=== PATIENT | female | born 1970 | race Caucasian/White ===

== ENCOUNTER 2016-08-23 16:01 | Inpatient (IN) ==
--- NOTE | 2016-08-23 16:12 | Emergency Department Note ---
Disposition Clinical Impression: Vomiting, Abdominal wall cellulitis, Abdominal pain, History of recent surgery , Cough, UTI (urinary tract infection), Incarcerated hernia of abdominal cavity , Sepsis, Anemia Disposition: Admitted As Inpatient Referrals: NO,PCP [Non-Partnered Physician] - Forms: ED Satisfaction Letter General Adult HPI - General Chief complaint: ED Nausea/Vomiting/Diarrhea Stated complaint: redness at sugical site// dizzy// N/V Source: patient Limitations: no limitations - History of Present Illness HPI Narrative: 46-year-old female reports emergency department concerned with abdominal pain, redness on the abdominal wall, and recurrent vomiting as well as a cough. The patient states she is status post hysterectomy per Dr. Snowden [facility] at this institution. She states she had surgery on the of this month. Patient is not known to be diabetic. She describes recurrent nonbloody emesis. She states all of the wounds on her abdomen or becoming red with some spreading redness noted. The patient has not had a fever. There is no history of diarrhea. She complains of abdominal pain. She also has had a cough. She states she recently treated for pneumonia. There is no history of chest pain or syncope or leg swelling or pain. No coughing up blood. There is no history of bleeding. The patient is not known to be anticoagulated. The patient thinks she may have an infection. Pain Scale: 7 - Related Data Home Medications Medication Instructions Recorded Confirmed Amlodipine Besylate 10 mg PO DAILY 12/10/15 08/14/16 Albuterol Sulfate [Albuterol 2 puff IH Q6HR PRN 04/02/16 08/14/16 Inhaler] Fluticasone/Salmeterol [Advair 1 puff IH BID 04/02/16 08/14/16 250-50 Diskus] Losartan [Cozaar] 25 mg PO DAILY 04/02/16 08/14/16 Quetiapine Fumarate [SEROquel] 150 mg PO HS 08/14/16 08/14/16 Previous Rx's Medication Instructions Recorded Buspirone HCl [Buspar] 10 mg PO TID #90 tab 03/04/16 DULoxetine [Cymbalta] 30 mg PO DAILY #30 capsule. 03/04/16 Ipratropium/Albuterol Neb [Duoneb] 3 ml IH Q4HR PRN #30 vial.neb 07/30/16 Ibuprofen [Motrin] 600 mg PO Q6HR PRN #60 tab 08/15/16 Oxycodone HCl/Acetaminophen 1 each PO Q4-6H PRN #60 tablet 08/15/16 [Percocet 5-325 mg Tablet] OxyCODONE/APAP 5/325 [Percocet 1 each PO Q4HR PRN #60 tablet 08/16/16 5/325 MG] OxyCODONE/APAP 5/325 [Percocet 1 each PO Q4HR PRN #60 tablet 08/16/16 5/325 MG] Allergies Allergy/AdvReac Type Severity Reaction Status Date / Time codeine Allergy Unresponsiv Verified 04/07/16 10:31 e risperidone [From Risperdal] Allergy Anaphylaxis Verified 04/07/16 10:31 All systems ED: reviewed and negative except as stated. Past Medical History - Past Medical History Medical history: Reports: asthma, GERD, hypertension, other Surgical history: Reports: , cholecystectomy Psychiatric history: Reports: anxiety, bipolar, depression, PTSD, schizophrenia , other [facility] history: Reports: dysfunctional uterine bleed, uterine fibroids - Social History Smoking Status: Never smoker Smokeless Tobacco Status: No Alcohol use: Reports: none Drug use: Reports: none Physical Exam - General Limitations: no limitations General appearance: alert, in no apparent distress - Head Head exam: atraumatic, normocephalic, normal inspection - Eye Eye exam: Present: normal appearance, PERRL, EOMI. Absent: scleral icterus, conjunctival injection, miosis, mydriasis - ENT ENT exam: normal exam, normal oropharynx, mucous membranes moist, TM's normal bilaterally, normal external ear exam - Neck Neck exam: Present: normal inspection, full ROM, trachea midline. Absent: tenderness - Chest Chest inspection: Present: symmetric chest wall rise. Absent: tenderness - Respiratory Respiratory exam: Present: normal lung sounds bilaterally. Absent: respiratory distress, wheezes, stridor, accessory muscle use, prolonged expiratory phase - Cardiovascular Cardiovascular exam: Present: regular rate, normal rhythm, normal heart sounds - Abdominal Exam Abdominal exam: Present: soft, tenderness, normal bowel sounds, other ( Postsurgical wounds, all show significant erythema around them, one area is about 10 cm x 10 cm. No crepitus blackening or blistering no discharge or karen fluctuance.). Absent: distention, guarding, rebound, rigidity, pulsatile mass Abdominal tenderness: Present: diffuse, moderate - Extremities Exam Extremities exam: Present: normal inspection, full ROM, normal capillary refill. Absent: tenderness, pedal edema, joint swelling, calf tenderness - Expanded Lower Extremity Exam Lower leg exam: Absent: Homans' sign Neurovascular/Tendon exam: Present: normal capillary refill. Absent: motor deficit, sensory deficit, tendon deficit, extremity cold to touch, pallor - Back Exam Back exam: Present: normal inspection, full ROM. Absent: tenderness, CVA tenderness (R), CVA tenderness (L), vertebral tenderness - Neurological Exam Neurological exam: Present: alert, oriented X3, CN II-XII intact. Absent: motor sensory deficit - Psychiatric Psychiatric exam: Present: normal affect, normal mood - Skin Skin exam: Present: warm, dry, intact, normal color. Absent: rash, cyanosis, diaphoresis, erythema, pallor, mottled Course Vital Signs Temperature 98.0 F 08/23/16 16:04 Pulse Rate 112 08/23/16 16:04 Respiratory Rate 24 08/23/16 16:04 Blood Pressure 121/77 08/23/16 16:04 O2 Sat by Pulse Oximetry 95 08/23/16 16:04 Temperature 98.0 F 08/23/16 16:04 Pulse Rate 112 08/23/16 16:04 Respiratory Rate 24 08/23/16 16:04 Blood Pressure 121/77 08/23/16 16:04 O2 Sat by Pulse Oximetry 95 08/23/16 16:04 Oxygen Delivery Oxygen Delivery Room Air Medical Decision Making - [facility] Narrative Medical decision making narrative: The patient has changes suggestive of UTI with tachycardia and tachypnea meeting sepsis criteria. IV fluid was ordered as well as vancomycin and Zosyn. The patient CT scan demonstrates what appears to be omental tissue which is incarcerated. I initially called Dr. Salas, Surgeon on-call who recommends consulting the primary surgeon regarding the case Dr. Snowden, Dr. Salas states he is availablefor consultation if Dr. Snowden needs him. I spoke with Dr. Snowden directly and consulted him regarding the patient, Dr. Tobias will admit the patient to the OB floor. He agrees with broad-spectrum antibiotics and states he will consult Dr. Salas directly. The patient is currently stable pending admission to the [facility] floor as per request by Dr. Snowden. - Lab Data Lab results reviewed: Yes I reviewed the patient's lab results. Result diagrams: 08/23/16 16:41 08/23/16 16:41 Lab Results 08/23/16 08/23/16 08/23/16 Range/Units 16:28 16:41 16:41 WBC 9.4 (4.3-11.1) K/mcL RBC 3.64 L (3.82-4.97) M/mcL Hgb 10.8 L (11.5-15.4) g/dL Hct 32.8 L (35.3-44.9) % MCV 90.1 (83.0-100.0) fL MCH 29.7 (28.0-33.3) pg MCHC 32.9 (31.6-35.5) g/dL RDW 14.4 (11.5-14.5) % Plt Count 328 (140-400) K/mcL MPV 8.4 L (9.4-12.4) fL Immature Gran % 2.0 (0-4) % Seg Neutrophils % 67.5 % Lymphocytes % 17.4 % Monocytes % 7.3 % Eosinophils % 5.3 % Basophils % 0.5 % Neutrophils # 6.3 (1.6-8.9) K/mcL Lymphocytes # 1.6 (0.6-4.6) K/mcL Monocytes # 0.7 (0.0-1.3) K/mcL Eosinophils # 0.5 (0.0-0.6) K/mcL Basophils # 0.1 (0.0-0.2) K/mcL PT 13.0 H (9.4-12.1) Seconds INR 1.2 APTT 30.0 (26.0-36.0) Seconds Sodium (136-145) mEq/L Potassium (3.5-4.5) mEq/L Chloride (98-109) mEq/L Carbon Dioxide (19-29) mEq/L BUN (7-20) mg/dL Creatinine (0.57-1.11) mg/dL Est GFR ( Amer) (> 60) Est GFR (Non-Af Amer) (> 60) BUN/Creatinine Ratio (6-26) Glucose (70-99) mg/dL Calculated Osmolality (280-300) Lactic Acid (0.5-2.2) mmol/L Calcium (8.6-10.8) mg/dL Phosphorus (2.3-4.7) mg/dL Magnesium (1.6-2.6) mg/dL Total Bilirubin (0.2-1.2) mg/dL Direct Bilirubin (0.0-0.5) mg/dL Indirect Bilirubin (0.0-1.2) mg/dL AST (5-34) Units/L ALT (0-55) Units/L Alkaline Phosphatase (38-126) Units/L Troponin I (0-0.03) ng/mL Serum Total Protein (6.0-8.3) g/dL Albumin (3.5-5.0) g/dL Globulin (2.4-3.5) g/dL Albumin/Globulin Ratio (1.1-2.2) Lipase (8-78) Units/L Urine Color Yellow (Yellow) Urine Clarity Cloudy A (Clear) Urine pH 5.5 (5.0-8.0) pH Units Ur Specific [place] 1.017 (1.010-1.025) Urine Protein Negative (Neg-Trace) mg/dL Urine Glucose (UA) Normal (Normal) mg/dL Urine Ketones Negative (Negative) mg/dL Urine Blood Moderate H (Negative) Urine Nitrite Negative (Negative) Urine Bilirubin Negative (Negative) Urine Urobilinogen Normal (Normal) mg/dL Ur Leukocyte Esterase Large H (Negative) Urine Microscopic RBC 5-15 H (0-3) per hpf Urine Microscopic WBC TNTC H (0-3) per hpf Ur Squamous Epith Cells Many H (None-Few) per lpf Urine Bacteria None Seen (None-Few) per hpf Hyaline Casts None Seen (None-Few) per lpf Ur Culture Indicated? YES A (NO) 08/23/16 08/23/16 08/23/16 Range/Units 16:41 16:41 16:41 WBC (4.3-11.1) K/mcL RBC (3.82-4.97) M/mcL Hgb (11.5-15.4) g/dL Hct (35.3-44.9) % MCV (83.0-100.0) fL MCH (28.0-33.3) pg MCHC (31.6-35.5) g/dL RDW (11.5-14.5) % Plt Count (140-400) K/mcL MPV (9.4-12.4) fL Immature Gran % (0-4) % Seg Neutrophils % % Lymphocytes % % Monocytes % % Eosinophils % % Basophils % % Neutrophils # (1.6-8.9) K/mcL Lymphocytes # (0.6-4.6) K/mcL Monocytes # (0.0-1.3) K/mcL Eosinophils # (0.0-0.6) K/mcL Basophils # (0.0-0.2) K/mcL PT (9.4-12.1) Seconds INR APTT (26.0-36.0) Seconds Sodium 141 (136-145) mEq/L Potassium 3.5 (3.5-4.5) mEq/L Chloride 107 (98-109) mEq/L Carbon Dioxide 25 (19-29) mEq/L BUN 17 (7-20) mg/dL Creatinine 1.10 (0.57-1.11) mg/dL Est GFR ( Amer) > 60 (> 60) Est GFR (Non-Af Amer) 53 L (> 60) BUN/Creatinine Ratio 15 (6-26) Glucose 91 (70-99) mg/dL Calculated Osmolality 293 (280-300) Lactic Acid 1.2 (0.5-2.2) mmol/L Calcium 9.0 (8.6-10.8) mg/dL Phosphorus 3.7 (2.3-4.7) mg/dL Magnesium 1.7 (1.6-2.6) mg/dL Total Bilirubin 0.4 (0.2-1.2) mg/dL Direct Bilirubin 0.1 (0.0-0.5) mg/dL Indirect Bilirubin 0.3 (0.0-1.2) mg/dL AST 18 (5-34) Units/L ALT 16 (0-55) Units/L Alkaline Phosphatase 107 (38-126) Units/L Troponin I 0.00 (0-0.03) ng/mL Serum Total Protein 6.9 (6.0-8.3) g/dL Albumin 3.3 L (3.5-5.0) g/dL Globulin 3.6 H (2.4-3.5) g/dL Albumin/Globulin Ratio 0.9 L (1.1-2.2) Lipase 33 (8-78) Units/L Urine Color (Yellow) Urine Clarity (Clear) Urine pH (5.0-8.0) pH Units Ur Specific [place] (1.010-1.025) Urine Protein (Neg-Trace) mg/dL Urine Glucose (UA) (Normal) mg/dL Urine Ketones (Negative) mg/dL Urine Blood (Negative) Urine Nitrite (Negative) Urine Bilirubin (Negative) Urine Urobilinogen (Normal) mg/dL Ur Leukocyte Esterase (Negative) Urine Microscopic RBC (0-3) per hpf Urine Microscopic WBC (0-3) per hpf Ur Squamous Epith Cells (None-Few) per lpf Urine Bacteria (None-Few) per hpf Hyaline Casts (None-Few) per lpf Ur Culture Indicated? (NO) - Radiology Data Radiology results reviewed: Yes I reviewed the patient's radiology results.
[2016-08-23] MEDS ORDERED: Vancomycin 1,000 MG in D5% in Water 250 ML IVPB ONE (16:37)
[2016-08-23] MEDS ORDERED: Piperacillin/Tazobactam 3.375 GM in D5% in Water (Mini-Bag+) 100 ML IVPB ONE (16:37)
[2016-08-23] MEDS ORDERED: Ondansetron 4 MG/2 ML VIAL IVP ONE (16:38)
[2016-08-23 16:39] LABS: Bilirubin,Urine Negative (Negative); Blood,Urine Moderate (Negative); Clarity,Urine Cloudy (Clear); Color,Urine Yellow (Yellow); Glucose,Urine (UA) Normal (Normal); Ketones,Urine Negative (Negative); Leukocyte Esterase,Urine Large (Negative); Nitrite,Urine Negative (Negative); PH,Urine 5.5 pH Units (5.0-8.0); Protein,Urine Negative (Neg-Trace); Specific Gravity,Urine 1.017 (1.010-1.025); Urobilinogen,Urine Normal (Normal)
[2016-08-23 16:41] LABS: Bacteria,Urine None Seen per hpf (None-Few); Hyaline Casts,Urine None Seen per lpf (None-Few); Squamous Epithelial Cell,Urine Many per lpf (None-Few); WBC,Urine TNTC per hpf (0-3)
[2016-08-23] MEDS: 0.9 % Sodium Chloride 1,000 ML IVC SCH ×2 (16:50→20:07)
[2016-08-23 16:52] LABS: Basophils # 0.1 K/mcL (0.0-0.2); Basophils % 0.5 %; Eosinophils # 0.5 K/mcL (0.0-0.6); Eosinophils % 5.3 %; Hematocrit 32.8 % (35.3-44.9); Hemoglobin 10.8 g/dL (11.5-15.4); Lymphocytes # 1.6 K/mcL (0.6-4.6); Lymphocytes % 17.4 %; Mean Corpuscular HGB Conc 32.9 g/dL (31.6-35.5); Mean Corpuscular Hemoglobin 29.7 pg (28.0-33.3); Mean Corpuscular Volume 90.1 fL (83.0-100.0); Mean Platelet Volume 8.4 fL (9.4-12.4); Monocytes # 0.7 K/mcL (0.0-1.3); Monocytes % 7.3 %; Neutrophils # 6.3 K/mcL (1.6-8.9); Platelet Count 328 K/mcL (140-400); Red Blood Count 3.64 M/mcL (3.82-4.97); Red Cell Distribution Width 14.4 % (11.5-14.5); Segmented Neutrophils % 67.5 %
[2016-08-23 16:57] LABS: INR 1.2
[2016-08-23 17:08] LABS: Alanine Aminotransferase 16 Units/L (0-55); Albumin 3.3 g/dL (3.5-5.0); Albumin/Globulin Ratio 0.9 (1.1-2.2); Alkaline Phosphatase 107 Units/L (38-126); Aspartate Amino Transferase 18 Units/L (5-34); BUN/Creatinine Ratio 15 (6-26); Bilirubin,Direct 0.1 mg/dL (0.0-0.5); Bilirubin,Indirect 0.3 mg/dL (0.0-1.2); Bilirubin,Total 0.4 mg/dL (0.2-1.2); Blood Urea Nitrogen 17 mg/dL (7-20); Carbon Dioxide 25 mEq/L (19-29); Chloride 107 mEq/L (98-109); Globulin 3.6 g/dL (2.4-3.5); Glucose 91 mg/dL (70-99); Lipase 33 Units/L (8-78); Magnesium 1.7 mg/dL (1.6-2.6); Osmolality,Calculated 293 (280-300); Phosphorous 3.7 mg/dL (2.3-4.7); Potassium 3.5 mEq/L (3.5-4.5); Sodium 141 mEq/L (136-145); Total Protein 6.9 g/dL (6.0-8.3); eGFR For African Americans > 60 (> 60); eGFR For Non-African Americans 53 (> 60)
[2016-08-23] MEDS ORDERED: 0.9 % Sodium Chloride 1,000 ML IVC ONE (18:07)
[2016-08-23] MEDS ORDERED: *HR* FentaNYL (PF) 100 MCG/2 ML VIAL ONE (21:19)
[2016-08-23] MEDS ORDERED: *HR* Succinylcholine 200 MG/10 ML VIAL IVP ONE (21:19)
[2016-08-23] MEDS ORDERED: *HR* Propofol 200 MG/20 ML VIAL IVP ONE (21:19)
[2016-08-23] MEDS ORDERED: *HR* Midazolam HCl 2 MG/2 ML VIAL ONE (21:19)
[2016-08-23] MEDS ORDERED: Lidocaine -MPF 2% 2 ML VIAL ONE (21:19)
[2016-08-23] MEDS ORDERED: *HR* Phenylephrine 10 MG/ML VIAL ONE (21:20)
[2016-08-23] MEDS ORDERED: Dexamethasone 4 MG/ML VIAL ONE (21:20)
[2016-08-23] MEDS ORDERED: Ondansetron 4 MG/2 ML VIAL ONE (21:20)
--- NOTE | 2016-08-23 21:36 | Anesthesia Evaluation PreOp ---
Date of Encounter: 08/23/16 - Past History Planned Operation: Ex laparotomy Cardiac History: HTN, Hyperlipidemia, Arrhythmia (bradycardia) Pulmonary History: Asthma [facility] [place] History: Denies Any Significant HX Other Medical History: GERD, Other (Bipolar) Anesthesia History: No Prior Anesthetic Complications Alcohol Use: none Drug use: none Medications and Allergies Amlodipine Besylate 10 mg PO DAILY 12/10/15 [History] Buspirone HCl [Buspar] 10 mg PO TID #90 tab 03/04/16 [Rx] DULoxetine [Cymbalta] 30 mg PO DAILY #30 capsule.dr 03/04/16 [Rx] Albuterol Sulfate [Albuterol Inhaler] 2 puff IH Q6HR PRN 04/02/16 [History] Fluticasone/Salmeterol [Advair 250-50 Diskus] 1 puff IH BID 04/02/16 [History] Losartan [Cozaar] 25 mg PO DAILY 04/02/16 [History] Ipratropium/Albuterol Neb [Duoneb] 3 ml IH Q4HR PRN #30 vial.neb 07/30/16 [Rx] Quetiapine Fumarate [SEROquel] 150 mg PO HS 08/14/16 [History] Ibuprofen [Motrin] 600 mg PO Q6HR PRN #60 tab 08/15/16 [Rx] Oxycodone HCl/Acetaminophen [Percocet 5-325 mg Tablet] 1 each PO Q4-6H PRN #60 tablet 08/15/16 [Rx] OxyCODONE/APAP 5/325 [Percocet 5/325 MG] 1 each PO Q4HR PRN #60 tablet 08/16/16 [Rx] OxyCODONE/APAP 5/325 [Percocet 5/325 MG] 1 each PO Q4HR PRN #60 tablet 08/16/16 [Rx] Allergies codeine Allergy (Verified 04/07/16 10:31) Unresponsive risperidone [From Risperdal] Allergy (Verified 04/07/16 10:31) Anaphylaxis - Meds/Allergy Pre-op Review Medications Reviewed: Yes Allergies Reviewed: Yes Beta Blockers on Current Med List: No Anesthesia Results - Labs 08/23/16 16:41 08/23/16 16:41 - Imaging EKG: report reviewed, image reviewed (SR) Additional studies: TTE: LVEF 60% normal LV size/function normal RV size/function no valvular dysfunction no pulm htn Anesthesia Exam Last Vital Signs Temp 98.5 F 08/23/16 20:27 Pulse 93 08/23/16 20:27 Resp 15 08/23/16 20:27 BP 138/87 08/23/16 20:27 Pulse Ox 95 08/23/16 20:27 Weight: 87 kg NPO (# of Hours): >> 8 hrs
[2016-08-23] MEDS: Ringers Solution, Lactated 1,000 ML IVC SCH (22:35)
[2016-08-23] MEDS: Piperacillin/Tazobactam 3.375 GM in D5% in Water (Mini-Bag+) 100 ML IVPB SCH (23:15)
--- NOTE | 2016-08-23 23:28 | OB/GYN History & Physical ---
Date of Encounter: 08/24/16 Time of Encounter: 22:47 Assessment and Plan (1) Incarcerated hernia of abdominal cavity Current visit: Yes Status: Acute I spoke to Dr Salas and he also confirms that there is no bowel involved and he agrees that the hernia needs to be fixed, I have spoken to the patient and counseled her that I will reopen the incision and relieve the incarceration, she agreed, consent signed, OR called to add her on currently on Zosyn History of Present Illness HPI: Ms. Mckeon is a 46 year old female s/p RA [facility] almost 2 weeks ago who presented with a UTI in the ED. The ED did a CT scan of the pelvic and it showed incarceration of omentum on one of the port sites. No bowels were noted to be included. The patient does not report fevers, chills, nausea or vomiting, her pain is under control. Past Med Surg Social Fam HX - Past Medical History Medical history: asthma, GERD, hypertension, other Psychiatric history: anxiety, bipolar, depression, PTSD, schizophrenia, other - Past Surgical History Surgical History: , cholecystectomy - Social History Smoking Status: Never smoker Smokeless Tobacco Status: No Alcohol use: none Drug use: none - Family History Grandfather Living Status: Still Living Hx Family Endocrine Disorder: Yes (DM) Father Living Status: Still Living Hx Family Cardiac Disorders: Yes (HTN) Mother Living Status: Still Living Hx Family Cardiac Disorders: Yes (HTN) Hx Family Respiratory Disorders: No Hx Family Cancer: No Hx Family GI Disorders: No Hx Family Endocrine Disorder: No Hx Family Musculoskeletal Disorders: No Hx Family Neuromuscular Disorders: No Hx Family Neurologic Disorders: No Hx Family HEENT Disorders: No Hx Family Autoimmune Disorders: No Hx Family Reproductive Disorders: No Hx Family Psychosocial Disorders: Yes (Bipolar) Hx Family Medical Disorders: No Medications and Allergies Amlodipine Besylate 10 mg PO DAILY 12/10/15 [History] Buspirone HCl [Buspar] 10 mg PO TID #90 tab 03/04/16 [Rx] DULoxetine [Cymbalta] 30 mg PO DAILY #30 capsule. 03/04/16 [Rx] Albuterol Sulfate [Albuterol Inhaler] 2 puff IH Q6HR PRN 04/02/16 [History] Fluticasone/Salmeterol [Advair 250-50 Diskus] 1 puff IH BID 04/02/16 [History] Losartan [Cozaar] 25 mg PO DAILY 04/02/16 [History] Ipratropium/Albuterol Neb [Duoneb] 3 ml IH Q4HR PRN #30 vial.neb 07/30/16 [Rx] Quetiapine Fumarate [SEROquel] 150 mg PO HS 08/14/16 [History] Ibuprofen [Motrin] 600 mg PO Q6HR PRN #60 tab 08/15/16 [Rx] Oxycodone HCl/Acetaminophen [Percocet 5-325 mg Tablet] 1 each PO Q4-6H PRN #60 tablet 08/15/16 [Rx] OxyCODONE/APAP 5/325 [Percocet 5/325 MG] 1 each PO Q4HR PRN #60 tablet 08/16/16 [Rx] OxyCODONE/APAP 5/325 [Percocet 5/325 MG] 1 each PO Q4HR PRN #60 tablet 08/16/16 [Rx] Allergies codeine Allergy (Verified 04/07/16 10:31) Unresponsive risperidone [From Risperdal] Allergy (Verified 04/07/16 10:31) Anaphylaxis Review of System OB All systems PM: reviewed and no additional remarkable complaints except as stated Exam - Vital Signs Vital signs: Initial Vital Signs Temp Pulse Resp BP Pulse Ox 98.0 F 112 24 121/77 95 08/23/16 16:04 08/23/16 16:04 08/23/16 16:04 08/23/16 16:04 08/23/16 16:04 - Constitutional Constitutional: well nourished - HEENT HEENT: PERRL - Neck Neck exam: full ROM - Lungs Respiratory exam: CTAB - Cardiovascular Cardiovascular exam: RRR - Abdomen Abdomen: Present: bowel sounds normal, non tender (The port sites show evidence of adequate healing, no signs of infection/cellulitis, the sub hepatic port site is indurated but non tender) Results Result Diagrams: 08/23/16 16:41 08/23/16 16:41 Abnormal lab results RBC 3.64 M/mcL (3.82-4.97) L 08/23/16 16:41 Hgb 10.8 g/dL (11.5-15.4) L 08/23/16 16:41 Hct 32.8 % (35.3-44.9) L 08/23/16 16:41 MPV 8.4 fL (9.4-12.4) L 08/23/16 16:41 PT 13.0 Seconds (9.4-12.1) H 08/23/16 16:41 Est GFR (Non-Af Amer) 53 (> 60) L 08/23/16 16:41 Albumin 3.3 g/dL (3.5-5.0) L 08/23/16 16:41 Globulin 3.6 g/dL (2.4-3.5) H 08/23/16 16:41 Albumin/Globulin Ratio 0.9 (1.1-2.2) L 08/23/16 16:41 Urine Clarity Cloudy (Clear) A 08/23/16 16:28 Urine Blood Moderate (Negative) H 08/23/16 16:28 Ur Leukocyte Esterase Large (Negative) H 08/23/16 16:28 Urine Microscopic RBC 5-15 per hpf (0-3) H 08/23/16 16:28 Urine Microscopic WBC TNTC per hpf (0-3) H 08/23/16 16:28 Ur Squamous Epith Cells Many per lpf (None-Few) H 08/23/16 16:28 Ur Culture Indicated? YES (NO) A 08/23/16 16:28 All other labs normal.
[2016-08-24] MEDS: Piperacillin/Tazobactam 3.375 GM in D5% in Water (Mini-Bag+) 100 ML IVPB SCH ×2 (07:48→15:22)
[2016-08-24] MEDS: Ringers Solution, Lactated 1,000 ML IVC SCH ×3 (11:01→20:56)
--- NOTE | 2016-08-24 11:20 | Anesthesia Evaluation PreOp ---
Date of Encounter: 08/24/16 Time of Encounter: 11:18 - Past History Planned Operation: EXploratory Laparotomy Cardiac History: HTN, Hyperlipidemia, Arrhythmia (Bradycardia) Pulmonary History: Asthma Other Medical History: GERD Anesthesia History: No Prior Anesthetic Complications, Past Anesthesia (Robotic Assisted Hysterectomy) : No Alcohol Use: none Drug use: none Medications and Allergies Amlodipine Besylate 10 mg PO DAILY 12/10/15 [History] Buspirone HCl [Buspar] 10 mg PO TID #90 tab 03/04/16 [Rx] DULoxetine [Cymbalta] 30 mg PO DAILY #30 capsule.dr 03/04/16 [Rx] Albuterol Sulfate [Albuterol Inhaler] 2 puff IH Q6HR PRN 04/02/16 [History] Fluticasone/Salmeterol [Advair 250-50 Diskus] 1 puff IH BID 04/02/16 [History] Losartan [Cozaar] 25 mg PO DAILY 04/02/16 [History] Ipratropium/Albuterol Neb [Duoneb] 3 ml IH Q4HR PRN #30 vial.neb 07/30/16 [Rx] Quetiapine Fumarate [SEROquel] 150 mg PO HS 08/14/16 [History] Ibuprofen [Motrin] 600 mg PO Q6HR PRN #60 tab 08/15/16 [Rx] Oxycodone HCl/Acetaminophen [Percocet 5-325 mg Tablet] 1 each PO Q4-6H PRN #60 tablet 08/15/16 [Rx] OxyCODONE/APAP 5/325 [Percocet 5/325 MG] 1 each PO Q4HR PRN #60 tablet 08/16/16 [Rx] OxyCODONE/APAP 5/325 [Percocet 5/325 MG] 1 each PO Q4HR PRN #60 tablet 08/16/16 [Rx] Allergies codeine Allergy (Verified 04/07/16 10:31) Unresponsive risperidone [From Risperdal] Allergy (Verified 04/07/16 10:31) Anaphylaxis - Meds/Allergy Pre-op Review Medications Reviewed: Yes Allergies Reviewed: Yes Beta Blockers on Current Med List: No Anesthesia Results - Labs 08/23/16 16:41 08/23/16 16:41 Anesthesia Exam O2 Sat Height 1.55 m Height 1.55 m Weight 86.693 kg Weight 86.693 kg Weight 83.915 kg O2 Sat by Pulse Oximetry 97 O2 Sat by Pulse Oximetry 95 O2 Sat by Pulse Oximetry 93 O2 Sat by Pulse Oximetry 95 O2 Sat by Pulse Oximetry 95 O2 Sat by Pulse Oximetry 95 Vital Signs Temp Pulse Resp BP Pulse Ox 98.0 F 112 24 121/77 95 08/23/16 16:04 08/23/16 16:04 08/23/16 16:04 08/23/16 16:04 08/23/16 16:04 Vital Signs/O2 Sat, Most Current Temp Pulse Resp BP Pulse Ox 97.6 F 71 16 123/81 97 08/24/16 08:25 08/24/16 08:25 08/24/16 08:25 08/24/16 08:25 08/24/16 08:25 Height: 5'1'' Weight: 191# NPO (# of Hours): > 8 hrs Pain Scale: 0 Pain Scale Used: Numeric (1 - 10) - HEENT Pupil (Motor): Pupils equal, EOMI Mallampati: II Teeth: Edentulous Oral Opening: Greater than 3 - SYNTHETIC FILAMENT EXTRUDER LOC: Oriented SYNTHETIC FILAMENT EXTRUDER Motor: Normal RUE, Normal LUE, Normal RLE, Normal LLE, Normal Face SYNTHETIC FILAMENT EXTRUDER Sensory: Normal: RUE, LUE, RLE, LLE, Face - Cardiac Rhythm: Regular Murmur: None JVD: No Carotid Bruit: No - Pulmonary Breath Sounds: bilateral Clear Respiratory Effort: Symmetrical Anesthesia Assess/Plan ASA Score: 2 Modified [place] Scale for Level of Consciousness: Cooperative, oriented, and tranquil Anesthetic Plan: General Autologous Blood: Yes Monitoring Plan: Standard Monitors Recovery Plan: PACU
[2016-08-24] MEDS ORDERED: Ondansetron 4 MG/2 ML VIAL IVP ONE (11:21)
[2016-08-24] MEDS ORDERED: Albuterol 2.5 MG/3 ML NEBULIZER IH ONE ×2 (11:21→12:16)
[2016-08-24] MEDS ORDERED: *HR* Labetalol 100 MG/20 ML MDV IVP PRN (11:21)
[2016-08-24] MEDS ORDERED: *HR* Promethazine 25 MG/ML VIAL IVP PRN (11:21)
[2016-08-24] MEDS ORDERED: *HR* Midazolam HCl 2 MG/2 ML VIAL ONE (11:35)
[2016-08-24] MEDS ORDERED: *HR* Propofol 200 MG/20 ML VIAL IVP ONE (11:35)
[2016-08-24] MEDS ORDERED: *HR* FentaNYL (PF) 100 MCG/2 ML VIAL ONE (11:35)
[2016-08-24] MEDS ORDERED: Dexamethasone 4 MG/ML VIAL ONE (11:37)
[2016-08-24] MEDS ORDERED: Lidocaine -MPF 2% 2 ML VIAL ONE (11:37)
[2016-08-24] MEDS ORDERED: *HR* Rocuronium Bromide 50 MG/5 ML VIAL ONE (11:37)
[2016-08-24] MEDS ORDERED: *HR* Succinylcholine 200 MG/10 ML VIAL IVP ONE (11:37)
[2016-08-24] MEDS ORDERED: Ondansetron 4 MG/2 ML VIAL ONE (11:37)
--- NOTE | 2016-08-24 12:08 | History & Physical Report ---
Date of Encounter: 08/24/16 Time of Encounter: 12:07 24 Hour HP Update - Instructions Instructions: If the History and Physical is less than 30 days old and was completed prior to A.M. admission and or procedure and has NOT been updated on calendar day of procedure please complete this update prior to performing procedure. - Update Patient reports changes in Medical Condition: Yes Changes in examination, assessment, or condition: Yes Changes in Medication: No Preop tests/diagnostics Reviewed: Yes Surgery Remains Indicated: Yes Consent for Planned Operative Procedure(s) Verified: Yes - Pre-Operative Checklist Preoperative Checklist Indicated: Yes Prophylactic Antibiotic Ordered: Yes Home Medications Include Beta Terrie: No Beta Terrie Taken Today (Day of Surgery): No Beta Terrie Taken Yesterday (Day Prior to Surgery): No Is VTE Prophylaxis Indicated?: Yes
[2016-08-24] MEDS ORDERED: ceFAZolin 2,000 MG in D5% in Water 100 ML IVPB ONE (12:14)
[2016-08-24] MEDS ORDERED: Ibuprofen 600 MG TABLET PO PRN (13:42)
--- NOTE | 2016-08-24 13:54 | OB/GYN Procedure Note ---
OB-PLANT GENERAL MANAGER: Procedure - Diagnosis Date of procedure: 08/24/16 Pre-op diagnosis: ventral hernia, incarcerated omentum Post-op diagnosis: same - Procedure Procedure: ex lap, repair of ventral hernia, resection of incarcerated omentum Surgeon: Gerry Resendez Anesthesia Type: General Estimated blood loss (cc): 20 Fluids: crystalloid Procedure Complications: none Specimens collected: none Disposition: floor Findings: incarcerated omentum Narrative: After informed consent was signed, the patient was taken to the OR where adequate anesthesia was administered. She was prepped and draped in sterile manner. The sub hepatic port site from her recent RA TLH was opened with a knife , the inflammatory exudate was suctioned. A piece of omentum was noted to be through the fascia. Very carefully , the fascia was opened up with a second knife and the omentum was freed. A nathan clamp was placed at the border between the incarcerated omentum and normal looking omentum. The incarcerated omentum was then transected with the bovie. 0-vicryl suture was used to tie of the border after which the nathan clamp was removed. The omentum was then placed back into the abdomen. After observing hemostasis, I proceeded to close the fascia with 0- vicryl, 3-0 vicryl was used to close the subcutaneous tissue, 4- 0 vicryl was used to close the skin. The patient tolerated the procedure well and was taken to the recovery room in stable condition.
[2016-08-24] MEDS: *HR* HYDROmorphone (PF) 1 MG/ML SYRINGE IVP PRN ×3 (13:55→15:23)
[2016-08-25] MEDS: *HR* OxyCODONE/APAP 5/325 TABLET PO PRN ×3 (00:20→22:51)
[2016-08-25] MEDS: Piperacillin/Tazobactam 3.375 GM in D5% in Water (Mini-Bag+) 100 ML IVPB SCH ×2 (00:22→08:17)
[2016-08-25] MEDS: Ringers Solution, Lactated 1,000 ML IVC SCH ×4 (04:21→20:37)
[2016-08-25 07:41] LABS: Basophils % 0.4 %; Eosinophils # 0.1 K/mcL (0.0-0.6); Eosinophils % 0.6 %; Immature Granulocytes % 1.8 % (0-4); Lymphocytes # 1.6 K/mcL (0.6-4.6); Mean Corpuscular HGB Conc 33.3 g/dL (31.6-35.5); Mean Corpuscular Hemoglobin 29.8 pg (28.0-33.3); Mean Corpuscular Volume 89.3 fL (83.0-100.0); Mean Platelet Volume 8.7 fL (9.4-12.4); Monocytes # 0.6 K/mcL (0.0-1.3); Monocytes % 5.5 %; Neutrophils # 8.8 K/mcL (1.6-8.9); Platelet Count 335 K/mcL (140-400); Red Blood Count 3.36 M/mcL (3.82-4.97); Red Cell Distribution Width 13.8 % (11.5-14.5); Segmented Neutrophils % 77.7 %
--- NOTE | 2016-08-25 13:47 | OB/GYN Progress Note ---
Date of Encounter: 08/25/16 Time of Encounter: 13:43 - Assessment and Plan (1) Incarcerated hernia of abdominal cavity Current Visit: Yes Status: Acute Incarcerated hernia involving omentum status post repair, POD# 1, I have spoken to the nurse and let her know that from a surgical standpoint, the patient can be discharged, the issue though is that Psych is now involved and they will be coming shortly to see her, the plan at this time is to transfer her to the Psych unit and from there she will be discharged to a Rehab facility for continued care, I'm available if any questions or needs arise. Otherwise I will be signing off. Subjective - Subjective Interval history: saw and examined patient, doing well this AM, pain is under control, reports that she has not had a bowel movement x 5 days, she does have a history of constipation, julian is in place but I have asked the nurses to remove it, overnight she went into one of her episodes where she started saying she wished she didn't wake up. She does have an extensive psych history. She reports that she had breakfast this AM and is passing a lot of gas. Objective - Vital Signs Latest vital signs: Vital Signs Temp Pulse Resp BP Pulse Ox 08/25/16 10:46 98.2 F 76 16 151/94 96 08/25/16 07:10 94 08/25/16 06:38 98.3 F 74 17 138/89 94 08/25/16 03:27 98.4 F 80 16 130/94 95 08/24/16 23:00 98.1 F 88 18 152/68 96 08/24/16 19:44 98.2 F 82 16 109/61 96 08/24/16 17:43 94 18 122/69 96 08/24/16 17:12 96 18 131/96 96 08/24/16 16:50 96 18 121/64 96 08/24/16 16:15 83 17 116/82 94 08/24/16 15:58 98 18 122/77 94 08/24/16 15:27 90 18 124/77 94 08/24/16 15:07 89 18 136/84 95 08/24/16 14:49 98.7 F 89 18 146/87 94 08/24/16 14:25 98.3 F 97 16 110/74 96 08/24/16 14:15 98.1 F 91 16 122/78 96 08/24/16 14:05 97 16 123/85 97 08/24/16 13:55 85 16 123/81 96 08/24/16 13:45 98.1 F 99 16 139/78 95 Intake and Output 08/24/16 08/25/16 08/25/16 23:59 07:59 15:59 Intake Total 2190 / 2190 1100 / 1100 2500 / 2500 Output Total 975 / 975 3475 / 3475 1150 / 1150 Balance 1215 / 1215 -2375 / -2375 1350 / 1350 Intake: IV Fluids 1100 / 1100 1100 / 1100 1100 / 1100 Lactated Ringers 1,000 ML 1000 / 1000 1000 / 1000 1000 / 1000 @ 125 mls/hr IVC .Q8H BISHOP Rx#:[id number] Zosyn 3.375 GM In 100 / 100 100 / 100 100 / 100 Dextrose 5% (Minibag+) 100 ML 100 ML @ 25 mls/hr IVPB Q8HR BISHOP Rx#: [id number] Oral 1090 / 1090 600 / 600 Free Water 800 / 800 Output: Catheter 975 / 975 3475 / 3475 1150 / 1150 Other: Meal Dinner Lunch Percent of Meal Consumed 75% 70% Weight 84.4 kg Patient Weight 08/25/16 23:59 Weight 84.4 kg - I&O's I&O's: Intake & Output 08/22/16 08/23/16 08/24/16 08/25/16 23:59 23:59 23:59 23:59 Intake Total 2190 / 3490 3600 / 3600 Output Total 995 / 2745 4625 / 4625 Balance 1195 / 745 -1025 / -1025 Weight 84.4 kg - Exam Lungs: bilateral: normal Chest: Normal S1, Normal S2 Extremities: Present: normal Abdomen: Present: normal appearance (the prior incision sites continue to show signs of appropriate healing, the current surgical site is clean and dry) - Labs Labs: Abnormal lab results WBC 11.3 K/mcL (4.3-11.1) H 08/25/16 06:46 RBC 3.36 M/mcL (3.82-4.97) L 08/25/16 06:46 Hgb 10.0 g/dL (11.5-15.4) L 08/25/16 06:46 Hct 30.0 % (35.3-44.9) L 08/25/16 06:46 MPV 8.7 fL (9.4-12.4) L 08/25/16 06:46 PT 13.0 Seconds (9.4-12.1) H 08/23/16 16:41 Est GFR (Non-Af Amer) 53 (> 60) L 08/23/16 16:41 POC Glucose 100 (58-89) H 08/24/16 05:32 Albumin 3.3 g/dL (3.5-5.0) L 08/23/16 16:41 Globulin 3.6 g/dL (2.4-3.5) H 08/23/16 16:41 Albumin/Globulin Ratio 0.9 (1.1-2.2) L 08/23/16 16:41 Urine Clarity Cloudy (Clear) A 08/23/16 16:28 Urine Blood Moderate (Negative) H 08/23/16 16:28 Ur Leukocyte Esterase Large (Negative) H 08/23/16 16:28 Urine Microscopic RBC 5-15 per hpf (0-3) H 08/23/16 16:28 Urine Microscopic WBC TNTC per hpf (0-3) H 08/23/16 16:28 Ur Squamous Epith Cells Many per lpf (None-Few) H 08/23/16 16:28 Ur Culture Indicated? YES (NO) A 08/23/16 16:28 Consult Discharge Plan - Plan Referrals: Yoni Mcneal MD [Primary Care Provider] -
--- NOTE | 2016-08-25 14:45 | Consult Note ---
Date of Encounter: 08/25/16 Time of Encounter: 14:10 Assessment & Recommendation (1) Bipolar 1 disorder Current visit: No Status: Acute Assessment & Recommendation: Admit patient to psychiatry after medical stabilization and clearance. [place] slip is recommended. History of Present Illness Patient: known to practice within the last 3 years Requesting Physician: Gerry Resendez MD Reason for consult: Suicidal ideation History of present illness: Ms. Mckeon is a 46 year old female admitted to the hospital for evaluation treatment of abdominal pain, she underwent surgery to repair incarcerated ventral hernia. Psychiatric consultation was requested regarding suicidal ideation. Patient had history of psychiatric treatment for bipolar disorder and has been making statements of her intense suicide and wishing to . Patient was seen in consultation 2 weeks ago after having hysterectomy and did not have any acute psychiatric issues. She feels overwhelmed and unable to cope with multiple stressors including surgery. CC: Gerry Resendez MD Past Med Surg Social Fam HX - Past Medical History Medical history: asthma, GERD, hypertension, other - Past Surgical History Surgical History: , cholecystectomy - Social History Smoking Status: Never smoker Smokeless Tobacco Status: No Alcohol use: none Drug use: none - Family History Grandfather Living Status: Still Living Hx Family Endocrine Disorder: Yes (DM) Father Living Status: Still Living Hx Family Cardiac Disorders: Yes (HTN) Mother Living Status: Still Living Hx Family Cardiac Disorders: Yes (HTN) Hx Family Respiratory Disorders: No Hx Family Cancer: No Hx Family GI Disorders: No Hx Family Endocrine Disorder: No Hx Family Musculoskeletal Disorders: No Hx Family Neuromuscular Disorders: No Hx Family Neurologic Disorders: No Hx Family HEENT Disorders: No Hx Family Autoimmune Disorders: No Hx Family Reproductive Disorders: No Hx Family Psychosocial Disorders: Yes (Bipolar) Hx Family Medical Disorders: No Medications & Allergies Amlodipine Besylate 10 mg PO DAILY 12/10/15 [History] Buspirone HCl [Buspar] 10 mg PO TID #90 tab 03/04/16 [Rx] DULoxetine [Cymbalta] 30 mg PO DAILY #30 capsule. 03/04/16 [Rx] Albuterol Sulfate [Albuterol Inhaler] 2 puff IH Q6HR PRN 04/02/16 [History] Fluticasone/Salmeterol [Advair 250-50 Diskus] 1 puff IH BID 04/02/16 [History] Losartan [Cozaar] 25 mg PO DAILY 04/02/16 [History] Ipratropium/Albuterol Neb [Duoneb] 3 ml IH Q4HR PRN #30 vial.neb 07/30/16 [Rx] Quetiapine Fumarate [SEROquel] 150 mg PO HS 08/14/16 [History] Ibuprofen [Motrin] 600 mg PO Q6HR PRN #60 tab 08/15/16 [Rx] OxyCODONE/APAP 5/325 [Percocet 5/325 MG] 1 each PO Q4HR PRN #60 tablet 08/16/16 [Rx] Allergies codeine Allergy (Verified 04/07/16 10:31) Unresponsive risperidone [From Risperdal] Allergy (Verified 04/07/16 10:31) Anaphylaxis Mental Status Exam Patient orientation: Yes Person, Yes Time, Yes Place Level of alertness: Alert Patient appearance: Appropriate, Unkempt Behavior: cooperative, anxious Psychomotor activity: Increased Eye contact: Fleeting Contact Mood description: Depressed, Anxious, Labile Affect description: congruent with mood, labile, anxious Speech pattern: Normal rate, Normal rhythm, Normal tone Speech volume: Normal Thought process: Linear, Goal Oriented Thought content: Yes Suicidal ideation, No Homicidal ideation, No Overt delusions, Yes Preoccupation, Yes Obsessive thoughts Perceptual disturbances: No Auditory hallucinations, No Visual hallucinations Attention span: Capable of Focused Attention Memory description: Grossly Intact Patient reliability: Reliable Historian Intelligence estimate: Below Average Judgment: Limited Insight: Partial Results - Vital Signs Vital signs: Temp Pulse Resp BP Pulse Ox 98.2 F 76 16 151/94 96 08/25/16 10:46 08/25/16 10:46 08/25/16 10:46 08/25/16 10:46 08/25/16 10:46 - Labs Labs: Laboratory Last Values WBC 11.3 K/mcL (4.3-11.1) H 08/25/16 06:46 RBC 3.36 M/mcL (3.82-4.97) L 08/25/16 06:46 Hgb 10.0 g/dL (11.5-15.4) L 08/25/16 06:46 Hct 30.0 % (35.3-44.9) L 08/25/16 06:46 MCV 89.3 fL (83.0-100.0) 08/25/16 06:46 MCH 29.8 pg (28.0-33.3) 08/25/16 06:46 MCHC 33.3 g/dL (31.6-35.5) 08/25/16 06:46 RDW 13.8 % (11.5-14.5) 08/25/16 06:46 Plt Count 335 K/mcL (140-400) 08/25/16 06:46 MPV 8.7 fL (9.4-12.4) L 08/25/16 06:46 Immature Gran % 1.8 % (0-4) 08/25/16 06:46 Seg Neutrophils % 77.7 % 08/25/16 06:46 Lymphocytes % 14.0 % 08/25/16 06:46 Monocytes % 5.5 % 08/25/16 06:46 Eosinophils % 0.6 % 08/25/16 06:46 Basophils % 0.4 % 08/25/16 06:46 Neutrophils # 8.8 K/mcL (1.6-8.9) 08/25/16 06:46 Lymphocytes # 1.6 K/mcL (0.6-4.6) 08/25/16 06:46 Monocytes # 0.6 K/mcL (0.0-1.3) 08/25/16 06:46 Eosinophils # 0.1 K/mcL (0.0-0.6) 08/25/16 06:46 Basophils # 0.0 K/mcL (0.0-0.2) 08/25/16 06:46 PT 13.0 Seconds (9.4-12.1) H 08/23/16 16:41 INR 1.2 08/23/16 16:41 APTT 30.0 Seconds (26.0-36.0) 08/23/16 16:41 Sodium 141 mEq/L (136-145) 08/23/16 16:41 Potassium 3.5 mEq/L (3.5-4.5) 08/23/16 16:41 Chloride 107 mEq/L (98-109) 08/23/16 16:41 Carbon Dioxide 25 mEq/L (19-29) 08/23/16 16:41 BUN 17 mg/dL (7-20) 08/23/16 16:41 Creatinine 1.10 mg/dL (0.57-1.11) 08/23/16 16:41 Est GFR ( Amer) > 60 (> 60) 08/23/16 16:41 Est GFR (Non-Af Amer) 53 (> 60) L 08/23/16 16:41 BUN/Creatinine Ratio 15 (6-26) 08/23/16 16:41 Glucose 91 mg/dL (70-99) 08/23/16 16:41 POC Glucose 100 (58-89) H 08/24/16 05:32 Calculated Osmolality 293 (280-300) 08/23/16 16:41 Lactic Acid 1.2 mmol/L (0.5-2.2) 08/23/16 16:41 Calcium 9.0 mg/dL (8.6-10.8) 08/23/16 16:41 Phosphorus 3.7 mg/dL (2.3-4.7) 08/23/16 16:41 Magnesium 1.7 mg/dL (1.6-2.6) 08/23/16 16:41 Total Bilirubin 0.4 mg/dL (0.2-1.2) 08/23/16 16:41 Direct Bilirubin 0.1 mg/dL (0.0-0.5) 08/23/16 16:41 Indirect Bilirubin 0.3 mg/dL (0.0-1.2) 08/23/16 16:41 AST 18 Units/L (5-34) 08/23/16 16:41 ALT 16 Units/L (0-55) 08/23/16 16:41 Alkaline Phosphatase 107 Units/L (38-126) 08/23/16 16:41 Troponin I 0.00 ng/mL (0-0.03) 08/23/16 16:41 Serum Total Protein 6.9 g/dL (6.0-8.3) 08/23/16 16:41 Albumin 3.3 g/dL (3.5-5.0) L 08/23/16 16:41 Globulin 3.6 g/dL (2.4-3.5) H 08/23/16 16:41 Albumin/Globulin Ratio 0.9 (1.1-2.2) L 08/23/16 16:41 Lipase 33 Units/L (8-78) 08/23/16 16:41 Urine Color Yellow (Yellow) 08/23/16 16:28 Urine Clarity Cloudy (Clear) A 08/23/16 16:28 Urine pH 5.5 pH Units (5.0-8.0) 08/23/16 16:28 Ur Specific [place] 1.017 (1.010-1.025) 08/23/16 16:28 Urine Protein Negative mg/dL (Neg-Trace) 08/23/16 16:28 Urine Glucose (UA) Normal mg/dL (Normal) 08/23/16 16:28 Urine Ketones Negative mg/dL (Negative) 08/23/16 16:28 Urine Blood Moderate (Negative) H 08/23/16 16:28 Urine Nitrite Negative (Negative) 08/23/16 16:28 Urine Bilirubin Negative (Negative) 08/23/16 16:28 Urine Urobilinogen Normal mg/dL (Normal) 08/23/16 16:28 Ur Leukocyte Esterase Large (Negative) H 08/23/16 16:28 Urine Microscopic RBC 5-15 per hpf (0-3) H 08/23/16 16:28 Urine Microscopic WBC TNTC per hpf (0-3) H 08/23/16 16:28 Ur Squamous Epith Cells Many per lpf (None-Few) H 08/23/16 16:28 Urine Bacteria None Seen per hpf (None-Few) 08/23/16 16:28 Hyaline Casts None Seen per lpf (None-Few) 08/23/16 16:28 Ur Culture Indicated? YES (NO) A 08/23/16 16:28 Consult Discharge Plan - Plan Referrals: Yoni Mcneal MD [Primary Care Provider] -
[2016-08-25] MEDS ORDERED: Ondansetron 4 MG/2 ML VIAL IVP PRN (22:29)
[2016-08-26] MEDS: Ringers Solution, Lactated 1,000 ML IVC SCH ×2 (04:54→11:29)
--- NOTE | 2016-08-26 07:23 | Electrocardiograph Report ---
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
[2016-08-26] MEDS: *HR* OxyCODONE/APAP 5/325 TABLET PO PRN ×3 (09:41→22:00)
[2016-08-27] MEDS: Ringers Solution, Lactated 1,000 ML IVC SCH ×4 (03:50→20:06)
[2016-08-27] MEDS: *HR* OxyCODONE/APAP 5/325 TABLET PO PRN ×3 (05:26→23:18)
[2016-08-27] MEDS ORDERED: Fluconazole 100 MG TABLET PO ONE (10:27)
--- NOTE | 2016-08-27 10:30 | Event Note ---
Date of Encounter: 08/27/16 Time of Encounter: 10:28 Kyra SIERRA called. Pt continues to complain about UTI symptoms, itching and burning in [place] area. Skin also red eternally. Will obtain UA with reflex and also diflucan x1 for possible yeast infection
[2016-08-27 11:30] LABS: Bilirubin,Urine Negative (Negative); Blood,Urine Small (Negative); Clarity,Urine Cloudy (Clear); Color,Urine Yellow (Yellow); Glucose,Urine (UA) Normal (Normal); Ketones,Urine Negative (Negative); Leukocyte Esterase,Urine Small (Negative); Nitrite,Urine Negative (Negative); PH,Urine 7.5 pH Units (5.0-8.0); Protein,Urine Negative (Neg-Trace); Specific Gravity,Urine 1.016 (1.010-1.025); Urobilinogen,Urine Normal (Normal)
[2016-08-27 11:46] LABS: Amorphous Sediment,Urine Few (Few); Squamous Epithelial Cell,Urine Few per lpf (None-Few); WBC,Urine 0-3 per hpf (0-3)
[2016-08-28 00:47] LABS: Basophils # 0.1 K/mcL (0.0-0.2); Basophils % 0.8 %; Eosinophils # 0.4 K/mcL (0.0-0.6); Eosinophils % 3.7 %; Hematocrit 31.1 % (35.3-44.9); Hemoglobin 10.2 g/dL (11.5-15.4); Immature Granulocytes % 2.4 % (0-4); Lymphocytes # 2.1 K/mcL (0.6-4.6); Lymphocytes % 21.1 %; Mean Corpuscular HGB Conc 32.8 g/dL (31.6-35.5); Mean Corpuscular Hemoglobin 28.9 pg (28.0-33.3); Mean Corpuscular Volume 88.1 fL (83.0-100.0); Mean Platelet Volume 8.4 fL (9.4-12.4); Monocytes # 0.6 K/mcL (0.0-1.3); Monocytes % 6.4 %; Neutrophils # 6.5 K/mcL (1.6-8.9); Platelet Count 373 K/mcL (140-400); Red Blood Count 3.53 M/mcL (3.82-4.97); Segmented Neutrophils % 65.6 %
[2016-08-28 01:01] LABS: BUN/Creatinine Ratio 31 (6-26); Blood Urea Nitrogen 25 mg/dL (7-20); Calcium 9.2 mg/dL (8.6-10.8); Carbon Dioxide 26 mEq/L (19-29); Chloride 103 mEq/L (98-109); Glucose 106 mg/dL (70-99); Magnesium 1.7 mg/dL (1.6-2.6); Osmolality,Calculated 287 (280-300); Potassium 3.7 mEq/L (3.5-4.5); Sodium 136 mEq/L (136-145); eGFR For African Americans > 60 (> 60); eGFR For Non-African Americans > 60 (> 60)
--- NOTE | 2016-08-28 02:15 | Internal Medicine Consult Note ---
Date of Encounter: 08/28/16 Time of Encounter: 02:10 - Assessment and Plan (1) Medical clearance for psychiatric admission Current Visit: Yes Status: Acute Assessment and plan: Patient's chronic medical conditions including asthma and hypertension that appear to be under good control at this time. Would recommend continuing her home medications. Laboratory evaluation shows a mild anemia with hemoglobin 10.2 which is likely related to the patient's recent surgery and otherwise laboratory evaluation is normal. EKG rhythm showed a normal sinus rhythm with a normal QT interval. Patient is medically stable for transfer to the inpatient psychiatric unit. (2) Bipolar 1 disorder Current Visit: No Status: Acute Assessment and plan: With depressive features and suicidal ideation. No specific suicidal plan present. History of multiple suicide attempts with drug overdose. Patient has been evaluated by psychiatry and they recommended inpatient psychiatric treatment. Plan is to transfer to inpatient psychiatric unit. Internal Medicine - CN: HPI - Data of Consult Patient: new to practice Consult date: 08/28/16 Requesting Physician: Gerry Resendez MD - Consult Narrative Reason for consult: Medical clearance History of present illness: Ms. Mckeon is a 46 year old female with history of asthma, hypertension, bipolar disorder presented due to a postop hernia. Patient developed a hernia status post hysterectomy performed by [employer]. The patient was then taken back to the OR by gynecology to reduce an incarcerated hernia. The incarcerated hernia containing only omentum was no bowel incarceration. Patient was then monitored by [employer] on the floor postoperatively where the patient had mentioned depression and suicidal ideation. When I talked with the patient and she expressed that she is feeling depressed and has had thoughts of suicide. She reports for previous suicide attempts by drug overdose in the past. At the time of my exam the patient did not have a specific plan for suicide. Patient states that she has not taken her medication in approximately a week. At this time, patient reports occasional shortness of breath that is chronic related to her asthma. She is not having worsening shortness of breath at this time, she also reports a mild chronic cough that is unchanged. She also reports a mild headache. Otherwise she denies fever, chills, vision changes,, chest pain, abdominal pain, nausea, vomiting, diarrhea, lower extremity swelling. Past Med Surg Social Fam HX - Past Medical History Medical history: asthma, GERD, hypertension, other Psychiatric history: anxiety, bipolar, depression, PTSD, schizophrenia, other - Past Surgical History Surgical History: , cholecystectomy - Social History Smoking Status: Never smoker Smokeless Tobacco Status: No Alcohol use: none Drug use: none - Family History Grandfather Living Status: Still Living Hx Family Endocrine Disorder: Yes (DM) Father Living Status: Still Living Hx Family Cardiac Disorders: Yes (HTN) Mother Living Status: Still Living Hx Family Cardiac Disorders: Yes (HTN) Hx Family Respiratory Disorders: No Hx Family Cancer: No Hx Family GI Disorders: No Hx Family Endocrine Disorder: No Hx Family Musculoskeletal Disorders: No Hx Family Neuromuscular Disorders: No Hx Family Neurologic Disorders: No Hx Family HEENT Disorders: No Hx Family Autoimmune Disorders: No Hx Family Reproductive Disorders: No Hx Family Psychosocial Disorders: Yes (Bipolar) Hx Family Medical Disorders: No All systems: reviewed and no additional remarkable complaints except as stated Internal Medicine - CN: Meds Amlodipine Besylate 10 mg PO DAILY 12/10/15 [History] Buspirone HCl [Buspar] 10 mg PO TID #90 tab 03/04/16 [Rx] DULoxetine [Cymbalta] 30 mg PO DAILY #30 capsule.dr 03/04/16 [Rx] Albuterol Sulfate [Albuterol Inhaler] 2 puff IH Q6HR PRN 04/02/16 [History] Fluticasone/Salmeterol [Advair 250-50 Diskus] 1 puff IH BID 04/02/16 [History] Losartan [Cozaar] 25 mg PO DAILY 04/02/16 [History] Ipratropium/Albuterol Neb [Duoneb] 3 ml IH Q4HR PRN #30 vial.neb 07/30/16 [Rx] Quetiapine Fumarate [SEROquel] 150 mg PO HS 08/14/16 [History] Ibuprofen [Motrin] 600 mg PO Q6HR PRN #60 tab 08/15/16 [Rx] OxyCODONE/APAP 5/325 [Percocet 5/325 MG] 1 each PO Q4HR PRN #60 tablet 08/16/16 [Rx] Allergies codeine Allergy (Verified 04/07/16 10:31) Unresponsive risperidone [From Risperdal] Allergy (Verified 04/07/16 10:31) Anaphylaxis Internal Medicine - CN: Exam - Constitutional Vitals: Temp Pulse Resp BP Pulse Ox 98.2 F 77 14 133/98 96 08/28/16 00:04 08/28/16 00:04 08/28/16 00:04 08/28/16 00:04 08/28/16 00:04 General appearance IM: Present: A&O X 3, no acute distress - Head Head exam: Present: atraumatic, normal inspection, normocephalic - Eye Eye exam: Present: EOMI, PERRL - ENT ENT exam: Present: mucous membranes moist - Neck Neck exam general surgery: Present: full ROM. Absent: tenderness - Respiratory Respiratory exam: Present: CTAB. Absent: rales, rhonchi, wheezes - Cardiovascular Cardiovascular exam IM: Present: RRR. Absent: gallop, rubs, systolic murmur - GI/Abdominal GI/Abdominal exam IM: Present: normal bowel sounds, soft. Absent: distended, tenderness - Extremities Exam Extremities exam IM: Present: warm. Absent: pedal edema, tenderness - Neurological Exam Neurological exam: Present: alert, CN II-XII intact, oriented X3, no focal deficits - Psychiatric Psychiatric exam: Present: depressed, normal affect, normal mood, suicidal ideation. Absent: homicidal ideation, manic - Expanded Psychiatric Exam Focused psych exam: Present: flight of ideas, restlessness - Skin Skin exam IM: Present: dry, intact, warm Internal Medicine - CN: Reslt - Labs CBC & Chem 7: 08/27/16 23:59 08/27/16 23:59 Labs: Short CBC 08/27/16 Range/Units 23:59 WBC 10.0 (4.3-11.1) K/mcL Hgb 10.2 L (11.5-15.4) g/dL Hct 31.1 L (35.3-44.9) % Plt Count 373 (140-400) K/mcL Neutrophils # 6.5 (1.6-8.9) K/mcL BMP 08/27/16 23:59 Sodium 136 Potassium 3.7 Chloride 103 Carbon Dioxide 26 BUN 25 H Creatinine 0.81 Glucose 106 H Calcium 9.2 Urine 08/27/16 Range/Units 11:20 Urine Color Yellow (Yellow) Urine Clarity Cloudy A (Clear) Urine pH 7.5 (5.0-8.0) pH Units Ur Specific [address] 1.016 (1.010-1.025) Urine Protein Negative (Neg-Trace) mg/dL Urine Glucose (UA) Normal (Normal) mg/dL - ABG Interpretation ABG results: PT/INR, D-dimer PT 13.0 Seconds (9.4-12.1) H 08/23/16 16:41 - EKG Data -: EKG Interpreted by Myself EKG shows normal: sinus rhythm Consult Discharge Plan - Plan Referrals: Yoni Mcneal MD [Primary Care Provider] -
[2016-08-28] MEDS ORDERED: Ampicillin/Sulbactam 3,000 MG in 0.9 % Sodium Chloride Mini Bag 100 ML IVPB SCH (05:00)
[2016-08-28] MEDS: *HR* OxyCODONE/APAP 5/325 TABLET PO PRN ×2 (08:58→14:56)
--- NOTE | 2016-08-28 11:41 | Discharge Summary ---
Date of Encounter: 08/28/16 Time of Encounter: 11:39 - Discharge Diagnosis (1) Bipolar 1 disorder Priority: Primary Status: Acute (2) UTI (urinary tract infection) Priority: Primary Status: Chronic Qualifiers: Urinary tract infection type: site unspecified Hematuria presence: without hematuria Qualified Code(s): N39.0 - Urinary tract infection, site not specified - Discharge Medications Prescriptions: OxyCODONE/APAP 5/325 [Percocet 5/325 MG] 1 each PO Q4HR PRN #30 tablet PRN Reason: Severe Pain Nitrofurantoin (BID) [Macrobid] 100 mg PO BIDWM 4 Days Home Medications: Amlodipine Besylate 10 mg PO DAILY 12/10/15 [History] Buspirone HCl [Buspar] 10 mg PO TID #90 tab 03/04/16 [Rx] DULoxetine [Cymbalta] 30 mg PO DAILY #30 capsule. 03/04/16 [Rx] Albuterol Sulfate [Albuterol Inhaler] 2 puff IH Q6HR PRN 04/02/16 [History] Fluticasone/Salmeterol [Advair 250-50 Diskus] 1 puff IH BID 04/02/16 [History] Losartan [Cozaar] 25 mg PO DAILY 04/02/16 [History] Ipratropium/Albuterol Neb [Duoneb] 3 ml IH Q4HR PRN #30 vial.neb 07/30/16 [Rx] Quetiapine Fumarate [Seroquel] 150 mg PO HS 08/14/16 [History] Ibuprofen [Motrin] 600 mg PO Q6HR PRN #60 tab 08/15/16 [Rx] Nitrofurantoin (BID) [Macrobid] 100 mg PO BIDWM 4 Days 08/28/16 [Rx] OxyCODONE/APAP 5/325 [Percocet 5/325 MG] 1 each PO Q4HR PRN #30 tablet 08/28/16 [Rx] Allergies/Adverse Reactions: Allergies codeine Allergy (Verified 04/07/16 10:31) Unresponsive risperidone [From Risperdal] Allergy (Verified 04/07/16 10:31) Anaphylaxis Procedures/tests Complete & Pending: Procedures Performed prior 72 hours Category Date Time Status EKG [ECG 12 lead ECG] [ECG] Routine Y 08/27/16 23:26 Ordered Date of admission: 08/24/16 13:40 Primary care physician: Yoni Mcneal MD Consults: 08/24/16 14:57 Consult to Psychiatry [CONS] Routine Consulting Provider: Dian Miranda Reason for Consult: suicidal Time Notified: 14:57 Call Completed: Yes 08/24/16 21:29 Consult to Pastoral Services [CONS] Routine Comment: 08/27/16 21:08 Consult to Hospitalist [CONS] Stat Consulting Provider: Hospitalist Emilie Reason for Consult: Pt needs medically cleared for admission to . Pt has been surgical cleared per Dr Resendez, But has not been seen by medical doctor since August 25 Time Notified: 21:10 Call Completed: Yes Discharging clinician: Cain Foley Anticipated date of discharge: 08/28/16 - Patient Status Disposition: Home, Self-Care Condition: Good Overall status at discharge: patient is progressing back to baseline - Discharge Instructions Follow Up With: Yoni Mcneal MD [Primary Care Provider] - - Diet and Activity Activity: as per physical therapy Diet: advance to your usual diet Interval History: Ms. Mckeon is a 46 year old female with history of asthma, hypertension, bipolar disorder presented due to a postop hernia. Patient developed a hernia status post hysterectomy performed by LOOM MECHANIC. The patient was then taken back to the OR by gynecology to reduce an incarcerated hernia. The incarcerated hernia containing only omentum with no bowel incarceration. Patient was then monitored by LOOM MECHANIC on the floor postoperatively where the patient had mentioned depression and suicidal ideation. When I talked with the patient and she expressed that she is feeling depressed and has had thoughts of suicide. She reports for previous suicide attempts by drug overdose in the past. At the time of my exam the patient did not have a specific plan for suicide. Patient states that she has not taken her medication in approximately a week. At this time, patient reports occasional shortness of breath that is chronic related to her asthma. She is not having worsening shortness of breath at this time, she also reports a mild chronic cough that is unchanged. She also reports a mild headache. Otherwise she denies fever, chills, vision changes,, chest pain, abdominal pain, nausea, vomiting, diarrhea, lower extremity swelling. labs s/o UTI and tamir urine cx is positive for E. fecalis. she was strated initially on UNasyn, will de- escalate to macrobid, she has no fever or leukocytosis at this time. Given suicidal ideation, will pink slip the patient and will trasnfer to 1A for further management. bhavesh is medically stable for transfer at this time. Hospital course: Ms. Mckeon is a 46 year old female Time spent discussing smoking cessation with patient: more than 10 minutes - Time Spent with Patient Total time spent providing and/or coordinating discharge services: Greater than 30 minutes - Constitutional Vitals: Temp Pulse Resp BP Pulse Ox 97.7 F 75 16 137/104 95 08/28/16 11:00 08/28/16 11:00 08/28/16 11:00 08/28/16 11:00 08/28/16 11:00 General appearance: Present: A&O X 3, no acute distress Exam: - Head Head exam: Present: atraumatic, normal inspection, normocephalic - Eye Eye exam: Present: EOMI, PERRL - ENT ENT exam: Present: mucous membranes moist - Neck Neck exam general surgery: Present: full ROM. Absent: tenderness - Respiratory Respiratory exam: Present: CTAB. Absent: rales, rhonchi, wheezes - Cardiovascular Cardiovascular exam IM: Present: RRR. Absent: gallop, rubs, systolic murmur - GI/Abdominal GI/Abdominal exam IM: Present: normal bowel sounds, soft. Absent: distended, tenderness - Extremities Exam Extremities exam IM: Present: warm. Absent: pedal edema, tenderness - Neurological Exam Neurological exam: Present: alert, CN II-XII intact, oriented X3, no focal deficits - Psychiatric Psychiatric exam: Present: depressed, normal affect, normal mood, suicidal ideation. Absent: homicidal ideation, manic - Expanded Psychiatric Exam Focused psych exam: Present: flight of ideas, restlessness - Skin Skin exam IM: Present: dry, intact, warm
[2016-08-28 15:16] VITALS: BP 169/113
[2016-08-28] MEDS ORDERED: Nitrofurantoin (BID) 100 MG CAPSULE PO SCH (17:00)
--- NOTE | 2016-08-28 20:21 | Electrocardiograph Report ---
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
[2016-08-29] MEDS ORDERED: amLODIPine 5 MG TABLET PO SCH (09:00)
== END 2016-08-28 16:24 | disposition home or self-care (01) | DRG 354 ==
LOC: 1NENUOBS 16:01 → EMEROO 16:01 → 3ANU 19:00
PROVIDERS: ADMIT Student in an Organized Health Care Education/Training Program; ATTEND Student in an Organized Health Care Education/Training Program

== ENCOUNTER 2016-08-28 16:35 | Inpatient (IN) ==
[2016-08-28] MEDS ORDERED: *HR* LORazepam 1 MG TABLET PO PRN (16:58)
[2016-08-28] MEDS ORDERED: Haloperidol Lactate 5 MG/ML VIAL IM PRN (16:58)
[2016-08-28] MEDS ORDERED: *HR* LORazepam 2 MG/ML VIAL IM PRN (16:58)
[2016-08-28] MEDS ORDERED: traZODone 50 MG TABLET PO PRN (16:58)
[2016-08-28] MEDS ORDERED: Mag Hydrox/Al Hydrox/Simeth 30 ML UDC PO PRN (16:58)
[2016-08-28] MEDS ORDERED: Ibuprofen 400 MG TABLET PO PRN (16:58)
[2016-08-28] MEDS ORDERED: Ibuprofen 600 MG TABLET PO PRN (18:28)
[2016-08-28] MEDS ORDERED: Ipratropium/Albuterol Neb 3 ML IH PRN (20:00)
[2016-08-28] MEDS: *HR* OxyCODONE/APAP 5/325 TABLET PO PRN (21:01)
[2016-08-28] MEDS: Budesonide/Formoterol 80/4.5 MDI IH SCH (22:43)
[2016-08-28] MEDS: hydrOXYzine pamoate 25 MG CAPSULE PO PRN (22:43)
[2016-08-29] MEDS: *HR* OxyCODONE/APAP 5/325 TABLET PO PRN ×2 (07:08→12:12)
[2016-08-29] MEDS: MOM Conc 10 ML UD.LIQ PO PRN (07:08)
[2016-08-29] MEDS: amLODIPine 5 MG TABLET PO SCH (08:15)
[2016-08-29] MEDS: Nitrofurantoin (BID) 100 MG CAPSULE PO SCH ×2 (08:15→16:47)
[2016-08-29] MEDS: Budesonide/Formoterol 80/4.5 MDI IH SCH ×2 (09:50→23:30)
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
[2016-08-29] MEDS: Divalproex (24 HR) 250 MG TABLET PO SCH (20:21)
[2016-08-30] MEDS: Nitrofurantoin (BID) 100 MG CAPSULE PO SCH ×2 (08:41→17:08)
[2016-08-30] MEDS: amLODIPine 5 MG TABLET PO SCH (08:43)
[2016-08-30] MEDS: MOM Conc 10 ML UD.LIQ PO PRN (08:43)
[2016-08-30] MEDS: Budesonide/Formoterol 80/4.5 MDI IH SCH ×2 (10:00→21:07)
[2016-08-30] MEDS: hydrOXYzine pamoate 25 MG CAPSULE PO PRN (10:49)
--- NOTE | 2016-08-30 12:20 | Psychiatry Progress Note ---
Date of Encounter: 08/30/16 Time of Encounter: 12:00 Subjective Interval history: Patient seen for follow-up. She reported improved sleep and less anxiety. She tolerated medication changes without any side effects. She denies suicidal ideation. She is worried about discharge plans and her relationship with her mother. She participated in activities. Review of Systems Psychiatric: Reports: depression, suicidal ideation, mood swings Objective: Exam Patient orientation: Yes Person, Yes Time, Yes Place Level of alertness: Alert Patient appearance: Appropriate, Well Groomed Behavior: calm, cooperative, anxious Psychomotor activity: Normal Eye contact: Maintains Eye Contact Mood description: Anxious Affect description: congruent with mood, constricted, anxious Speech pattern: Normal rate, Normal rhythm, Normal tone Speech volume: Normal Thought process: Linear, Goal Oriented Thought content: No Suicidal ideation, No Homicidal ideation, No Overt delusions Perceptual disturbances: No Auditory hallucinations, No Visual hallucinations Judgment: Fair Insight: Partial Results - Vital Signs Vital Signs: Temp Pulse Resp BP 96.9 F L 79 16 109/76 08/30/16 09:00 08/30/16 09:00 08/30/16 09:00 08/30/16 09:00 Assessment and Plan (1) Bipolar disorder current episode depressed Current visit: Yes Status: Acute Plan: Continue hospitalization, Close observation, Suicide Precautions per unit protocol, Encourage participation in unit milieu, Group Therapy, Monitor sleep, Monitor appetite Risks, benefits, side effects, alternatives discussed w/pt: Yes Patient agreeable to treatment: Yes Qualifiers: Qualified Code(s): F31.4 - Bipolar disorder, current episode depressed, severe, without psychotic features Consult Discharge Plan - Plan Referrals: [facility] Dialysis Nurse Jessica [Outside] - 10/29/16 12:30 pm (The above appointment is with Stephanie Hartley, psychiatric prescriber. This is the first available appointment. You may contact the office regularly to check for cancellations that would allow you to be seen sooner.)
[2016-08-30] MEDS: *HR* OxyCODONE/APAP 5/325 TABLET PO PRN ×2 (17:09→21:02)
--- NOTE | 2016-08-30 19:33 | OB/GYN Consult Note ---
Date of Encounter: 08/30/16 Time of Encounter: 19:00 Assessment and Plan (1) Open wound anterior abdominal wall Current Visit: Yes Status: Acute Steri-Strips used to reapproximate the incision pressure dressing was applied. Patient will follow up in the office after discharge. Qualifiers: Encounter type: initial encounter Qualified Code(s): S31.109A - Unspecified open wound of abdominal wall, unspecified quadrant without penetration into peritoneal cavity, initial encounter (2) History of robot-assisted laparoscopic hysterectomy Current Visit: Yes Status: Resolved (3) Status post exploratory laparotomy Current Visit: Yes Status: Resolved History of Present Illness Consult date: 08/30/16 Reason for consult: other (wound seperation) History of present illness: Patient is a 46-year-old female status post robotic hysterectomy on 08/14 with a unscheduled exploratory surgery on August 24 due to incisional hernia and has recently been admitted to [facility] due to suicidal ideations. While on the unit patient started to have bleeding from her incision and has opened up. Patient states that she been constipated went to the bathroom to bear down and all of a sudden noticed blood on her clothing. Patient states she is having no pain around this area. According to the nursing staff patient is doing a lot of moving around is not taking it easy and does not have her abdominal binder with her. We have asked to come and evaluate incision to determine if it needs to be reapproximated. Patient states she does not know if she has any history of MRSA has never been tested for it Past Med Surg Social Fam HX - Past Medical History Medical history: asthma, GERD, hypertension, other Psychiatric history: bipolar, depression, PTSD, prior suicide attempt, previous psychiatric hospitalization - Past Surgical History Surgical History: , cholecystectomy, hysterectomy, other (Exploratory laparotomy repair of incisional hernia) - Social History Smoking Status: Never smoker Smokeless Tobacco Status: No Alcohol use: none Drug use: none - Family History Grandfather Living Status: Still Living Hx Family Endocrine Disorder: Yes (DM) Father Living Status: Still Living Hx Family Cardiac Disorders: Yes (HTN) Mother Living Status: Still Living Hx Family Cardiac Disorders: Yes (HTN) Hx Family Respiratory Disorders: No Hx Family Cancer: No Hx Family GI Disorders: No Hx Family Endocrine Disorder: No Hx Family Neuromuscular Disorders: No Hx Family Neurologic Disorders: No Hx Family HEENT Disorders: No Hx Family Autoimmune Disorders: No - Additional Family History Additional family history: Family history noncontributory at this time Medications and Allergies Amlodipine Besylate 10 mg PO DAILY 12/10/15 [History] Buspirone HCl [Buspar] 10 mg PO TID #90 tab 03/04/16 [Rx] DULoxetine [Cymbalta] 30 mg PO DAILY #30 capsule. 03/04/16 [Rx] Albuterol Sulfate [Albuterol Inhaler] 2 puff IH Q6HR PRN 04/02/16 [History] Fluticasone/Salmeterol [Advair 250-50 Diskus] 1 puff IH BID 04/02/16 [History] Losartan [Cozaar] 25 mg PO DAILY 04/02/16 [History] Ipratropium/Albuterol Neb [Duoneb] 3 ml IH Q4HR PRN #30 vial.neb 07/30/16 [Rx] Quetiapine Fumarate [Seroquel] 150 mg PO HS 08/14/16 [History] Ibuprofen [Motrin] 600 mg PO Q6HR PRN #60 tab 08/15/16 [Rx] Nitrofurantoin (BID) [Macrobid] 100 mg PO BIDWM 4 Days 08/28/16 [Rx] OxyCODONE/APAP 5/325 [Percocet 5/325 MG] 1 each PO Q4HR PRN #30 tablet 08/28/16 [Rx] Allergies codeine Allergy (Verified 04/07/16 10:31) Unresponsive risperidone [From Risperdal] Allergy (Verified 04/07/16 10:31) Anaphylaxis Review of Systems All Systems: reviewed and no additional remarkable complaints except as stated Exam - Vital Signs Vital signs: Initial Vital Signs Temp Pulse Resp BP 98.4 F 81 18 142/94 08/28/16 21:00 08/28/16 21:00 08/28/16 21:00 08/28/16 21:00 - Constitutional Constitutional: well developed, well nourished, no acute distress, obese - Neck Neck exam: full ROM - Lungs Respiratory exam: CTAB - Comments Comments: Patient's incision in the right upper quadrant is opened up approximately 5-6 cm just skin edge no active bleeding noted no drainage noted. Surrounding tissue is erythematous, not sure if this is related to previous healing or possible cellulitis. No cultures obtained at this time nothing to culture Mastisol was placed around the skin edges and Steri-Strips were then used to reapproximate the incision and a pressure dressing was applied. Results All other labs normal. Consult Discharge Plan - Plan Referrals: [facility] Baggage Agent Jessica [Outside] - 10/29/16 12:30 pm (The above appointment is with Stephanie Hartley, psychiatric prescriber. This is the first available appointment. You may contact the office regularly to check for cancellations that would allow you to be seen sooner.)
[2016-08-30] MEDS: Divalproex (24 HR) 250 MG TABLET PO SCH (21:00)
[2016-08-30] MEDS: cephALEXin 500 MG CAPSULE PO SCH (21:01)
[2016-08-31] MEDS: amLODIPine 5 MG TABLET PO SCH (08:12)
[2016-08-31] MEDS: cephALEXin 500 MG CAPSULE PO SCH ×4 (08:12→21:02)
[2016-08-31] MEDS: Nitrofurantoin (BID) 100 MG CAPSULE PO SCH ×2 (08:13→17:05)
[2016-08-31] MEDS: MOM Conc 10 ML UD.LIQ PO PRN (09:29)
[2016-08-31] MEDS: Budesonide/Formoterol 80/4.5 MDI IH SCH ×2 (09:30→21:53)
[2016-08-31] MEDS: *HR* OxyCODONE/APAP 5/325 TABLET PO PRN ×2 (11:39→21:02)
--- NOTE | 2016-08-31 13:30 | Psychiatry Progress Note ---
Date of Encounter: 08/31/16 Time of Encounter: 13:27 Subjective Interval history: Patient is seen in follow-up. She denies any problem with sleep or appetite. She denies suicidal ideation and she looks forward to discharge. SPECIAL DELIVERY WORKER was consulted to evaluate her wound , we appreciated their recommendation. Review of Systems Psychiatric: Reports: depression, suicidal ideation, mood swings Objective: Exam Patient orientation: Yes Person, Yes Time, Yes Place Level of alertness: Alert Patient appearance: Appropriate, Well Groomed Behavior: calm, cooperative Psychomotor activity: Normal Eye contact: Maintains Eye Contact Mood description: Euthymic/stable Affect description: congruent with mood, constricted Speech pattern: Normal rate, Normal rhythm, Normal tone Speech volume: Normal Thought process: Linear, Goal Oriented Thought content: No Suicidal ideation, No Homicidal ideation, No Overt delusions Perceptual disturbances: No Auditory hallucinations, No Visual hallucinations Judgment: Fair Insight: Partial Results - Vital Signs Vital Signs: Temp Pulse Resp BP 97.8 F 76 16 121/76 08/31/16 07:58 08/31/16 07:58 08/31/16 07:58 08/31/16 07:58 Assessment and Plan (1) Bipolar disorder current episode depressed Current visit: Yes Status: Acute Plan: Continue hospitalization, Close observation, Suicide Precautions per unit protocol, Encourage participation in unit milieu, Group Therapy, Monitor sleep, Monitor appetite Risks, benefits, side effects, alternatives discussed w/pt: Yes Patient agreeable to treatment: Yes Qualifiers: Qualified Code(s): F31.4 - Bipolar disorder, current episode depressed, severe, without psychotic features Consult Discharge Plan - Plan Referrals: [facility] Gibran Lopez [Outside] - 10/29/16 12:30 pm (The above appointment is with Stephanie Hartley, psychiatric prescriber. This is the first available appointment. You may contact the office regularly to check for cancellations that would allow you to be seen sooner.)
[2016-08-31] MEDS: hydrOXYzine pamoate 25 MG CAPSULE PO PRN (18:02)
[2016-08-31] MEDS: Divalproex (24 HR) 250 MG TABLET PO SCH (21:02)
[2016-09-01] MEDS: *HR* OxyCODONE/APAP 5/325 TABLET PO PRN ×2 (05:16→12:40)
[2016-09-01] MEDS: amLODIPine 5 MG TABLET PO SCH (08:03)
[2016-09-01] MEDS: cephALEXin 500 MG CAPSULE PO SCH ×2 (08:03→12:28)
[2016-09-01] MEDS: Nitrofurantoin (BID) 100 MG CAPSULE PO SCH (08:04)
[2016-09-01] MEDS: Budesonide/Formoterol 80/4.5 MDI IH SCH (09:12)
[2016-09-01 09:29] VITALS: BP 115/79
--- NOTE | 2016-09-01 12:24 | Physician Discharge Referral ---
ExtendedCare Referral Info Transfer To: [facility] - Diagnosis (1) Bipolar disorder current episode depressed Status: Acute - Transfer Medications Home Medications: Amlodipine Besylate 10 mg PO DAILY 12/10/15 [History] Buspirone HCl [Buspar] 10 mg PO TID #90 tab 03/04/16 [Rx] DULoxetine [Cymbalta] 30 mg PO DAILY #30 capsule. 03/04/16 [Rx] Albuterol Sulfate [Albuterol Inhaler] 2 puff IH Q6HR PRN 04/02/16 [History] Fluticasone/Salmeterol [Advair 250-50 Diskus] 1 puff IH BID 04/02/16 [History] Losartan [Cozaar] 25 mg PO DAILY 04/02/16 [History] Ipratropium/Albuterol Neb [Duoneb] 3 ml IH Q4HR PRN #30 vial.neb 07/30/16 [Rx] Quetiapine Fumarate [Seroquel] 150 mg PO HS 08/14/16 [History] Ibuprofen [Motrin] 600 mg PO Q6HR PRN #60 tab 08/15/16 [Rx] Nitrofurantoin (BID) [Macrobid] 100 mg PO BIDWM 4 Days 08/28/16 [Rx] OxyCODONE/APAP 5/325 [Percocet 5/325 MG] 1 each PO Q4HR PRN #30 tablet 08/28/16 [Rx] Allergies/Adverse Reactions: Allergies codeine Allergy (Verified 04/07/16 10:31) Unresponsive risperidone [From Risperdal] Allergy (Verified 04/07/16 10:31) Anaphylaxis - Respiratory Orders Smoking Cessation: Smoking cessation has been advised. For more information, call the [place] Tobacco Quit Line at 3-106-DDIM-NOW. CERTIFICATION: I certify that the transfer of the above named patient to an Extended Care Facility is necessary for the continuing treatment of the diagnosis listed. The above information is true and accurate reflection of patient's current condition. Confidential - Redisclosure prohibited without a patient's written consent.
--- NOTE | 2016-09-01 12:57 | Discharge Summary ---
Date of Encounter: 09/01/16 Time of Encounter: 11:00 Diagnosis - Discharge Diagnosis (1) Bipolar disorder current episode depressed Status: Acute Qualifiers: Current episode severity: severe Psychotic features: without psychotic features Qualified Code(s): F31.4 - Bipolar disorder, current episode depressed, severe, without psychotic features Medications - Discharge Medications Prescriptions: Divalproex (24 HR) [Depakote ER (24 HR)] 250 mg PO HS #30 tab.er.24h DULoxetine [Cymbalta] 30 mg PO BID #60 capsule. Amlodipine Besylate 10 mg PO DAILY 12/10/15 [History] Buspirone HCl [Buspar] 10 mg PO TID #90 tab 03/04/16 [Rx] Albuterol Sulfate [Albuterol Inhaler] 2 puff IH Q6HR PRN 04/02/16 [History] Fluticasone/Salmeterol [Advair 250-50 Diskus] 1 puff IH BID 04/02/16 [History] Losartan [Cozaar] 25 mg PO DAILY 04/02/16 [History] Ipratropium/Albuterol Neb [Duoneb] 3 ml IH Q4HR PRN #30 vial.neb 07/30/16 [Rx] Quetiapine Fumarate [Seroquel] 150 mg PO HS 08/14/16 [History] Ibuprofen [Motrin] 600 mg PO Q6HR PRN #60 tab 08/15/16 [Rx] Nitrofurantoin (BID) [Macrobid] 100 mg PO BIDWM 4 Days 08/28/16 [Rx] OxyCODONE/APAP 5/325 [Percocet 5/325 MG] 1 each PO Q4HR PRN #30 tablet 08/28/16 [Rx] DULoxetine [Cymbalta] 30 mg PO BID #60 capsule. 09/01/16 [Rx] Divalproex (24 HR) [Depakote ER (24 HR)] 250 mg PO HS #30 tab.er.24h 09/01/16 [ Rx] Allergies codeine Allergy (Verified 04/07/16 10:31) Unresponsive risperidone [From Risperdal] Allergy (Verified 04/07/16 10:31) Anaphylaxis Provider Date of admission: 08/28/16 16:36 Primary care physician: PCP NO Consults: 08/30/16 19:58 Consult to Physician [CONS] Stat Consulting Provider: Yousuf Monahan Reason for Consult: open wound Call Completed: Yes Discharging clinician: Yoel Cary Assessment and Plan - Patient/Caregiver Discharge Instructions Activity: resume usual activities as tolerated Diet: regular diet - Follow up Plan Follow up with: Tucker Varner [facility] [employer] Jessica [Outside] - 10/29/16 12:30 pm (The above appointment is with Stephanie Hartley, psychiatric prescriber. This is the first available appointment. You may contact the office regularly to check for cancellations that would allow you to be seen sooner.) Functional capacity at discharge: independent ambulation Overall status at discharge: Stable Disposition: Transfer Inpatient Rehab Fac Hospital Course Hospital course: Ms. Mckeon is a 46 year old female admitted for suicidal ideation depression. For details admission please see H&P On the units patient medication were reviewed, Cymbalta was increased to 30 mg twice a day and we added Depakote 250 mg at bedtime as a mood stabilizer. Patient responded well to medication changes, she denied any side effects. She attended activities and groups. She denied suicidal ideation. Her discharge plans for extended care facility was completed by social services counselor. On discharge patient was medically stable and nonsuicidal and future oriented. - Time Spent with Patient Total time spent providing and/or coordinating discharge services: Greater than 30 minutes Quality - Multiple Antipsychotics Patient discharged on 2 or more antipsychotic medications: No Procedures - Procedures Procedures: Medication Management, Crisis Stabilization, Supportive Therapy, Group Therapy, Psychoeducational Therapy Mental Status Exam - Mental Status Exam Patient orientation: Yes Person, Yes Time, Yes Place Level of alertness: Alert Patient appearance: Appropriate, Well Groomed Behavior: calm, cooperative Psychomotor activity: Normal Eye contact: Maintains Eye Contact Mood description: Euthymic/stable Affect description: congruent with mood, full range Speech pattern: Normal rate, Normal rhythm, Normal tone Speech Volume: Normal Thought process: Linear, Goal Oriented Thought Content: No Suicidal ideation, No Homicidal ideation, No Overt delusions Perceptual Disturbances: No Auditory hallucinations, No Visual hallucinations Judgment: Limited Insight: Partial
== END 2016-09-01 14:00 | DRG 885 ==
LOC: 1ANU 16:36
PROVIDERS: ADMIT Psychiatry & Neurology Psychiatry; ATTEND Psychiatry & Neurology Psychiatry

== ENCOUNTER 2017-04-19 11:40 | Inpatient (IN) ==
--- NOTE | 2017-04-19 12:24 | Emergency Department Note ---
Disposition Clinical Impression: Suicidal ideations Disposition: Admitted As Inpatient Condition: Fair Psych HPI - General Chief Complaint: ED Psychiatric Symptoms Stated Complaint: SI Time Seen by Provider: 04/19/17 12:17 Source: patient, family Mode of arrival: ambulatory Limitations: no limitations Nursing Notes Reviewed: Yes Vital Signs Reviewed: Yes - History of Present Illness HPI Narrative: 46-year-old female history of depression and suicide ideation and attempts in the past presents for evaluation of wanting to kill herself. Patient's thought of killing himself with taking pills. Patient does have a prior history of taking pills. Patient states that she took 575 mg of Seroquel last night around 11:00 and did not care if she woke up in the morning. Patient states that she is depressed. Patient denies any homicidal ideation. Denies any drugs or alcohol. Patient reports a cough and nausea but review systems otherwise unremarkable. - Related Data Home Medications Medication Instructions Recorded Confirmed Amlodipine Besylate 10 mg PO DAILY 12/10/15 04/19/17 Albuterol Sulfate [Albuterol 2 puff IH Q6HR PRN 04/02/16 04/19/17 Inhaler] Buspirone HCl [Buspar] 30 mg PO TID 01/08/17 04/19/17 Divalproex (24 HR) [Depakote ER 1,000 mg PO HS 01/08/17 04/19/17 (24 HR)] Divalproex (24 HR) [Depakote ER 500 mg PO QAM 01/08/17 04/19/17 (24 HR)] Fluticasone Propionate Nasal 50 mcg NS BID PRN 01/08/17 04/19/17 [Flonase] Gabapentin [Neurontin] 600 mg PO TID 01/08/17 04/19/17 Losartan Potassium [Cozaar] 50 mg PO DAILY 01/08/17 04/19/17 Montelukast [Singulair] 10 mg PO QPM 01/08/17 04/19/17 Quetiapine Fumarate [Seroquel] 400 mg PO HS 01/08/17 04/19/17 cloNIDine HCl [CloNIDine HCl] 0.1 mg PO HS 01/08/17 04/19/17 traZODone [TraZODone] 50 mg PO HS PRN 01/08/17 04/19/17 Fluticasone/Salmeterol [Advair Hfa 2 puff IH BID 04/19/17 04/19/17 115-21 Mcg Inhaler] Omeprazole [PriLOSEC] 20 mg PO DAILY 04/19/17 04/19/17 Previous Rx's Medication Instructions Recorded Ipratropium/Albuterol Neb [Duoneb] 3 ml IH Q6H PRN #30 vial.neb 02/12/17 Allergies Allergy/AdvReac Type Severity Reaction Status Date / Time codeine Allergy Unresponsiv Verified 04/19/17 11:43 e risperidone [From Risperdal] Allergy Anaphylaxis Verified 04/19/17 11:43 All systems ED: reviewed and negative except as stated. Constitutional: Reports: as per HPI. Denies: fever Eyes: Reports: as per HPI ENT ED: Reports: as per HPI Cardiovascular: Reports: as per HPI. Denies: chest pain Respiratory: Reports: as per HPI Gastrointestinal: Reports: as per HPI Genitourinary: Reports: as per HPI Musculoskeletal: Reports: as per HPI Integumentary: Reports: as per HPI Neurological: Reports: as per HPI Psychiatric: Reports: as per HPI Endocrine: Reports: as per HPI Hematological/Lymphatic: Reports: as per HPI Past Medical History - Past Medical History Attestation: Yes The following information was validated with the patient. 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: dysfunctional uterine bleed, uterine fibroids - Social History Smoking Status: Never smoker Smokeless Tobacco Status: No Alcohol use: Reports: none Drug use: Reports: none Physical Exam - General Limitations: no limitations General appearance: alert, in no apparent distress - Head Head exam: atraumatic, normocephalic, normal inspection - Eye Eye exam: Present: normal appearance, PERRL, EOMI - ENT ENT exam: normal exam, normal oropharynx, mucous membranes moist - Neck Neck exam: Present: normal inspection, full ROM, trachea midline - Chest Chest inspection: Present: normal inspection, symmetric chest wall rise - Respiratory Respiratory exam: Present: normal lung sounds bilaterally - Cardiovascular Cardiovascular exam: Present: regular rate, normal rhythm, normal heart sounds - Abdominal Exam Abdominal exam: Present: soft, Non-Tender. Absent: tenderness, distention, guarding, rebound, rigidity - Extremities Exam Extremities exam: Present: normal inspection, full ROM. Absent: tenderness, pedal edema - Back Exam Back exam: Present: normal inspection, full ROM. Absent: tenderness - Neurological Exam Neurological exam: Present: alert, oriented X3 - Skin Skin exam: Present: warm, dry, intact, normal color Course Course Narrative: Patient seen and examined. Patient with medically screening evaluation evaluated by psychiatry. - Consultations Consultation #1: Patient is medically clear for 1A. Time: 13:58 Vital Signs Temperature 98.1 F 04/19/17 11:40 Pulse Rate 92 04/19/17 11:40 Respiratory Rate 18 04/19/17 11:40 Blood Pressure 139/84 04/19/17 11:40 O2 Sat by Pulse Oximetry 97 04/19/17 11:40 Temperature 98.1 F 04/19/17 11:40 Pulse Rate 92 04/19/17 11:40 Respiratory Rate 18 04/19/17 11:40 Blood Pressure 139/84 04/19/17 11:40 O2 Sat by Pulse Oximetry 97 04/19/17 11:40 Oxygen Delivery Oxygen Delivery Room Air Psych - Lab Data Result diagrams: 04/19/17 12:29 04/19/17 12:29 Lab Results 04/19/17 04/19/17 04/19/17 Range/Units 12:10 12:10 12:26 WBC (4.3-11.1) K/mcL RBC (3.82-4.97) M/mcL Hgb (11.5-15.4) g/dL Hct (35.3-44.9) % MCV (83.0-100.0) fL MCH (28.0-33.3) pg MCHC (31.6-35.5) g/dL RDW (11.5-14.5) % Plt Count (140-400) K/mcL MPV (9.4-12.4) fL Immature Gran % (0-4) % Seg Neutrophils % % Lymphocytes % % Monocytes % % Eosinophils % % Basophils % % Neutrophils # (1.6-8.9) K/mcL Lymphocytes # (0.6-4.6) K/mcL Monocytes # (0.0-1.3) K/mcL Eosinophils # (0.0-0.6) K/mcL Basophils # (0.0-0.2) K/mcL Sodium (136-145) mEq/L Potassium (3.5-5.1) mEq/L Chloride (98-107) mEq/L Carbon Dioxide (23-29) mEq/L BUN (6-20) mg/dL Creatinine (0.60-1.20) mg/dL Est GFR ( Amer) (> 60) Est GFR (Non-Af Amer) (> 60) BUN/Creatinine Ratio (6-26) Glucose (70-105) mg/dL Calculated Osmolality (280-300) Calcium (8.6-10.3) mg/dL Urine Color Yellow (Yellow) Urine Clarity Cloudy A (Clear) Urine pH 6.5 (5.0-8.0) pH Units Ur Specific [place] 1.018 (1.010-1.025) Urine Protein Negative (Neg-Trace) mg/dL Urine Glucose (UA) Normal (Normal) mg/dL Urine Ketones Negative (Negative) mg/dL Urine Blood Small H (Negative) Urine Nitrite Negative (Negative) Urine Bilirubin Large H (Negative) Urine Urobilinogen Normal (Normal) mg/dL Ur Leukocyte Esterase Small H (Negative) Urine Test Negative (Negative) Salicylates (15.0-30.0) mg/dL Urine Opiates Screen Negative (Vgmzaa=617) ng/mL Acetaminophen (10-30) mcg/mL Ur Barbiturates Screen Negative (Mlupkn=413) ng/mL Ur Phencyclidine Scrn Negative (Cutoff=25) ng/mL Ur Amphetamines Screen Negative (Tdzbuf=2007) ng/mL U Benzodiazepines Scrn Negative (Wcgohl=200) ng/mL Urine Cocaine Screen Negative (Cutoff= 300) ng/mL U Marijuana (THC) Screen Negative (Cutoff = 50) ng/mL Ethyl Alcohol (0-10) mg/dL 04/19/17 04/19/17 Range/Units 12:29 12:29 WBC 5.3 (4.3-11.1) K/mcL RBC 4.23 (3.82-4.97) M/mcL Hgb 12.9 (11.5-15.4) g/dL Hct 39.0 (35.3-44.9) % MCV 92.2 (83.0-100.0) fL MCH 30.5 (28.0-33.3) pg MCHC 33.1 (31.6-35.5) g/dL RDW 13.2 (11.5-14.5) % Plt Count 270 (140-400) K/mcL MPV 8.7 L (9.4-12.4) fL Immature Gran % 0.7 (0-4) % Seg Neutrophils % 49.9 % Lymphocytes % 36.0 % Monocytes % 9.7 % Eosinophils % 2.8 % Basophils % 0.9 % Neutrophils # 2.7 (1.6-8.9) K/mcL Lymphocytes # 1.9 (0.6-4.6) K/mcL Monocytes # 0.5 (0.0-1.3) K/mcL Eosinophils # 0.2 (0.0-0.6) K/mcL Basophils # 0.1 (0.0-0.2) K/mcL Sodium 135 L (136-145) mEq/L Potassium 4.1 (3.5-5.1) mEq/L Chloride 101 (98-107) mEq/L Carbon Dioxide 25 (23-29) mEq/L BUN 18 (6-20) mg/dL Creatinine 0.99 (0.60-1.20) mg/dL Est GFR ( Amer) > 60 (> 60) Est GFR (Non-Af Amer) > 60 (> 60) BUN/Creatinine Ratio 18 (6-26) Glucose 92 (70-105) mg/dL Calculated Osmolality 282 (280-300) Calcium 9.0 (8.6-10.3) mg/dL Urine Color (Yellow) Urine Clarity (Clear) Urine pH (5.0-8.0) pH Units Ur Specific [place] (1.010-1.025) Urine Protein (Neg-Trace) mg/dL Urine Glucose (UA) (Normal) mg/dL Urine Ketones (Negative) mg/dL Urine Blood (Negative) Urine Nitrite (Negative) Urine Bilirubin (Negative) Urine Urobilinogen (Normal) mg/dL Ur Leukocyte Esterase (Negative) Urine Test (Negative) Salicylates < 5.0 L (15.0-30.0) mg/dL Urine Opiates Screen (Agewyk=755) ng/mL Acetaminophen < 1.0 L (10-30) mcg/mL Ur Barbiturates Screen (Xedttp=907) ng/mL Ur Phencyclidine Scrn (Cutoff=25) ng/mL Ur Amphetamines Screen (Teaycw=2289) ng/mL U Benzodiazepines Scrn (Fttxgr=702) ng/mL Urine Cocaine Screen (Cutoff= 300) ng/mL U Marijuana (THC) Screen (Cutoff = 50) ng/mL Ethyl Alcohol < 10 (0-10) mg/dL - EKG Data EKG attestation: Yes I reviewed and interpreted this EKG. EKG shows normal: sinus rhythm Rate: normal Rhythm: NSR Galt/QRS: normal Q waves: aVR T wave inversions noted in: III, aVR, v1 When compared to previous EKG there are: no significant changes Interpretation: no acute changes Psychiatric Medical Clearance - Medical Clearance Checklist Does the patient have a NEW psychiatric condition?: No Any abnormalities indicating possible medical illness?: No Any history of medical issues?: No Medical History: (This Medical Record has been edited. Action required.) Weakness generalized (Acute) Lethargy (Acute) Bipolar 1 disorder (Acute) Neutrophilia (Acute) Catatonia (Acute) History of bipolar disorder (Chronic) Post traumatic stress disorder (PTSD) (Chronic) UTI (urinary tract infection) (Chronic) Conversion disorder (Acute) Acute respiratory failure (Acute) Encephalopathy (Acute) HCAP (healthcare-associated pneumonia) (Acute) Hyponatremia (Acute) Delirium due to another medical condition (Acute) Vaginal bleeding (Acute) Abdominal pain, generalized (Acute) Bradycardia (Acute) Light headed (Acute) Nausea (Resolved) DVT prophylaxis (Acute) Hypertension (Chronic) Abnormal urinalysis (Acute) OAB (overactive bladder) (Chronic) Suicidal ideation (Acute) Acute anxiety (Acute) Depression (Acute) Depressive disorder (Acute) Anxiety disorder (Acute) Learning disabilities (Acute) Vomiting (Acute) Abdominal wall cellulitis (Acute) Abdominal pain (Acute) Cough (Acute) UTI (urinary tract infection) (Acute) Incarcerated hernia of abdominal cavity (Acute) Sepsis (Acute) Anemia (Acute) Medical clearance for psychiatric admission (Acute) Bipolar disorder current episode depressed (Acute) Open wound anterior abdominal wall (Acute) Abnormal urine findings (Inactive) Allergic rhinitis (Inactive) Asthma (Inactive) Asthma (Inactive) Asthma with exacerbation (Inactive) Bipolar disorder (Inactive) Bronchitis (Inactive) Conjunctivitis (Inactive) Constipation (Inactive) Cough (Inactive) Dysuria (Inactive) Left otitis media (Inactive) Multifocal pneumonia (Inactive) Nausea (Inactive) Nausea & vomiting (Inactive) Otitis externa (Inactive) Otitis media (Inactive) Pharyngitis (Inactive) Reactive airway disease that is not asthma (Inactive) Right otitis media (Inactive) Sinusitis (Inactive) Situational depression (Inactive) Sty, external (Inactive) Suicidal ideation (Inactive) Upper respiratory infection (Inactive) Upper respiratory infection (Inactive) Vaginal itching (Inactive) (This Medical Record has been edited. Action required.) No Social History Section defined Any abnormal vital signs prior to transfer?: No Current Vitals: Last Vital Signs Temp 98.1 F 04/19/17 11:40 Pulse 92 04/19/17 11:40 Resp 18 04/19/17 11:40 BP 139/84 04/19/17 11:40 Pulse Ox 97 04/19/17 11:40 Is the patient intoxicated or cognitively impaired?: No Psychiatric Lab Panel: Drug Levels and Toxicity 04/19/17 04/19/17 12:10 12:29 Urine Opiates Screen Negative Acetaminophen < 1.0 L Ur Barbiturates Screen Negative Ur Phencyclidine Scrn Negative Ur Amphetamines Screen Negative U Benzodiazepines Scrn Negative Urine Cocaine Screen Negative U Marijuana (THC) Screen Negative Ethyl Alcohol < 10 Any abnormalities on the physical exam?: No Any abnormal labs?: No Abnormal Labs: Abnormal lab results MPV 8.7 fL (9.4-12.4) L 04/19/17 12:29 Sodium 135 mEq/L (136-145) L 04/19/17 12:29 Urine Clarity Cloudy (Clear) A 04/19/17 12:10 Urine Blood Small (Negative) H 04/19/17 12:10 Urine Bilirubin Large (Negative) H 04/19/17 12:10 Ur Leukocyte Esterase Small (Negative) H 04/19/17 12:10 Salicylates < 5.0 mg/dL (15.0-30.0) L 04/19/17 12:29 Acetaminophen < 1.0 mcg/mL (10-30) L 04/19/17 12:29 Does the patient require durable medical equiptment?: No Is the patient ambulatory?: No Is the patient a fall risk?: No Has the patient been medically cleared?: Yes Any acute medical condition require Tx prior to transfer?: No [facility] - [facility] Situation: Demographics Background: Presenting Complaint Assessment: Vital Signs, Course and respsone to treatment, Patient/Family Expectation Recommendation: Barrier(s) to disposition, Recommendation based on pending studies, treatments, or consults Wade Report Given to: Hany Wade Repor Time: 15:12 Attestation Statement - Attestation Attestation: I examined this patient and my medical decision-making was reviewed with the Resident Physician. I agree with the documented findings, disposition and treatment plan as described except to the extent set forth below. 46-year-old female presents the emergency department because of suicidal ideations. She has a history of depression. She refers to recent loss of a friend who committed suicide. For the past 2 nights she has tried to harm herself by taking 2 extra Seroquel tablets and 1 extra trazodone at all. When she woke up today and realized that her attempt to kill himself failed, she came to the emergency department for evaluation. Denies any other toxic ingestions. No other medical complaint. Morbidly obese female sitting up in bed awake alert and interactive. Oropharynx clear. Neck supple trachea midline. Chest is clear to auscultation bilaterally. Cardiac exam regular without rubs gallops. Abdomen soft, nondistended and nontender Extremities warm and dry. Emergency department workup was unremarkable. She was medically cleared and evaluated by psychiatric services who felt she needed be admitted for further intervention.
[2017-04-19 12:36] LABS: Basophils # 0.1 K/mcL (0.0-0.2); Basophils % 0.9 %; Eosinophils # 0.2 K/mcL (0.0-0.6); Eosinophils % 2.8 %; Hemoglobin 12.9 g/dL (11.5-15.4); Immature Granulocytes % 0.7 % (0-4); Lymphocytes # 1.9 K/mcL (0.6-4.6); Mean Corpuscular HGB Conc 33.1 g/dL (31.6-35.5); Mean Corpuscular Hemoglobin 30.5 pg (28.0-33.3); Mean Corpuscular Volume 92.2 fL (83.0-100.0); Mean Platelet Volume 8.7 fL (9.4-12.4); Monocytes # 0.5 K/mcL (0.0-1.3); Monocytes % 9.7 %; Neutrophils # 2.7 K/mcL (1.6-8.9); Platelet Count 270 K/mcL (140-400); Red Blood Count 4.23 M/mcL (3.82-4.97); Red Cell Distribution Width 13.2 % (11.5-14.5); Segmented Neutrophils % 49.9 %
[2017-04-19 12:41] LABS: Amphetamine Screen,Urine Negative ng/mL (Cutoff=1000); Barbiturate Screen,Urine Negative ng/mL (Cutoff=200); Benzodiazepines Screen,Urine Negative ng/mL (Cutoff=200); Cannabinoid Screen,Urine Negative ng/mL (Cutoff = 50); Cocaine Screen,Urine Negative ng/mL (Cutoff= 300); Opiate Screen,Urine Negative ng/mL (Cutoff=300); Phencyclidine Screen,Urine Negative ng/mL (Cutoff=25)
[2017-04-19 12:48] LABS: BUN/Creatinine Ratio 18 (6-26); Blood Urea Nitrogen 18 mg/dL (6-20); Carbon Dioxide 25 mEq/L (23-29); Chloride 101 mEq/L (98-107); Glucose 92 mg/dL (70-105); Osmolality,Calculated 282 (280-300); Potassium 4.1 mEq/L (3.5-5.1); Sodium 135 mEq/L (136-145); eGFR For African Americans > 60 (> 60); eGFR For Non-African Americans > 60 (> 60)
[2017-04-19 12:56] LABS: Acetaminophen < 1.0 mcg/mL (10-30); Ethanol < 10 mg/dL (0-10); Salicylate < 5.0 mg/dL (15.0-30.0)
[2017-04-19 13:19] LABS: Clarity,Urine Cloudy (Clear); Color,Urine Yellow (Yellow)
[2017-04-19 13:20] LABS: Bilirubin,Urine Large (Negative); Blood,Urine Small (Negative); Glucose,Urine (UA) Normal (Normal); Ketones,Urine Negative (Negative); Leukocyte Esterase,Urine Small (Negative); Nitrite,Urine Negative (Negative); PH,Urine 6.5 pH Units (5.0-8.0); Protein,Urine Negative (Neg-Trace); Specific Gravity,Urine 1.018 (1.010-1.025); Urobilinogen,Urine Normal (Normal)
[2017-04-19] MEDS ORDERED: Haloperidol Lactate 5 MG/ML VIAL IM PRN (15:53)
[2017-04-19] MEDS ORDERED: Mag Hydrox/Al Hydrox/Simeth 30 ML UDC PO PRN (15:53)
[2017-04-19] MEDS ORDERED: *HR* LORazepam 2 MG/ML VIAL IM PRN (15:53)
[2017-04-19] MEDS ORDERED: *HR* LORazepam 1 MG TABLET PO PRN (15:53)
[2017-04-19] MEDS ORDERED: MOM Conc 10 ML UD.LIQ PO PRN (15:53)
[2017-04-19] MEDS ORDERED: Fluticasone Propionate Nasal 50 MCG/SPRAY BOTTLE NS PRN (15:58)
[2017-04-19] MEDS ORDERED: Divalproex (24 HR) 500 MG TABLET PO SCH (21:00)
[2017-04-19] MEDS: cloNIDine HCl 0.1 MG TABLET PO SCH (21:00)
[2017-04-19] MEDS: Gabapentin 300 MG CAPSULE PO SCH (21:02)
[2017-04-19] MEDS: traZODone 50 MG TABLET PO PRN (21:06)
[2017-04-19] MEDS ORDERED: Ipratropium/Albuterol Neb 3 ML IH PRN (22:00)
[2017-04-19] MEDS: Budesonide/Formoterol 80/4.5 MDI IH SCH (22:37)
[2017-04-20] MEDS: amLODIPine 5 MG TABLET PO SCH (08:21)
[2017-04-20] MEDS: Gabapentin 300 MG CAPSULE PO SCH ×3 (08:21→20:23)
[2017-04-20] MEDS ORDERED: Divalproex (24 HR) 500 MG TABLET PO SCH (09:00)
[2017-04-20] MEDS: Budesonide/Formoterol 80/4.5 MDI IH SCH ×2 (09:20→21:02)
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
[2017-04-20] MEDS: Divalproex (24 HR) 500 MG TABLET PO SCH (20:23)
[2017-04-20] MEDS: cloNIDine HCl 0.1 MG TABLET PO SCH (20:23)
[2017-04-20] MEDS: OLANZapine 10 MG TAB.RAPDIS PO SCH (20:24)
[2017-04-20] MEDS: traZODone 50 MG TABLET PO PRN (23:21)
[2017-04-21] MEDS: Gabapentin 300 MG CAPSULE PO SCH ×3 (08:31→20:39)
[2017-04-21] MEDS: amLODIPine 5 MG TABLET PO SCH (08:32)
[2017-04-21] MEDS: Budesonide/Formoterol 80/4.5 MDI IH SCH ×2 (08:34→20:45)
--- NOTE | 2017-04-21 09:53 | Psychiatry Progress Note ---
Date of Encounter: 04/21/17 Time of Encounter: 08:50 Subjective Interval history: Patient is seen today for follow-up. She reports that last night the Zyprexa made her feel "wired." She was restless all night and did not sleep well. She also had vivid dreams. Patient states that she feels more depressed today. She denies suicidal ideations but is frustrated that she is not feeling better. She is willing to attend groups. She has been cooperative with peers and staff. Patient reports she has been taking a low-dose of trazodone outside the hospital and wonders if this dosage should be increased to help with her sleep. She also wants to try different medication for her mood. Review of Systems Constitutional: Denies: fever, chills, weakness, weight change Eyes: Denies: eye pain, vision change Ears, Nose, Throat: Denies: ear pain, throat pain, dental pain, hearing loss, congestion Cardiovascular: Denies: chest pain, palpitations, dyspnea on exertion Respiratory: Denies: cough, dyspnea, wheezes Gastrointestinal: Denies: abdominal pain, nausea, vomiting, diarrhea, constipation Musculoskeletal: Denies: joint swelling, joint pain Neurological: Denies: headache, weakness, numbness, memory loss Psychiatric: Reports: depression, anxiety, abnormal sleep pattern, anhedonia, difficulty concentrating, hopelessness, irritability, mood swings Objective: Exam Patient orientation: Yes Person, Yes Time, Yes Place Level of alertness: Alert Patient appearance: Appropriate, Well Groomed Behavior: calm, cooperative Psychomotor activity: Normal Eye contact: Minimal Contact Mood description: Euthymic/stable, Depressed Affect description: dysphoric Speech pattern: Normal rate, Normal rhythm, Normal tone Speech volume: Normal Thought process: Linear, Goal Oriented Thought content: No Suicidal ideation, No Homicidal ideation, No Overt delusions Perceptual disturbances: No Auditory hallucinations, No Visual hallucinations Judgment: Limited Insight: Minimal Results - Vital Signs Vital Signs: Temp Pulse Resp BP Pulse Ox 97.7 F 61 20 120/60 97 04/21/17 09:00 04/21/17 09:00 04/21/17 09:00 04/21/17 09:00 04/19/17 11:40 Assessment and Plan (1) Major depressive disorder, recurrent, severe with psychotic features Current visit: Yes Status: Acute Plan: Continue hospitalization, Close observation, Suicide Precautions per unit protocol, Encourage participation in unit milieu, Group Therapy, Monitor sleep, Monitor appetite Additional Plan: We will discontinue Zyprexa and finish Seroquel taper. Start low dose of Geodon at bedtime. Increase when necessary trazodone to 100 mg by mouth daily at bedtime. Encourage group attendance. Current coping strategies. Risks, benefits, side effects, alternatives discussed w/pt: Yes Patient agreeable to treatment: Yes (2) Anxiety Current visit: Yes Status: Acute Consult Discharge Plan - Plan Referrals: Yoni Mcneal MD [Partnered Physician] -
[2017-04-21] MEDS: Ziprasidone 20 MG CAPSULE PO SCH (20:39)
[2017-04-21] MEDS: traZODone 50 MG TABLET PO PRN (20:40)
[2017-04-21] MEDS: cloNIDine HCl 0.1 MG TABLET PO SCH (20:40)
[2017-04-21] MEDS: Divalproex (24 HR) 500 MG TABLET PO SCH (20:42)
[2017-04-21] MEDS: OLANZapine 10 MG TAB.RAPDIS PO SCH (20:44)
[2017-04-21] MEDS: Ibuprofen 400 MG TABLET PO PRN (22:30)
--- NOTE | 2017-04-22 07:54 | Electrocardiograph Report ---
[place] [id number] Test Date: 2017-04-19 Pat Name: Justyn Mckeon Department: 104 Room: 1A24 Gender: F Inpatient Nursing Aide: : 1970 Requested By: Adam Michel Order Number: [id number] Reading MD: Star Echeverria MD Measurements Intervals [place] Rate: 69 P: 23 WA: 169 QRS: -3 QRSD: 91 T: 2 QT: 389 QTc: 408 Interpretive Statements SINUS RHYTHM MODERATE VOLTAGE CRITERIA FOR LVH, CONSIDER NORMAL VARIANT Electronically Signed On 04-22-2017 6:31:00 EST by Star Echeverria MD
[2017-04-22] MEDS: Gabapentin 300 MG CAPSULE PO SCH ×3 (09:06→20:31)
[2017-04-22] MEDS: amLODIPine 5 MG TABLET PO SCH (09:09)
[2017-04-22] MEDS: Budesonide/Formoterol 80/4.5 MDI IH SCH ×2 (09:10→21:02)
--- NOTE | 2017-04-22 09:21 | Psychiatry Progress Note ---
Date of Encounter: 04/22/17 Time of Encounter: 09:00 Subjective Interval history: Justyn is seen today for follow-up. She reports that the Geodon did not cause the same issues as Zyprexa. She does feel a bit groggy this morning but states that overall she feels the medicine is better than the previous medicine. She is willing to give it a few days to see if it helps with her mood. She still has periods of depression and feelings of sadness. She denies thoughts of wanting to hurt herself but does feel "like I just want to sleep my life away." She is interacting appropriately with peers and staff and attending some groups. Review of Systems Psychiatric: Reports: depression, anxiety, auditory hallucinations, anhedonia, hopelessness Objective: Exam Patient orientation: Yes Person, Yes Time, Yes Place Level of alertness: Alert Patient appearance: Appropriate Behavior: calm, cooperative Psychomotor activity: Normal Eye contact: Maintains Eye Contact Mood description: Depressed Affect description: congruent with mood Speech pattern: Normal rate, Normal rhythm, Normal tone Speech volume: Normal Thought process: Intact, Logical Thought content: No Suicidal ideation, No Homicidal ideation Perceptual disturbances: Yes Auditory hallucinations (Improving), No Visual hallucinations Judgment: Limited Insight: Minimal Results - Vital Signs Vital Signs: Temp Pulse Resp BP Pulse Ox 97.9 F 78 18 119/85 97 04/21/17 20:17 04/21/17 20:17 04/21/17 20:17 04/21/17 20:17 04/19/17 11:40 Assessment and Plan (1) Major depressive disorder, recurrent, severe with psychotic features Current visit: Yes Status: Acute Plan: Continue hospitalization, Close observation, Suicide Precautions per unit protocol, Encourage participation in unit milieu, Group Therapy, Monitor sleep, Monitor appetite Additional Plan: Continue Geodon for now. Encourage group attendance. Encourage positive coping strategies. Patient is showing some mild improvement overall. Discharge tomorrow if patient continues to show improvement. Risks, benefits, side effects, alternatives discussed w/pt: Yes Patient agreeable to treatment: Yes (2) Anxiety Current visit: Yes Status: Acute Consult Discharge Plan - Plan Referrals: [facility] [Outside] - 05/05/17 3:00 pm (The above appointment is with Linda Juarez, counselor at [facility]. Your first appointment will be very thorough and the total appointment time will take between two and three hours. You will be completing paperwork, meeting with a counselor and a nurse, and developing a treatment plan. You will receive follow- up appointments for on-going services , which could include community support, mental health and substance abuse counseling, groups/partial hospitalization programming, medication assisted treatment, and psychiatric medication management. Please bring the following with you to your first visit to the clinic: 1) proof of household income (two consecutive pay stubs, social security award letter, bank statement, statement letter from [facility], child support statement, IRS 1040 or W2 form, or a statement from the person who financially supports you stating they help provide for your basic needs), 2) proof of residency (drivers license, a piece of mail showing your address, a statement from person you live with verifying you live at their address), 3) your social security card, 4) photo ID, and 5) your insurance card (if you have commercial insurance you must call to obtain a prior authorization number before you arrive to your first appointment). If you do not bring these items, you will not be seen. ) [facility] [Outside] - 05/01/17 3:30 pm (The above appointment is with Stephanie Hartley for outpatient psychiatric assessment and medication management services.)
[2017-04-22] MEDS: Ibuprofen 400 MG TABLET PO PRN ×2 (14:47→20:33)
[2017-04-22] MEDS: Divalproex (24 HR) 500 MG TABLET PO SCH (20:30)
[2017-04-22] MEDS: OLANZapine 10 MG TAB.RAPDIS PO SCH (20:31)
[2017-04-22] MEDS: traZODone 50 MG TABLET PO PRN (20:32)
[2017-04-22] MEDS: cloNIDine HCl 0.1 MG TABLET PO SCH (20:33)
[2017-04-22] MEDS: Ziprasidone 20 MG CAPSULE PO SCH (20:33)
[2017-04-23] MEDS: Gabapentin 300 MG CAPSULE PO SCH (08:22)
[2017-04-23] MEDS: amLODIPine 5 MG TABLET PO SCH (08:56)
[2017-04-23 09:16] VITALS: BP 117/82
[2017-04-23] MEDS: Budesonide/Formoterol 80/4.5 MDI IH SCH (09:55)
[2017-04-23] MEDS: Ibuprofen 400 MG TABLET PO PRN (09:57)
--- NOTE | 2017-04-23 10:16 | Discharge Summary ---
Date of Encounter: 04/23/17 Time of Encounter: 08:30 Diagnosis - Discharge Diagnosis (1) Major depressive disorder, recurrent, severe with psychotic features Priority: Primary Status: Acute (2) Anxiety Priority: Secondary Status: Acute Medications - Discharge Medications Prescriptions: traZODone [TraZODone] 100 mg PO HS PRN #60 tablet PRN Reason: Sleep Ziprasidone [Geodon] 40 mg PO HS #30 capsule Amlodipine Besylate 10 mg PO DAILY 12/10/15 [History] Albuterol Sulfate [Albuterol Inhaler] 2 puff IH Q6HR PRN 04/02/16 [History] Buspirone HCl [Buspar] 30 mg PO TID 01/08/17 [History] Fluticasone Propionate Nasal [Flonase] 50 mcg NS BID PRN 01/08/17 [History] Gabapentin [Neurontin] 600 mg PO TID 01/08/17 [History] Losartan Potassium [Cozaar] 50 mg PO DAILY 01/08/17 [History] Montelukast [Singulair] 10 mg PO QPM 01/08/17 [History] cloNIDine HCl [CloNIDine HCl] 0.1 mg PO HS 01/08/17 [History] Ipratropium/Albuterol Neb [Duoneb] 3 ml IH Q6H PRN #30 vial.neb 02/12/17 [Rx] Fluticasone/Salmeterol [Advair Hfa 115-21 Mcg Inhaler] 2 puff IH BID 04/19/17 [ History] Omeprazole [PriLOSEC] 20 mg PO DAILY 04/19/17 [History] Ziprasidone [Geodon] 40 mg PO HS #30 capsule 04/23/17 [Rx] traZODone [TraZODone] 100 mg PO HS PRN #60 tablet 04/23/17 [Rx] 3 Allergy/AdvReac Type Severity Reaction Status Date / Time codeine Allergy Unresponsiv Verified 04/19/17 11:43 e risperidone [From Risperdal] Allergy Anaphylaxis Verified 04/19/17 11:43 Results Procedures and tests throughout hospitalization: Completed Lab Orders Category Date Time Status Valproate Routine Lab 04/19/17 12:29 Completed Provider Date of admission: 04/19/17 15:20 Primary care physician: PCP NONE Discharging clinician: Basia Espino Assessment and Plan - Patient/Caregiver Discharge Instructions Activity: resume usual activities as tolerated Diet: regular diet - Follow up Plan Follow up with: [facility] [Outside] - 05/05/17 3:00 pm (The above appointment is with Linda Juarez, counselor at [facility]. Your first appointment will be very thorough and the total appointment time will take two hours. You will be completing paperwork, meeting with a counselor and a nurse, and developing a treatment plan. You will receive follow- up appointments for on-going services, which could include community support, mental health and substance abuse counseling, groups/partial hospitalization programming, medication assisted treatment, and psychiatric medication management. Please bring the following with you to your first visit to the clinic: 1) proof of household income (two consecutive pay stubs, social security award letter, bank statement, statement letter from [facility], child support statement, IRS 1040 or W2 form, or a statement from the person who financially supports you stating they help provide for your basic needs), 2) proof of residency (drivers license, a piece of mail showing your address, a statement from person you live with verifying you live at their address), 3) your social security card, 4) photo ID, and 5) your insurance card (if you have commercial insurance you must call to obtain a prior authorization number before you arrive to your first appointment). If you do not bring these items, you will not be seen. ) [facility] [Outside] - 05/01/17 3:30 pm (The above appointment is with Stephanie Hartley for outpatient psychiatric assessment and medication management services.) Functional capacity at discharge: independent ambulation Overall status at discharge: Stable Disposition: Home, Self-Care Hospital Course Hospital course: Ms. Mckeon is a 46 year old female who presents to the hospital with increasing depression, anxiety, suicidal thoughts. She was admitted to for psychiatric stabilization milieu and individual as well as recreational therapy and she was also offered psychoeducational materials and supportive therapy. She was placed on suicide precautions and close observation. She was started on Zyprexa for mood symptoms but this made her feel restless. It was discontinued and patient was started on Geodon. Her Depakote was tapered. Patient was given trazodone for sleep. She tolerated these medications well and denied side effects. Throughout the course of the hospital stay the patient 's mood improved. She began to deny suicidal ideations she was reporting initially some auditory and very visual hallucinations. These also improved her course in the hospital stay. Patient was cooperative with peers and staff and did attend some group and unit activities while on the unit. At the time of discharge patient denied suicidal or homicidal ideation, intent or plan and reported that she felt much better. She felt more hopeful for the future. She is discharged in stable condition. - Time Spent with Patient Total time spent providing and/or coordinating discharge services: Less than 30 minutes Quality - Multiple Antipsychotics Patient discharged on 2 or more antipsychotic medications: No Procedures - Procedures Procedures: Medication Management, Crisis Stabilization, Supportive Therapy, Group Therapy, Psychoeducational Therapy Mental Status Exam - Mental Status Exam Patient orientation: Yes Person, Yes Time, Yes Place Level of alertness: Alert Patient appearance: Appropriate, Well Groomed Behavior: calm, cooperative Psychomotor activity: Normal Eye contact: Maintains Eye Contact Mood description: Euthymic/stable Affect description: congruent with mood, full range Speech pattern: Normal rate, Normal rhythm, Normal tone Speech Volume: Normal Thought process: Linear, Goal Oriented Thought Content: No Suicidal ideation, No Homicidal ideation, No Overt delusions Perceptual Disturbances: No Auditory hallucinations, No Visual hallucinations Judgment: Limited Insight: Partial
== END 2017-04-23 13:35 | disposition home or self-care (01) | DRG 885 ==
LOC: EMEROO 11:40 → 1ANU 15:20 → SUATTDRO 15:20 → 1ANU 15:50
PROVIDERS: ADMIT Psychiatry & Neurology Psychiatry; ATTEND Student in an Organized Health Care Education/Training Program

== ENCOUNTER 2017-11-29 19:31 | Inpatient (IN) ==
--- NOTE | 2017-11-29 20:05 | Emergency Department Note ---
Disposition Clinical Impression: Dehydration, Bacterial conjunctivitis of left eye, ALYSSA (acute kidney injury) Suicidal behavior Qualifiers: Attempted self-injury: without attempted self-injury Qualified Code(s): R46.89 - Other symptoms and signs involving appearance and behavior Disposition: Admitted As Inpatient Condition: Fair Time of Disposition: 04:16 Psych HPI - General Chief Complaint: ED Psychiatric Symptoms Stated Complaint: anxiety so bad she could harm herself Time Seen by Provider: 11/29/17 19:40 Source: patient, family Mode of arrival: ambulatory Limitations: no limitations Nursing Notes Reviewed: Yes Vital Signs Reviewed: Yes - History of Present Illness HPI Narrative: Patient is a 47-year-old female presenting with anxiousness and thoughts of harming herself. Patient has past medical history of bipolar disorder, schizoaffective disorder and dissociative identity disorder, anxiety and depression. Per patient, she has been very anxious state over the past few months permissively getting worse over the past week or so due to her father coming into town. She states that she has regular thoughts of harming herself and suicidal ideation in the morning, however with further discussion, the patient states that she would never kill herself and she wants to live. She currently does not have a plan. She does have multiple suicide attempts in the past her in the room. She also has racing thoughts, disorganized thoughts and pressured speech. Per her her manic episodes are variable in nature, however based on her past, he feels as though this is a manic episode. She denies thoughts of harming others or homicidal ideation. She does have regular visual and auditory hallucinations. She states that they can take the form of many different people. She reports that she takes her medications regularly, has not missed a dose any time recently. Per , he said that her medications in the morning and at night and she has been taking them. She does see a psychiatrist regularly and goes to counseling meetings regularly. Per , she was started about 3 months ago on Adipex per her primary care physician, and has noticed a progressive change in her behavior and anxiety. She was told to stop this medication 3 days ago per her psychiatrist. He has noticed a increasing symptoms since this time. Patient currently states that she has nausea, no vomiting. She denies chest pain, shortness of breath, palpitations. She denies abdominal pain, lightheaded , dizziness or syncopal episode. Per she does have regular dissociative identity changes, last one being about 2 hours ago. - Related Data Home Medications Medication Instructions Recorded Confirmed Amlodipine Besylate 10 mg PO DAILY 12/10/15 11/30/17 Albuterol Sulfate [Albuterol 2 puff IH Q6HR PRN 04/02/16 11/30/17 Inhaler] Buspirone HCl [Buspar] 30 mg PO TID 01/08/17 11/30/17 Fluticasone Propionate Nasal 50 mcg NS BID PRN 01/08/17 11/30/17 [Flonase] Losartan Potassium [Cozaar] 50 mg PO DAILY 01/08/17 11/30/17 cloNIDine HCl [CloNIDine HCl] 0.1 mg PO HS 01/08/17 11/30/17 Fluticasone/Salmeterol [Advair Hfa 2 puff IH BID 04/19/17 11/30/17 115-21 Mcg Inhaler] Previous Rx's Medication Instructions Recorded Ipratropium/Albuterol Neb [Duoneb] 3 ml IH Q6H PRN #30 vial.neb 02/12/17 traZODone [TraZODone] 100 mg PO HS #18 tablet 04/23/17 Erythromycin OPTH Oint 1 appl LEFT EYE Q6H 7 Days #1 tube 11/30/17 Allergies Allergy/AdvReac Type Severity Reaction Status Date / Time codeine Allergy Unresponsiv Verified 11/23/17 15:42 e risperidone [From Risperdal] Allergy Anaphylaxis Verified 11/23/17 15:42 All systems ED: reviewed and negative except as stated. Review of Systems: As Per HPI Constitutional: Denies: fever, chills ENT ED: Denies: congestion Cardiovascular: Denies: chest pain, palpitations, dyspnea on exertion, syncope Respiratory: Denies: cough, dyspnea, wheezes Gastrointestinal: Reports: nausea. Denies: abdominal pain, vomiting Genitourinary: Denies: urgency, dysuria Musculoskeletal: Denies: back pain Integumentary: Denies: rash Neurological: Reports: confusion. Denies: headache, weakness, numbness, paresthesias Psychiatric: Reports: anxiety, depression, suicidal thoughts, auditory hallucinations, visual hallucinations. Denies: homicidal thoughts Past Medical History - Past Medical History Medical history: Reports: other Surgical history: Reports: cholecystectomy, other, hysterectomy, Psychiatric history: Reports: previous psychiatric hospitalization, bipolar, depression, PTSD, prior suicide attempt [employer] history: Reports: dysfunctional uterine bleed, uterine fibroids - Social History Smoking Status: Never smoker Smokeless Tobacco Status: No Alcohol use: Reports: none Drug use: Reports: none Physical Exam - General Limitations: altered mental status, other (Patient sitting the bed, moving anxiously with pressured speech, and disorganized thoughts, although cooperative and answering questions) General appearance: alert, anxious - Head Head exam: atraumatic, normocephalic - Eye Eye exam: Present: normal appearance, PERRL, EOMI, other (conjuctival injection to the left eye with purulent drainage) - ENT ENT exam: normal exam, mucous membranes dry - Neck Neck exam: Present: normal inspection - Chest Chest inspection: Present: normal inspection, symmetric chest wall rise - Respiratory Respiratory exam: Present: normal lung sounds bilaterally. Absent: wheezes - Cardiovascular Cardiovascular exam: Present: regular rate, normal rhythm - Abdominal Exam Abdominal exam: Present: soft, Non-Tender. Absent: distention, guarding, rebound, rigidity - Extremities Exam Extremities exam: Present: normal inspection, normal capillary refill. Absent: tenderness - Neurological Exam Neurological exam: Present: alert, oriented X3 - Psychiatric Psychiatric exam: Present: normal affect, anxious, manic, other (Thoughts of harming herself). Absent: homicidal ideation, suicidal ideation Course Course Narrative: Will perform medical clearance, give Phenergan for nausea and suggested oral hydration. Once medically cleared, 1A will be called for further evaluation and recommendations. Vital Signs Temperature 98.7 F 11/29/17 19:33 Pulse Rate 82 11/29/17 19:33 Respiratory Rate 12 11/29/17 19:33 Blood Pressure 140/112 11/29/17 19:33 O2 Sat by Pulse Oximetry 97 11/29/17 19:33 Temperature 98.7 F 11/29/17 19:33 Pulse Rate 89 11/30/17 02:03 Respiratory Rate 12 11/30/17 02:03 Blood Pressure 129/95 11/30/17 02:03 O2 Sat by Pulse Oximetry 95 11/30/17 02:03 Oxygen Delivery Oxygen Delivery Room Air Psych - MDM Narrative Medical decision making narrative: Patient is a 39-year-old female presenting with acute anxiety same thoughts of harming herself. Past medical history significant for bipolar disorder, dissociative identity disorder, schizoaffective disorder, anxiety and depression. Laboratory evaluation in the ER shows CBC relatively unremarkable, negative urine tox and alcohol. Increase in creatinine at 1.67, with no prior history of kidney disease as well as GFR 30. BUN/creatinine ratio is normal, low likelihood of dehydration etiology at this point in time. We will start fluid bolus and ordered urine creatinine and urine sodium further evaluation. Urinalysis is unremarkable. Urine sodium and urine creatinine revealed a FENA that was less than 1% suggestive of prerenal etiology for ALYSSA. Will continue with fluid bolus and reassess BMP. Repeat BMP shows improving creatinine decreased at 1.26 with improving GFR. Most likely prerenal ALYSSA, secondary to dehydration. At this point patient is medically cleared and will call in 1A for further evaluation and recommendations. Following evaluation with 1A, at 0411, patient has been admitted for 1a further treatment. - Differential Diagnosis Likely: bipolar disorder, acute anxiety state - Medical Records Medical records reviewed: Yes I reviewed the patient's medical records. - Lab Data Lab results reviewed: Yes I reviewed the patient's lab results. Result diagrams: 11/29/17 20:11 11/30/17 00:18 Lab Results 11/29/17 11/29/17 11/29/17 Range/Units 20:11 20:11 20:41 WBC 7.9 (4.3-11.1) K/mcL RBC 4.15 (3.82-4.97) M/mcL Hgb 12.9 (11.5-15.4) g/dL Hct 36.3 (35.3-44.9) % MCV 87.5 (83.0-100.0) fL MCH 31.1 (28.0-33.3) pg MCHC 35.5 (31.6-35.5) g/dL RDW 13.9 (11.5-14.5) % Plt Count 228 (140-400) K/mcL MPV 8.6 L (9.4-12.4) fL Immature Gran % 1.1 (0-4) % Seg Neutrophils % 48.0 % Lymphocytes % 34.8 % Monocytes % 12.7 % Eosinophils % 2.9 % Basophils % 0.5 % Neutrophils # 3.8 (1.6-8.9) K/mcL Lymphocytes # 2.8 (0.6-4.6) K/mcL Monocytes # 1.0 (0.0-1.3) K/mcL Eosinophils # 0.2 (0.0-0.6) K/mcL Basophils # 0.0 (0.0-0.2) K/mcL Sodium 134 L (136-145) mEq/L Potassium 4.6 (3.5-5.1) mEq/L Chloride 102 (98-107) mEq/L Carbon Dioxide 19 L (23-29) mEq/L BUN 28 H (6-20) mg/dL Creatinine 1.67 H (0.60-1.20) mg/dL Est GFR ( Amer) 40 L (> 60) Est GFR (Non-Af Amer) 33 L (> 60) BUN/Creatinine Ratio 17 (6-26) Glucose 97 (70-105) mg/dL Calculated Osmolality 283 (280-300) Lactic Acid (0.5-2.2) mmol/L Calcium 9.2 (8.6-10.3) mg/dL Total Bilirubin 0.4 (0.3-1.0) mg/dL Direct Bilirubin 0.1 (0.0-0.2) mg/dL Indirect Bilirubin 0.3 (0.0-1.2) mg/dL AST 43 H (13-39) Units/L ALT 25 (7-52) Units/L Alkaline Phosphatase 61 (34-104) Units/L Serum Total Protein 6.3 L (6.4-8.9) g/dL Albumin 3.9 (3.5-5.7) g/dL Globulin 2.4 (2.4-3.5) g/dL Albumin/Globulin Ratio 1.6 (1.1-2.2) Urine Color Dark Yellow (Yellow) Urine Clarity Clear (Clear) Urine pH 7.0 (5.0-8.0) pH Units Ur Specific [place] 1.015 (1.010-1.025) Urine Protein 30 H (Neg-Trace) mg/dL Urine Glucose (UA) Normal (Normal) mg/dL Urine Ketones Trace H (Negative) mg/dL Urine Blood Negative (Negative) Urine Nitrite Negative (Negative) Urine Bilirubin Small H (Negative) Urine Urobilinogen Normal (Normal) mg/dL Ur Leukocyte Esterase Moderate H (Negative) Urine Microscopic RBC 5-15 H (0-3) per hpf Urine Microscopic WBC 50-100 H (0-3) per hpf Ur Squamous Epith Cells Many H (None-Few) per lpf Ur Renal Epithelial Cell Few (None-Few) per hpf Urine Bacteria Moderate H (None-Few) per hpf Hyaline Casts Many H (None-Few) per lpf Urine Mucus Moderate H (Few) Urine Creatinine mg/dL Urine Sodium mEq/L Salicylates < 2.5 L (15.0-30.0) mg/dL Urine Opiates Screen (Laalfs=886) ng/mL Acetaminophen < 10 L (10-20) mcg/mL Ur Barbiturates Screen (Znupad=370) ng/mL Ur Phencyclidine Scrn (Cutoff=25) ng/mL Ur Amphetamines Screen (Faveam=6153) ng/mL U Benzodiazepines Scrn (Vkqxvo=710) ng/mL Urine Cocaine Screen (Cutoff= 300) ng/mL U Marijuana (THC) Screen (Cutoff = 50) ng/mL Ur Drug Screen Interp Ethyl Alcohol < 10 (Less than 10) mg/dL 11/29/17 11/29/17 11/29/17 Range/Units 20:41 22:21 22:22 WBC (4.3-11.1) K/mcL RBC (3.82-4.97) M/mcL Hgb (11.5-15.4) g/dL Hct (35.3-44.9) % MCV (83.0-100.0) fL MCH (28.0-33.3) pg MCHC (31.6-35.5) g/dL RDW (11.5-14.5) % Plt Count (140-400) K/mcL MPV (9.4-12.4) fL Immature Gran % (0-4) % Seg Neutrophils % % Lymphocytes % % Monocytes % % Eosinophils % % Basophils % % Neutrophils # (1.6-8.9) K/mcL Lymphocytes # (0.6-4.6) K/mcL Monocytes # (0.0-1.3) K/mcL Eosinophils # (0.0-0.6) K/mcL Basophils # (0.0-0.2) K/mcL Sodium (136-145) mEq/L Potassium (3.5-5.1) mEq/L Chloride (98-107) mEq/L Carbon Dioxide (23-29) mEq/L BUN (6-20) mg/dL Creatinine (0.60-1.20) mg/dL Est GFR ( Amer) (> 60) Est GFR (Non-Af Amer) (> 60) BUN/Creatinine Ratio (6-26) Glucose (70-105) mg/dL Calculated Osmolality (280-300) Lactic Acid 1.3 (0.5-2.2) mmol/L Calcium (8.6-10.3) mg/dL Total Bilirubin (0.3-1.0) mg/dL Direct Bilirubin (0.0-0.2) mg/dL Indirect Bilirubin (0.0-1.2) mg/dL AST (13-39) Units/L ALT (7-52) Units/L Alkaline Phosphatase (34-104) Units/L Serum Total Protein (6.4-8.9) g/dL Albumin (3.5-5.7) g/dL Globulin (2.4-3.5) g/dL Albumin/Globulin Ratio (1.1-2.2) Urine Color (Yellow) Urine Clarity (Clear) Urine pH (5.0-8.0) pH Units Ur Specific [place] (1.010-1.025) Urine Protein (Neg-Trace) mg/dL Urine Glucose (UA) (Normal) mg/dL Urine Ketones (Negative) mg/dL Urine Blood (Negative) Urine Nitrite (Negative) Urine Bilirubin (Negative) Urine Urobilinogen (Normal) mg/dL Ur Leukocyte Esterase (Negative) Urine Microscopic RBC (0-3) per hpf Urine Microscopic WBC (0-3) per hpf Ur Squamous Epith Cells (None-Few) per lpf Ur Renal Epithelial Cell (None-Few) per hpf Urine Bacteria (None-Few) per hpf Hyaline Casts (None-Few) per lpf Urine Mucus (Few) Urine Creatinine 232 mg/dL Urine Sodium 31.4 mEq/L Salicylates (15.0-30.0) mg/dL Urine Opiates Screen Negative (Bizcvq=609) ng/mL Acetaminophen (10-20) mcg/mL Ur Barbiturates Screen Negative (Tvclwl=374) ng/mL Ur Phencyclidine Scrn Negative (Cutoff=25) ng/mL Ur Amphetamines Screen Negative (Ffjyiw=5023) ng/mL U Benzodiazepines Scrn Negative (Azuuyd=425) ng/mL Urine Cocaine Screen Negative (Cutoff= 300) ng/mL U Marijuana (THC) Screen Negative (Cutoff = 50) ng/mL Ur Drug Screen Interp See Below Ethyl Alcohol (Less than 10) mg/dL 11/30/17 Range/Units 00:18 WBC (4.3-11.1) K/mcL RBC (3.82-4.97) M/mcL Hgb (11.5-15.4) g/dL Hct (35.3-44.9) % MCV (83.0-100.0) fL MCH (28.0-33.3) pg MCHC (31.6-35.5) g/dL RDW (11.5-14.5) % Plt Count (140-400) K/mcL MPV (9.4-12.4) fL Immature Gran % (0-4) % Seg Neutrophils % % Lymphocytes % % Monocytes % % Eosinophils % % Basophils % % Neutrophils # (1.6-8.9) K/mcL Lymphocytes # (0.6-4.6) K/mcL Monocytes # (0.0-1.3) K/mcL Eosinophils # (0.0-0.6) K/mcL Basophils # (0.0-0.2) K/mcL Sodium 135 L (136-145) mEq/L Potassium 4.0 (3.5-5.1) mEq/L Chloride 104 (98-107) mEq/L Carbon Dioxide 20 L (23-29) mEq/L BUN 28 H (6-20) mg/dL Creatinine 1.26 H (0.60-1.20) mg/dL Est GFR ( Amer) 55 L (> 60) Est GFR (Non-Af Amer) 45 L (> 60) BUN/Creatinine Ratio 22 (6-26) Glucose 100 (70-105) mg/dL Calculated Osmolality 286 (280-300) Lactic Acid (0.5-2.2) mmol/L Calcium 8.6 (8.6-10.3) mg/dL Total Bilirubin (0.3-1.0) mg/dL Direct Bilirubin (0.0-0.2) mg/dL Indirect Bilirubin (0.0-1.2) mg/dL AST (13-39) Units/L ALT (7-52) Units/L Alkaline Phosphatase (34-104) Units/L Serum Total Protein (6.4-8.9) g/dL Albumin (3.5-5.7) g/dL Globulin (2.4-3.5) g/dL Albumin/Globulin Ratio (1.1-2.2) Urine Color (Yellow) Urine Clarity (Clear) Urine pH (5.0-8.0) pH Units Ur Specific [place] (1.010-1.025) Urine Protein (Neg-Trace) mg/dL Urine Glucose (UA) (Normal) mg/dL Urine Ketones (Negative) mg/dL Urine Blood (Negative) Urine Nitrite (Negative) Urine Bilirubin (Negative) Urine Urobilinogen (Normal) mg/dL Ur Leukocyte Esterase (Negative) Urine Microscopic RBC (0-3) per hpf Urine Microscopic WBC (0-3) per hpf Ur Squamous Epith Cells (None-Few) per lpf Ur Renal Epithelial Cell (None-Few) per hpf Urine Bacteria (None-Few) per hpf Hyaline Casts (None-Few) per lpf Urine Mucus (Few) Urine Creatinine mg/dL Urine Sodium mEq/L Salicylates (15.0-30.0) mg/dL Urine Opiates Screen (Tgjkvx=321) ng/mL Acetaminophen (10-20) mcg/mL Ur Barbiturates Screen (Cabtuo=348) ng/mL Ur Phencyclidine Scrn (Cutoff=25) ng/mL Ur Amphetamines Screen (Nyehfd=0438) ng/mL U Benzodiazepines Scrn (Qkblxy=653) ng/mL Urine Cocaine Screen (Cutoff= 300) ng/mL U Marijuana (THC) Screen (Cutoff = 50) ng/mL Ur Drug Screen Interp Ethyl Alcohol (Less than 10) mg/dL Psychiatric Medical Clearance - Medical Clearance Checklist Medical History: (This Medical Record has been edited. Action required.) No Social History Section defined Current Vitals: Last Vital Signs Temp 98.7 F 11/29/17 19:33 Pulse 89 11/30/17 02:03 Resp 12 11/30/17 02:03 BP 129/95 11/30/17 02:03 Pulse Ox 95 11/30/17 02:03 Psychiatric Lab Panel: Drug Levels and Toxicity 11/29/17 11/29/17 20:11 20:41 Urine Opiates Screen Negative Acetaminophen < 10 L Ur Barbiturates Screen Negative Ur Phencyclidine Scrn Negative Ur Amphetamines Screen Negative U Benzodiazepines Scrn Negative Urine Cocaine Screen Negative U Marijuana (THC) Screen Negative Ethyl Alcohol < 10 Abnormal Labs: Abnormal lab results MPV 8.6 fL (9.4-12.4) L 11/29/17 20:11 Sodium 135 mEq/L (136-145) L 11/30/17 00:18 Carbon Dioxide 20 mEq/L (23-29) L 11/30/17 00:18 BUN 28 mg/dL (6-20) H 11/30/17 00:18 Creatinine 1.26 mg/dL (0.60-1.20) H 11/30/17 00:18 Est GFR ( Amer) 55 (> 60) L 11/30/17 00:18 Est GFR (Non-Af Amer) 45 (> 60) L 11/30/17 00:18 AST 43 Units/L (13-39) H 11/29/17 20:11 Serum Total Protein 6.3 g/dL (6.4-8.9) L 11/29/17 20:11 Urine Protein 30 mg/dL (Neg-Trace) H 11/29/17 20:41 Urine Ketones Trace mg/dL (Negative) H 11/29/17 20:41 Urine Bilirubin Small (Negative) H 11/29/17 20:41 Ur Leukocyte Esterase Moderate (Negative) H 11/29/17 20:41 Urine Microscopic RBC 5-15 per hpf (0-3) H 11/29/17 20:41 Urine Microscopic WBC 50-100 per hpf (0-3) H 11/29/17 20:41 Ur Squamous Epith Cells Many per lpf (None-Few) H 11/29/17 20:41 Urine Bacteria Moderate per hpf (None-Few) H 11/29/17 20:41 Hyaline Casts Many per lpf (None-Few) H 11/29/17 20:41 Urine Mucus Moderate (Few) H 11/29/17 20:41 Salicylates < 2.5 mg/dL (15.0-30.0) L 11/29/17 20:11 Acetaminophen < 10 mcg/mL (10-20) L 11/29/17 20:11 Statement of Medical Clearance: I have evaluated the patient, reviewed diagnostic information, and certify that the patient's medical condition is sufficiently stable that transfer to the psychiatric unit does not pose a significant risk of deterioration.
[2017-11-29 20:34] LABS: Basophils % 0.5 %; Eosinophils # 0.2 K/mcL (0.0-0.6); Eosinophils % 2.9 %; Hematocrit 36.3 % (35.3-44.9); Hemoglobin 12.9 g/dL (11.5-15.4); Immature Granulocytes % 1.1 % (0-4); Lymphocytes # 2.8 K/mcL (0.6-4.6); Lymphocytes % 34.8 %; Mean Corpuscular HGB Conc 35.5 g/dL (31.6-35.5); Mean Corpuscular Hemoglobin 31.1 pg (28.0-33.3); Mean Corpuscular Volume 87.5 fL (83.0-100.0); Mean Platelet Volume 8.6 fL (9.4-12.4); Monocytes % 12.7 %; Neutrophils # 3.8 K/mcL (1.6-8.9); Platelet Count 228 K/mcL (140-400); Red Blood Count 4.15 M/mcL (3.82-4.97); Red Cell Distribution Width 13.9 % (11.5-14.5)
[2017-11-29 21:04] LABS: Bilirubin,Urine Small (Negative); Blood,Urine Negative (Negative); Clarity,Urine Clear (Clear); Color,Urine Dark Yellow (Yellow); Glucose,Urine (UA) Normal (Normal); Ketones,Urine Trace mg/dL (Negative); Leukocyte Esterase,Urine Moderate (Negative); Nitrite,Urine Negative (Negative); Protein,Urine 30 mg/dL (Neg-Trace); Specific Gravity,Urine 1.015 (1.010-1.025); Urobilinogen,Urine Normal (Normal)
[2017-11-29 21:05] LABS: Squamous Epithelial Cell,Urine Many per lpf (None-Few); WBC,Urine 50-100 per hpf (0-3)
[2017-11-29 21:07] LABS: Amphetamine Screen,Urine Negative ng/mL (Cutoff=1000); Barbiturate Screen,Urine Negative ng/mL (Cutoff=200); Benzodiazepines Screen,Urine Negative ng/mL (Cutoff=200); Cannabinoid Screen,Urine Negative ng/mL (Cutoff = 50); Cocaine Screen,Urine Negative ng/mL (Cutoff= 300); Opiate Screen,Urine Negative ng/mL (Cutoff=300); Phencyclidine Screen,Urine Negative ng/mL (Cutoff=25)
[2017-11-29 21:23] LABS: Hyaline Casts,Urine Many per lpf (None-Few); Mucus,Urine Moderate (Few); Renal Epithelial Cells,Urine Few per hpf (None-Few)
[2017-11-29 21:24] LABS: Bacteria,Urine Moderate per hpf (None-Few)
[2017-11-29 21:45] LABS: Acetaminophen < 10 mcg/mL (10-20); BUN/Creatinine Ratio 17 (6-26); Blood Urea Nitrogen 28 mg/dL (6-20); Calcium 9.2 mg/dL (8.6-10.3); Carbon Dioxide 19 mEq/L (23-29); Chloride 102 mEq/L (98-107); Ethanol < 10 mg/dL (Less than 10); Glucose 97 mg/dL (70-105); Osmolality,Calculated 283 (280-300); Potassium 4.6 mEq/L (3.5-5.1); Salicylate < 2.5 mg/dL (15.0-30.0); Sodium 134 mEq/L (136-145); eGFR For Non-African Americans 33 (> 60)
[2017-11-29] MEDS: 0.9 % Sodium Chloride 1,000 ML IVC SCH (22:20)
[2017-11-29 22:39] LABS: Sodium, Urine 31.4 mEq/L
[2017-11-29] MEDS ORDERED: 0.9 % Sodium Chloride 1,000 ML IVC ONE (23:15)
[2017-11-29 23:20] LABS: Alanine Aminotransferase 25 Units/L (7-52); Albumin 3.9 g/dL (3.5-5.7); Albumin/Globulin Ratio 1.6 (1.1-2.2); Alkaline Phosphatase 61 Units/L (34-104); Aspartate Amino Transferase 43 Units/L (13-39); Bilirubin,Direct 0.1 mg/dL (0.0-0.2); Bilirubin,Indirect 0.3 mg/dL (0.0-1.2); Bilirubin,Total 0.4 mg/dL (0.3-1.0); Globulin 2.4 g/dL (2.4-3.5); Total Protein 6.3 g/dL (6.4-8.9)
[2017-11-30 00:45] LABS: Calcium 8.6 mg/dL (8.6-10.3)
[2017-11-30] MEDS ORDERED: Ondansetron ODT 4 MG TAB.RAPDIS SL ONE (00:58)
[2017-11-30] MEDS: 0.9 % Sodium Chloride 1,000 ML IVC SCH (02:02)
--- NOTE | 2017-11-30 04:41 | Emergency Department Note ---
Disposition Clinical Impression: Dehydration Suicidal behavior Qualifiers: Attempted self-injury: without attempted self-injury Qualified Code(s): R46.89 - Other symptoms and signs involving appearance and behavior Disposition: Admitted As Inpatient Condition: Fair General Adult HPI - General Chief complaint: ED Psychiatric Symptoms Stated complaint: anxiety so bad she could harm herself Time Seen by Provider: 11/29/17 19:40 Source: patient, family Mode of arrival: ambulatory Limitations: altered mental status, other (Patient sitting the bed, moving anxiously with pressured speech, and disorganized thoughts, although cooperative and answering questions) Nursing Notes Reviewed: Yes Vital Signs Reviewed: Yes - History of Present Illness Pain Scale: 0 - Related Data Home Medications Medication Instructions Recorded Confirmed Amlodipine Besylate 10 mg PO DAILY 12/10/15 11/30/17 Albuterol Sulfate [Albuterol 2 puff IH Q6HR PRN 04/02/16 11/30/17 Inhaler] Buspirone HCl [Buspar] 30 mg PO TID 01/08/17 11/30/17 Fluticasone Propionate Nasal 50 mcg NS BID PRN 01/08/17 11/30/17 [Flonase] Losartan Potassium [Cozaar] 50 mg PO DAILY 01/08/17 11/30/17 cloNIDine HCl [CloNIDine HCl] 0.1 mg PO HS 01/08/17 11/30/17 Fluticasone/Salmeterol [Advair Hfa 2 puff IH BID 04/19/17 11/30/17 115-21 Mcg Inhaler] Previous Rx's Medication Instructions Recorded Ipratropium/Albuterol Neb [Duoneb] 3 ml IH Q6H PRN #30 vial.neb 02/12/17 traZODone [TraZODone] 100 mg PO HS #18 tablet 04/23/17 Allergies Allergy/AdvReac Type Severity Reaction Status Date / Time codeine Allergy Unresponsiv Verified 11/23/17 15:42 e risperidone [From Risperdal] Allergy Anaphylaxis Verified 11/23/17 15:42 Constitutional: Denies: fever, chills ENT ED: Denies: congestion Cardiovascular: Denies: chest pain, palpitations, dyspnea on exertion, syncope Respiratory: Denies: cough, dyspnea, wheezes Gastrointestinal: Reports: nausea. Denies: abdominal pain, vomiting Genitourinary: Denies: urgency, dysuria Musculoskeletal: Denies: back pain Integumentary: Denies: rash Neurological: Reports: confusion. Denies: headache, weakness, numbness, paresthesias Psychiatric: Reports: anxiety, depression, suicidal thoughts, auditory hallucinations, visual hallucinations. Denies: homicidal thoughts Past Medical History - Past Medical History Medical history: Reports: other Surgical history: Reports: cholecystectomy, other, hysterectomy, Psychiatric history: Reports: previous psychiatric hospitalization, bipolar, depression, PTSD, prior suicide attempt ROUND UP RING HAND history: Reports: dysfunctional uterine bleed, uterine fibroids - Social History Smoking Status: Never smoker Smokeless Tobacco Status: No Alcohol use: Reports: none Drug use: Reports: none Physical Exam - General Limitations: altered mental status, other (Patient sitting the bed, moving anxiously with pressured speech, and disorganized thoughts, although cooperative and answering questions) General appearance: alert, anxious Course Vital Signs Temperature 98.7 F 11/29/17 19:33 Pulse Rate 82 11/29/17 19:33 Respiratory Rate 12 11/29/17 19:33 Blood Pressure 140/112 11/29/17 19:33 O2 Sat by Pulse Oximetry 97 11/29/17 19:33 Temperature 98.7 F 11/29/17 19:33 Pulse Rate 89 11/30/17 02:03 Respiratory Rate 12 11/30/17 02:03 Blood Pressure 129/95 11/30/17 02:03 O2 Sat by Pulse Oximetry 95 11/30/17 02:03 Oxygen Delivery Oxygen Delivery Room Air Medical Decision Making - Lab Data Lab results reviewed: Yes I reviewed the patient's lab results. Result diagrams: 11/29/17 20:11 11/30/17 00:18 Lab Results 11/29/17 11/29/17 11/29/17 Range/Units 20:11 20:11 20:41 WBC 7.9 (4.3-11.1) K/mcL RBC 4.15 (3.82-4.97) M/mcL Hgb 12.9 (11.5-15.4) g/dL Hct 36.3 (35.3-44.9) % MCV 87.5 (83.0-100.0) fL MCH 31.1 (28.0-33.3) pg MCHC 35.5 (31.6-35.5) g/dL RDW 13.9 (11.5-14.5) % Plt Count 228 (140-400) K/mcL MPV 8.6 L (9.4-12.4) fL Immature Gran % 1.1 (0-4) % Seg Neutrophils % 48.0 % Lymphocytes % 34.8 % Monocytes % 12.7 % Eosinophils % 2.9 % Basophils % 0.5 % Neutrophils # 3.8 (1.6-8.9) K/mcL Lymphocytes # 2.8 (0.6-4.6) K/mcL Monocytes # 1.0 (0.0-1.3) K/mcL Eosinophils # 0.2 (0.0-0.6) K/mcL Basophils # 0.0 (0.0-0.2) K/mcL Sodium 134 L (136-145) mEq/L Potassium 4.6 (3.5-5.1) mEq/L Chloride 102 (98-107) mEq/L Carbon Dioxide 19 L (23-29) mEq/L BUN 28 H (6-20) mg/dL Creatinine 1.67 H (0.60-1.20) mg/dL Est GFR ( Amer) 40 L (> 60) Est GFR (Non-Af Amer) 33 L (> 60) BUN/Creatinine Ratio 17 (6-26) Glucose 97 (70-105) mg/dL Calculated Osmolality 283 (280-300) Lactic Acid (0.5-2.2) mmol/L Calcium 9.2 (8.6-10.3) mg/dL Total Bilirubin 0.4 (0.3-1.0) mg/dL Direct Bilirubin 0.1 (0.0-0.2) mg/dL Indirect Bilirubin 0.3 (0.0-1.2) mg/dL AST 43 H (13-39) Units/L ALT 25 (7-52) Units/L Alkaline Phosphatase 61 (34-104) Units/L Serum Total Protein 6.3 L (6.4-8.9) g/dL Albumin 3.9 (3.5-5.7) g/dL Globulin 2.4 (2.4-3.5) g/dL Albumin/Globulin Ratio 1.6 (1.1-2.2) Urine Color Dark Yellow (Yellow) Urine Clarity Clear (Clear) Urine pH 7.0 (5.0-8.0) pH Units Ur Specific [place] 1.015 (1.010-1.025) Urine Protein 30 H (Neg-Trace) mg/dL Urine Glucose (UA) Normal (Normal) mg/dL Urine Ketones Trace H (Negative) mg/dL Urine Blood Negative (Negative) Urine Nitrite Negative (Negative) Urine Bilirubin Small H (Negative) Urine Urobilinogen Normal (Normal) mg/dL Ur Leukocyte Esterase Moderate H (Negative) Urine Microscopic RBC 5-15 H (0-3) per hpf Urine Microscopic WBC 50-100 H (0-3) per hpf Ur Squamous Epith Cells Many H (None-Few) per lpf Ur Renal Epithelial Cell Few (None-Few) per hpf Urine Bacteria Moderate H (None-Few) per hpf Hyaline Casts Many H (None-Few) per lpf Urine Mucus Moderate H (Few) Urine Creatinine mg/dL Urine Sodium mEq/L Salicylates < 2.5 L (15.0-30.0) mg/dL Urine Opiates Screen (Rgricy=435) ng/mL Acetaminophen < 10 L (10-20) mcg/mL Ur Barbiturates Screen (Pvdekj=689) ng/mL Ur Phencyclidine Scrn (Cutoff=25) ng/mL Ur Amphetamines Screen (Tkxshi=2642) ng/mL U Benzodiazepines Scrn (Sijser=295) ng/mL Urine Cocaine Screen (Cutoff= 300) ng/mL U Marijuana (THC) Screen (Cutoff = 50) ng/mL Ur Drug Screen Interp Ethyl Alcohol < 10 (Less than 10) mg/dL 11/29/17 11/29/17 11/29/17 Range/Units 20:41 22:21 22:22 WBC (4.3-11.1) K/mcL RBC (3.82-4.97) M/mcL Hgb (11.5-15.4) g/dL Hct (35.3-44.9) % MCV (83.0-100.0) fL MCH (28.0-33.3) pg MCHC (31.6-35.5) g/dL RDW (11.5-14.5) % Plt Count (140-400) K/mcL MPV (9.4-12.4) fL Immature Gran % (0-4) % Seg Neutrophils % % Lymphocytes % % Monocytes % % Eosinophils % % Basophils % % Neutrophils # (1.6-8.9) K/mcL Lymphocytes # (0.6-4.6) K/mcL Monocytes # (0.0-1.3) K/mcL Eosinophils # (0.0-0.6) K/mcL Basophils # (0.0-0.2) K/mcL Sodium (136-145) mEq/L Potassium (3.5-5.1) mEq/L Chloride (98-107) mEq/L Carbon Dioxide (23-29) mEq/L BUN (6-20) mg/dL Creatinine (0.60-1.20) mg/dL Est GFR ( Amer) (> 60) Est GFR (Non-Af Amer) (> 60) BUN/Creatinine Ratio (6-26) Glucose (70-105) mg/dL Calculated Osmolality (280-300) Lactic Acid 1.3 (0.5-2.2) mmol/L Calcium (8.6-10.3) mg/dL Total Bilirubin (0.3-1.0) mg/dL Direct Bilirubin (0.0-0.2) mg/dL Indirect Bilirubin (0.0-1.2) mg/dL AST (13-39) Units/L ALT (7-52) Units/L Alkaline Phosphatase (34-104) Units/L Serum Total Protein (6.4-8.9) g/dL Albumin (3.5-5.7) g/dL Globulin (2.4-3.5) g/dL Albumin/Globulin Ratio (1.1-2.2) Urine Color (Yellow) Urine Clarity (Clear) Urine pH (5.0-8.0) pH Units Ur Specific [place] (1.010-1.025) Urine Protein (Neg-Trace) mg/dL Urine Glucose (UA) (Normal) mg/dL Urine Ketones (Negative) mg/dL Urine Blood (Negative) Urine Nitrite (Negative) Urine Bilirubin (Negative) Urine Urobilinogen (Normal) mg/dL Ur Leukocyte Esterase (Negative) Urine Microscopic RBC (0-3) per hpf Urine Microscopic WBC (0-3) per hpf Ur Squamous Epith Cells (None-Few) per lpf Ur Renal Epithelial Cell (None-Few) per hpf Urine Bacteria (None-Few) per hpf Hyaline Casts (None-Few) per lpf Urine Mucus (Few) Urine Creatinine 232 mg/dL Urine Sodium 31.4 mEq/L Salicylates (15.0-30.0) mg/dL Urine Opiates Screen Negative (Xvkuse=988) ng/mL Acetaminophen (10-20) mcg/mL Ur Barbiturates Screen Negative (Edplty=984) ng/mL Ur Phencyclidine Scrn Negative (Cutoff=25) ng/mL Ur Amphetamines Screen Negative (Qyhdec=8220) ng/mL U Benzodiazepines Scrn Negative (Cgpxnq=271) ng/mL Urine Cocaine Screen Negative (Cutoff= 300) ng/mL U Marijuana (THC) Screen Negative (Cutoff = 50) ng/mL Ur Drug Screen Interp See Below Ethyl Alcohol (Less than 10) mg/dL 11/30/17 Range/Units 00:18 WBC (4.3-11.1) K/mcL RBC (3.82-4.97) M/mcL Hgb (11.5-15.4) g/dL Hct (35.3-44.9) % MCV (83.0-100.0) fL MCH (28.0-33.3) pg MCHC (31.6-35.5) g/dL RDW (11.5-14.5) % Plt Count (140-400) K/mcL MPV (9.4-12.4) fL Immature Gran % (0-4) % Seg Neutrophils % % Lymphocytes % % Monocytes % % Eosinophils % % Basophils % % Neutrophils # (1.6-8.9) K/mcL Lymphocytes # (0.6-4.6) K/mcL Monocytes # (0.0-1.3) K/mcL Eosinophils # (0.0-0.6) K/mcL Basophils # (0.0-0.2) K/mcL Sodium 135 L (136-145) mEq/L Potassium 4.0 (3.5-5.1) mEq/L Chloride 104 (98-107) mEq/L Carbon Dioxide 20 L (23-29) mEq/L BUN 28 H (6-20) mg/dL Creatinine 1.26 H (0.60-1.20) mg/dL Est GFR ( Amer) 55 L (> 60) Est GFR (Non-Af Amer) 45 L (> 60) BUN/Creatinine Ratio 22 (6-26) Glucose 100 (70-105) mg/dL Calculated Osmolality 286 (280-300) Lactic Acid (0.5-2.2) mmol/L Calcium 8.6 (8.6-10.3) mg/dL Total Bilirubin (0.3-1.0) mg/dL Direct Bilirubin (0.0-0.2) mg/dL Indirect Bilirubin (0.0-1.2) mg/dL AST (13-39) Units/L ALT (7-52) Units/L Alkaline Phosphatase (34-104) Units/L Serum Total Protein (6.4-8.9) g/dL Albumin (3.5-5.7) g/dL Globulin (2.4-3.5) g/dL Albumin/Globulin Ratio (1.1-2.2) Urine Color (Yellow) Urine Clarity (Clear) Urine pH (5.0-8.0) pH Units Ur Specific [place] (1.010-1.025) Urine Protein (Neg-Trace) mg/dL Urine Glucose (UA) (Normal) mg/dL Urine Ketones (Negative) mg/dL Urine Blood (Negative) Urine Nitrite (Negative) Urine Bilirubin (Negative) Urine Urobilinogen (Normal) mg/dL Ur Leukocyte Esterase (Negative) Urine Microscopic RBC (0-3) per hpf Urine Microscopic WBC (0-3) per hpf Ur Squamous Epith Cells (None-Few) per lpf Ur Renal Epithelial Cell (None-Few) per hpf Urine Bacteria (None-Few) per hpf Hyaline Casts (None-Few) per lpf Urine Mucus (Few) Urine Creatinine mg/dL Urine Sodium mEq/L Salicylates (15.0-30.0) mg/dL Urine Opiates Screen (Vumoze=968) ng/mL Acetaminophen (10-20) mcg/mL Ur Barbiturates Screen (Wjpduk=064) ng/mL Ur Phencyclidine Scrn (Cutoff=25) ng/mL Ur Amphetamines Screen (Nmqzcy=7766) ng/mL U Benzodiazepines Scrn (Zuaekt=874) ng/mL Urine Cocaine Screen (Cutoff= 300) ng/mL U Marijuana (THC) Screen (Cutoff = 50) ng/mL Ur Drug Screen Interp Ethyl Alcohol (Less than 10) mg/dL Attestation Statement - Attestation Attestation: I, Tip Granda MD, personally evaluated this patient and discussed their management with the resident physician. I reviewed the resident's note and agree with the documented findings, medical decision making, and plan of care. 47-year-old female with history of multiple psychiatric issues presents to the emergency department complaining of suicidal ideation. Patient states she has this all the time but is been worse recently. No specific plan. She complains of just feeling particularly ill for the last several days. She has had nausea but no actual vomiting. She complains of anorexia and not eating or drinking much. On examination patient is a well-developed obese female in no acute distress. She is alert and oriented 3. There is no cyanosis or diaphoresis. Breath sounds are clear and equal bilaterally. Heart regular rate and rhythm. Abdomen soft and nontender with normal bowel sounds. Labs reviewed. Acute kidney injury with elevated creatinine noted. This is likely dehydration due to her decreased oral intake. Patient did receive 2 L of normal saline with significant improvement in her creatinine level. Patient was medically cleared for psychiatric evaluation. [address] department was consulted and evaluated patient in the emergency department and patient is being admitted to the [address] psychiatric unit.
[2017-11-30] MEDS ORDERED: Haloperidol Lactate 5 MG/ML VIAL IM PRN (04:49)
[2017-11-30] MEDS ORDERED: Mag Hydrox/Al Hydrox/Simeth 30 ML UDC PO PRN (04:49)
[2017-11-30] MEDS ORDERED: traZODone 50 MG TABLET PO PRN (04:49)
[2017-11-30] MEDS ORDERED: *HR* LORazepam 1 MG TABLET PO PRN (04:49)
[2017-11-30] MEDS ORDERED: *HR* LORazepam 2 MG/ML VIAL IM PRN (04:49)
--- NOTE | 2017-11-30 10:22 | Psychiatry History & Physical ---
Date of Encounter: 11/30/17 Time of Encounter: 10:18 History of Present Illness Patient Stated Chief Complaint: suicidal ideation Medicare Admission Attestation: For traditional Medicare patients the provided hospital inpatient services are reasonable and necessary and in the case of services not specified as inpatient -only under 42 CFR 419.22 (n), that they are appropriately provided as inpatient services in accordance 42 CFR 412.3. For Critical Access Hospital the patient may reasonably be expected to be discharged or transferred to a hospital within 96 hours after admission to the Critical Access Hospital. Admitted From: Home Plans for Post Hospital Care: Home History of Present Illness: Ms. Mckeon is a 47 year old female who was admitted secondary to SI. Known to staff here. Multiple prior hospitalizations. Per client she is diagnosed with Bipolar Disorder. Seems lower functioning. Follows with [facility] for treatment. Currently coming off of Adipex. Has not had it in four days. Client states it was prescribed to her and she took it like she should but had a bad reaction. Discussed dangers of this medication, particularly with mental health issues. Client also has an infection going on. Eye is red with discharge. Other stressors include conflict with family and difficulty living alone in an apartment. Moved into apartment six months ago and likely not taking care of herself like she should. No AOD issues. Home meds do not include an antidepressant. Discussed options and will start a low dose of Lexapro. Past Med Surg Social Fam HX - Past Medical History Medical history: asthma - Past Psychiatric History Psychiatric history: Reports: anxiety, bipolar, depression, prior suicide attempt, previous psychiatric hospitalization Family psychiatric history: Unknown Family History of Suicide: Completed Family Suicide History Details: brother - Past Surgical History Surgical History: cholecystectomy, other, hysterectomy, - Social History Smoking Status: Never smoker Smokeless Tobacco Status: No Alcohol use: none Drug use: none - Family History Grandfather Living Status: Still Living Hx Family Endocrine Disorder: Yes (DM) Father Living Status: Still Living Hx Family Cardiac Disorders: Yes (HTN) Mother Living Status: Still Living Hx Family Cardiac Disorders: Yes (HTN) Hx Family Respiratory Disorders: No Hx Family Cancer: No Hx Family GI Disorders: No Hx Family Endocrine Disorder: No Hx Family Neuromuscular Disorders: No Hx Family Neurologic Disorders: No Hx Family HEENT Disorders: No Hx Family Autoimmune Disorders: No Medications & Allergies Amlodipine Besylate 10 mg PO DAILY 12/10/15 [History] Albuterol Sulfate [Albuterol Inhaler] 2 puff IH Q6HR PRN 04/02/16 [History] Buspirone HCl [Buspar] 30 mg PO TID 01/08/17 [History] Fluticasone Propionate Nasal [Flonase] 50 mcg NS BID PRN 01/08/17 [History] Losartan Potassium [Cozaar] 50 mg PO DAILY 01/08/17 [History] cloNIDine HCl [CloNIDine HCl] 0.1 mg PO HS 01/08/17 [History] Ipratropium/Albuterol Neb [Duoneb] 3 ml IH Q6H PRN #30 vial.neb 02/12/17 [Rx] Fluticasone/Salmeterol [Advair Hfa 115-21 Mcg Inhaler] 2 puff IH BID 04/19/17 [ History] traZODone [TraZODone] 100 mg PO HS #18 tablet 04/23/17 [Rx] Erythromycin OPTH Oint 1 appl LEFT EYE Q6H 7 Days #1 tube 11/30/17 [Rx] 3 Allergy/AdvReac Type Severity Reaction Status Date / Time codeine Allergy Unresponsiv Verified 11/23/17 15:42 e risperidone [From Risperdal] Allergy Anaphylaxis Verified 11/23/17 15:42 Review of Systems Constitutional: Denies: fever, chills, weakness, weight change Eyes: Reports: eye discharge Ears, Nose, Throat: Denies: ear pain, throat pain, dental pain, hearing loss, congestion Cardiovascular: Denies: chest pain, palpitations, dyspnea on exertion Respiratory: Reports: cough Gastrointestinal: Denies: abdominal pain, nausea, vomiting, diarrhea, constipation Genitourinary female: Denies: urgency, dysuria, frequency, abnormal menses, dyspareunia Musculoskeletal: Denies: joint swelling, joint pain Integumentary: Denies: rash, lesions, pruritus Neurological: Denies: headache, weakness, numbness, memory loss Endocrine: Denies: fatigue, heat or cold intolerance Hematologic/Lymphatic: Denies: easy bruising, lymphadenopathy Allergic/Immunologic: Denies: urticaria, itchy eyes Exam - HEENT Head exam IM: Present: atraumatic Eye exam IM: Present: conjunctival injection ENT exam IM: Present: mucous membranes moist - Neurological Neurological exam: Present: CN II-XII intact - Respiratory Respiratory exam IM: Present: rhonchi - GI/Abdominal GI/Abdominal exam IM: Present: normal bowel sounds, soft. Absent: tenderness - Extremities Extremities exam IM: Present: full ROM - Skin Skin exam IM: Present: dry, warm - Constitutional Vitals: Temp Pulse Resp BP Pulse Ox 96.8 F L 79 20 130/93 98 11/30/17 06:58 11/30/17 06:58 11/30/17 06:58 11/30/17 06:58 11/30/17 05:53 General appearance: obese - Musculoskeletal Gait: normal Station: relaxed Strength & Tone: normal for patient - Psychiatric Patient Orientation: Yes Person, Yes Time, Yes Place Level of alertness: Alert Behavior: calm, cooperative Psychomotor activity: Increased Eye Contact: Maintains Eye Contact Mood Description: Depressed Affect description: congruent with mood Speech Volume: Normal Speech pattern: normal rate, normal rhythm, normal tone, fluent, spontaneous Language & Vocabulary: consistent with education Thought Process: Linear Thought Content: Yes Suicidal ideation, No Homicidal ideation, No Overt delusions Perceptual Disturbances: No Auditory hallucinations, No Visual hallucinations Attention Span Ability: Capable of Focused Attention Memory Description: Grossly Intact Patient Reliability: Reliable Historian Fund of knowledge: Yes abstraction ability, Yes aware of current events Intelligence Estimate: Below Average Judgment: Limited Insight: Partial Results - Labs Labs: Laboratory Last Values WBC 7.9 K/mcL (4.3-11.1) 11/29/17 20:11 RBC 4.15 M/mcL (3.82-4.97) 11/29/17 20:11 Hgb 12.9 g/dL (11.5-15.4) 11/29/17 20:11 Hct 36.3 % (35.3-44.9) 11/29/17 20:11 MCV 87.5 fL (83.0-100.0) 11/29/17 20:11 MCH 31.1 pg (28.0-33.3) 11/29/17 20:11 MCHC 35.5 g/dL (31.6-35.5) 11/29/17 20:11 RDW 13.9 % (11.5-14.5) 11/29/17 20:11 Plt Count 228 K/mcL (140-400) 11/29/17 20:11 MPV 8.6 fL (9.4-12.4) L 11/29/17 20:11 Immature Gran % 1.1 % (0-4) 11/29/17 20:11 Seg Neutrophils % 48.0 % 11/29/17 20:11 Lymphocytes % 34.8 % 11/29/17 20:11 Monocytes % 12.7 % 11/29/17 20:11 Eosinophils % 2.9 % 11/29/17 20:11 Basophils % 0.5 % 11/29/17 20:11 Neutrophils # 3.8 K/mcL (1.6-8.9) 11/29/17 20:11 Lymphocytes # 2.8 K/mcL (0.6-4.6) 11/29/17 20:11 Monocytes # 1.0 K/mcL (0.0-1.3) 11/29/17 20:11 Eosinophils # 0.2 K/mcL (0.0-0.6) 11/29/17 20:11 Basophils # 0.0 K/mcL (0.0-0.2) 11/29/17 20:11 Sodium 135 mEq/L (136-145) L 11/30/17 00:18 Potassium 4.0 mEq/L (3.5-5.1) 11/30/17 00:18 Chloride 104 mEq/L (98-107) 11/30/17 00:18 Carbon Dioxide 20 mEq/L (23-29) L 11/30/17 00:18 BUN 28 mg/dL (6-20) H 11/30/17 00:18 Creatinine 1.26 mg/dL (0.60-1.20) H 11/30/17 00:18 Est GFR ( Amer) 55 (> 60) L 11/30/17 00:18 Est GFR (Non-Af Amer) 45 (> 60) L 11/30/17 00:18 BUN/Creatinine Ratio 22 (6-26) 11/30/17 00:18 Glucose 100 mg/dL (70-105) 11/30/17 00:18 Calculated Osmolality 286 (280-300) 11/30/17 00:18 Lactic Acid 1.3 mmol/L (0.5-2.2) 11/29/17 22:22 Calcium 8.6 mg/dL (8.6-10.3) 11/30/17 00:18 Total Bilirubin 0.4 mg/dL (0.3-1.0) 11/29/17 20:11 Direct Bilirubin 0.1 mg/dL (0.0-0.2) 11/29/17 20:11 Indirect Bilirubin 0.3 mg/dL (0.0-1.2) 11/29/17 20:11 AST 43 Units/L (13-39) H 11/29/17 20:11 ALT 25 Units/L (7-52) 11/29/17 20:11 Alkaline Phosphatase 61 Units/L (34-104) 11/29/17 20:11 Serum Total Protein 6.3 g/dL (6.4-8.9) L 11/29/17 20:11 Albumin 3.9 g/dL (3.5-5.7) 11/29/17 20:11 Globulin 2.4 g/dL (2.4-3.5) 11/29/17 20:11 Albumin/Globulin Ratio 1.6 (1.1-2.2) 11/29/17 20:11 Urine Color Dark Yellow (Yellow) 11/29/17 20:41 Urine Clarity Clear (Clear) 11/29/17 20:41 Urine pH 7.0 pH Units (5.0-8.0) 11/29/17 20:41 Ur Specific [place] 1.015 (1.010-1.025) 11/29/17 20:41 Urine Protein 30 mg/dL (Neg-Trace) H 11/29/17 20:41 Urine Glucose (UA) Normal mg/dL (Normal) 11/29/17 20:41 Urine Ketones Trace mg/dL (Negative) H 11/29/17 20:41 Urine Blood Negative (Negative) 11/29/17 20:41 Urine Nitrite Negative (Negative) 11/29/17 20:41 Urine Bilirubin Small (Negative) H 11/29/17 20:41 Urine Urobilinogen Normal mg/dL (Normal) 11/29/17 20:41 Ur Leukocyte Esterase Moderate (Negative) H 11/29/17 20:41 Urine Microscopic RBC 5-15 per hpf (0-3) H 11/29/17 20:41 Urine Microscopic WBC 50-100 per hpf (0-3) H 11/29/17 20:41 Ur Squamous Epith Cells Many per lpf (None-Few) H 11/29/17 20:41 Ur Renal Epithelial Cell Few per hpf (None-Few) 11/29/17 20:41 Urine Bacteria Moderate per hpf (None-Few) H 11/29/17 20:41 Hyaline Casts Many per lpf (None-Few) H 11/29/17 20:41 Urine Mucus Moderate (Few) H 11/29/17 20:41 Urine Creatinine 232 mg/dL 11/29/17 22:21 Urine Sodium 31.4 mEq/L 11/29/17 22:21 Salicylates < 2.5 mg/dL (15.0-30.0) L 11/29/17 20:11 Urine Opiates Screen Negative ng/mL (Mhpwqn=803) 11/29/17 20:41 Acetaminophen < 10 mcg/mL (10-20) L 11/29/17 20:11 Ur Barbiturates Screen Negative ng/mL (Bywkpm=200) 11/29/17 20:41 Ur Phencyclidine Scrn Negative ng/mL (Cutoff=25) 11/29/17 20:41 Ur Amphetamines Screen Negative ng/mL (Uapnku=1735) 11/29/17 20:41 U Benzodiazepines Scrn Negative ng/mL (Axpvua=453) 11/29/17 20:41 Urine Cocaine Screen Negative ng/mL (Cutoff= 300) 11/29/17 20:41 U Marijuana (THC) Screen Negative ng/mL (Cutoff = 50) 11/29/17 20:41 Ur Drug Screen Interp See Below 11/29/17 20:41 Ethyl Alcohol < 10 mg/dL (Less than 10) 11/29/17 20:11 Assessment and Plan (1) Bipolar disorder current episode depressed Current visit: No Status: Acute Plan: Admit inpatient for safety and stabilization, Close observation, Suicide Precautions per unit protocol, Encourage participation in unit milieu, Group Therapy, Monitor sleep, Monitor appetite Risks, benefits, side effects, alternatives discussed w/pt: Yes Patient agreeable to treatment: Yes Plans for Post Hospital Care: Home Estimated Length of Stay (Days): 3 Qualifiers: Current episode severity: severe Psychotic features: without psychotic features Qualified Code(s): F31.4 - Bipolar disorder, current episode depressed, severe, without psychotic features
[2017-11-30] MEDS ORDERED: Fluticasone Propionate Nasal 50 MCG/SPRAY BOTTLE NS PRN (10:29)
[2017-11-30] MEDS ORDERED: Ipratropium/Albuterol Neb 3 ML IH PRN (10:29)
[2017-11-30] MEDS: Erythromycin OPTH Oint LEFT EYE SCH ×3 (11:58→20:34)
[2017-11-30] MEDS: amLODIPine 5 MG TABLET PO SCH (12:04)
[2017-11-30] MEDS: traZODone 50 MG TABLET PO SCH (20:34)
[2017-11-30] MEDS: cloNIDine HCl 0.1 MG TABLET PO SCH (20:34)
[2017-11-30] MEDS ORDERED: Budesonide/Formoterol 80/4.5 MDI IH SCH (21:00)
[2017-11-30] MEDS: Ibuprofen 400 MG TABLET PO PRN (22:49)
[2017-11-30] MEDS: hydrOXYzine pamoate 25 MG CAPSULE PO PRN (22:49)
[2017-12-01] MEDS: hydrOXYzine pamoate 25 MG CAPSULE PO PRN (02:31)
[2017-12-01] MEDS: amLODIPine 5 MG TABLET PO SCH (08:10)
[2017-12-01] MEDS: Erythromycin OPTH Oint LEFT EYE SCH ×3 (08:12→17:53)
[2017-12-01] MEDS: Budesonide/Formoterol 80/4.5 MDI IH SCH (09:18)
--- NOTE | 2017-12-01 12:06 | Psychiatry Progress Note ---
Date of Encounter: 12/01/17 Time of Encounter: 11:30 Subjective Interval history: Pt is a 47 yo, x1 currently seperated, with 2 daughters (19, 21) and disabled son (22), female, who presents for mood and depression. Pt noted that she feels she is improving slowly. Pt noted she is optimistic to return home with her boyfriend. Pt denied any side effects to current medications. Pt noted she felt safe and comfortable on the unit. Pt was in agreement with treatment plan. Pt noted that she is doing pretty good today. Pt noted she slept 5-6 hours yesterday during the day. Pt noted her appetite is better. Pt rated her depression a 10, on a scale of zero to ten with ten being the worst and zero being none. Pt rate her anxiety a 9, on the same scale. Pt denied any auditory or visual hallucinations. Pt denied any thoughts to harm anyone else. Pt noted passive suicidal ideations. Tobacco: Denies Alcohol: Denies Street: Denies Caffeine: Denies Pt denies any TBIs, Hep C, HIV or Seizures. AIMS=1 pt is currently shaking up limbs currently not on an antipsychotic Not TD noted 1.Interval hx 2.Continue current medications 3.Review current labs 4.Pt had an opportunity to ask questions and discuss current treatment plan. 5.Supportive therapy was provided 6.Pt encouraged to consider group or individual therapy 7.Pt was in agreement with treatment plan. 8.Pt was educated on the risks benefits and side effects of current medications. 9. Restart Depakote 500 mg PO BID for mood 10. Restart quetiapine 100 mg pO QHS for Mood. 11.Draw current labs, and titration labs for depakote Review of Systems Constitutional: Denies: fever, chills, weakness, weight change Eyes: Denies: eye pain, vision change Ears, Nose, Throat: Denies: ear pain, throat pain, dental pain, hearing loss, congestion Cardiovascular: Denies: chest pain, palpitations, dyspnea on exertion Respiratory: Denies: cough, dyspnea, wheezes Gastrointestinal: Denies: abdominal pain, nausea, vomiting, diarrhea, constipation Musculoskeletal: Denies: joint swelling, joint pain Neurological: Reports: other (b/l upper extremity tremmor noted.). Denies: headache, weakness, numbness, memory loss Results - Vital Signs Vital Signs: Temp Pulse Resp BP Pulse Ox 97.4 F L 78 16 132/103 95 12/01/17 09:00 12/01/17 09:00 12/01/17 09:00 12/01/17 09:00 12/01/17 03:55 Assessment and Plan (1) Bipolar 1 disorder Current visit: No Status: Acute Plan: Continue hospitalization, Close observation, Suicide Precautions per unit protocol, Encourage participation in unit milieu, Group Therapy, Monitor sleep, Monitor appetite Risks, benefits, side effects, alternatives discussed w/pt: Yes Patient agreeable to treatment: Yes (2) Post traumatic stress disorder (PTSD) Current visit: No Status: Chronic Plan: Continue hospitalization, Close observation, Suicide Precautions per unit protocol, Encourage participation in unit milieu, Group Therapy, Monitor sleep, Monitor appetite Risks, benefits, side effects, alternatives discussed w/pt: Yes Patient agreeable to treatment: Yes (3) Suicidal ideation Current visit: No Status: Acute Plan: Continue hospitalization, Close observation, Suicide Precautions per unit protocol, Encourage participation in unit milieu, Group Therapy, Monitor sleep, Monitor appetite Risks, benefits, side effects, alternatives discussed w/pt: Yes Patient agreeable to treatment: Yes (4) Acute anxiety Current visit: No Status: Acute Plan: Continue hospitalization, Close observation, Suicide Precautions per unit protocol, Encourage participation in unit milieu, Group Therapy, Monitor sleep, Monitor appetite Risks, benefits, side effects, alternatives discussed w/pt: Yes Patient agreeable to treatment: Yes Consult Discharge Plan - Plan Referrals: NONE,PCP [Primary Care Provider] - Prescriptions: Erythromycin OPTH Oint 1 appl LEFT EYE Q6H 7 Days #1 tube Psychiatry Exam - Constitutional Vitals: Temp Pulse Resp BP Pulse Ox 97.4 F L 78 16 132/103 95 12/01/17 09:00 12/01/17 09:00 12/01/17 09:00 12/01/17 09:00 12/01/17 03:55 General appearance: age & developmentally appropriate, well-groomed, well- nourished - Musculoskeletal Gait: normal Station: relaxed Strength & Tone: normal for patient - Psychiatric Patient Orientation: Yes Person, Yes Time, Yes Place Level of alertness: Alert Behavior: calm, cooperative Psychomotor activity: Agitated Eye Contact: Maintains Eye Contact Mood Description: Depressed Affect description: congruent with mood Speech Volume: Normal Speech pattern: normal tone, fluent, spontaneous, excessive Language & Vocabulary: consistent with education Thought Process: Linear, Goal Oriented Thought Content: Yes Suicidal ideation, No Homicidal ideation, No Overt delusions Perceptual Disturbances: No Auditory hallucinations, No Visual hallucinations Attention Span Ability: Capable of Focused Attention Memory Description: Grossly Intact Patient Reliability: Questionable Historian Fund of knowledge: Yes average Intelligence Estimate: Average Judgment: Limited Insight: Partial
[2017-12-01 14:40] LABS: Alanine Aminotransferase 23 Units/L (7-52); Albumin 4.1 g/dL (3.5-5.7); Albumin/Globulin Ratio 1.7 (1.1-2.2); Alkaline Phosphatase 58 Units/L (34-104); Aspartate Amino Transferase 26 Units/L (13-39); BUN/Creatinine Ratio 20 (6-26); Bilirubin,Total 0.3 mg/dL (0.3-1.0); Blood Urea Nitrogen 22 mg/dL (6-20); Calcium 9.5 mg/dL (8.6-10.3); Carbon Dioxide 25 mEq/L (23-29); Chloride 99 mEq/L (98-107); Globulin 2.4 g/dL (2.4-3.5); Glucose 127 mg/dL (70-105); Osmolality,Calculated 281 (280-300); Potassium 4.2 mEq/L (3.5-5.1); Sodium 133 mEq/L (136-145); Total Protein 6.5 g/dL (6.4-8.9); eGFR For Non-African Americans 52 (> 60)
[2017-12-01] MEDS: Ibuprofen 400 MG TABLET PO PRN (14:51)
[2017-12-01] MEDS: MOM Conc 10 ML UD.LIQ PO PRN (18:02)
[2017-12-01] MEDS: Polymyxn-B/Trimeth Opth Drops 10 ML BOTTLE LEFT EYE SCH ×2 (19:03→21:20)
[2017-12-01] MEDS: Divalproex (12 HR) 500 MG TABLET PO SCH (21:17)
[2017-12-01] MEDS: traZODone 50 MG TABLET PO SCH (21:17)
[2017-12-01] MEDS: cloNIDine HCl 0.1 MG TABLET PO SCH (21:20)
[2017-12-02] MEDS: Budesonide/Formoterol 80/4.5 MDI IH SCH ×3 (04:48→20:50)
[2017-12-02] MEDS: Divalproex (12 HR) 500 MG TABLET PO SCH ×2 (08:44→20:50)
[2017-12-02] MEDS: amLODIPine 5 MG TABLET PO SCH (08:44)
[2017-12-02] MEDS: Polymyxn-B/Trimeth Opth Drops 10 ML BOTTLE LEFT EYE SCH ×4 (08:45→20:48)
[2017-12-02] MEDS: MOM Conc 10 ML UD.LIQ PO PRN (08:45)
--- NOTE | 2017-12-02 10:53 | Psychiatry Progress Note ---
Date of Encounter: 12/02/17 Time of Encounter: 10:40 Subjective Interval history: Pt is a 47 yo, x1 currently seperated, with 2 daughters (19, 21) and disabled son (22), female, who presents for mood and depression. Pt noted that she feels she is improving slowly. Pt noted she is optimistic to "just get better doc." Pt denied any side effects to current medications. Pt noted she felt safe and comfortable on the unit. Pt was in agreement with treatment plan. Pt noted that she is doing pretty good today. Pt noted she "slept 10 hours really good last night. Pt noted her appetite is better. Pt rated her depression a 7, on a scale of zero to ten with ten being the worst and zero being none. Pt rate her anxiety a 7, on the same scale. Pt denied any auditory or visual hallucinations. Pt denied any thoughts to harm anyone else. Pt noted passive suicidal ideations. Tobacco: Denies Alcohol: Denies Street: Denies Caffeine: Denies Pt denies any TBIs, Hep C, HIV or Seizures. AIMS=1 pt is currently shaking up limbs currently not on an antipsychotic Not TD noted 1.Interval hx 2.Continue current medications 3.Review current labs 4.Pt had an opportunity to ask questions and discuss current treatment plan. 5.Supportive therapy was provided 6.Pt encouraged to consider group or individual therapy 7.Pt was in agreement with treatment plan. 8.Pt was educated on the risks benefits and side effects of current medications. 9. Restart Depakote 500 mg PO BID for mood 10. Increase quetiapine to 150 mg pO QHS for Mood. 11.Draw current labs, and titration labs for depakote Review of Systems Constitutional: Denies: fever, chills, weakness, weight change Eyes: Denies: eye pain, vision change Ears, Nose, Throat: Denies: ear pain, throat pain, dental pain, hearing loss, congestion Cardiovascular: Denies: chest pain, palpitations, dyspnea on exertion Respiratory: Denies: cough, dyspnea, wheezes Gastrointestinal: Denies: abdominal pain, nausea, vomiting, diarrhea, constipation Musculoskeletal: Denies: joint swelling, joint pain Neurological: Denies: headache, weakness, numbness, memory loss Results - Vital Signs Vital Signs: Temp Pulse Resp BP Pulse Ox 98.6 F 62 16 119/68 95 12/02/17 09:00 12/02/17 09:00 12/02/17 09:00 12/02/17 09:00 12/01/17 03:55 - Labs Labs: Laboratory Results - last 24 hr 12/01/17 12:21 Sodium 133 L Potassium 4.2 Chloride 99 Carbon Dioxide 25 BUN 22 H Creatinine 1.12 Est GFR ( Amer) > 60 Est GFR (Non-Af Amer) 52 L BUN/Creatinine Ratio 20 Glucose 127 H Calculated Osmolality 281 Calcium 9.5 Total Bilirubin 0.3 AST 26 ALT 23 Alkaline Phosphatase 58 Serum Total Protein 6.5 Albumin 4.1 Globulin 2.4 Albumin/Globulin Ratio 1.7 Assessment and Plan (1) Bipolar 1 disorder Current visit: No Status: Acute Plan: Continue hospitalization, Close observation, Suicide Precautions per unit protocol, Encourage participation in unit milieu, Group Therapy, Monitor sleep, Monitor appetite Risks, benefits, side effects, alternatives discussed w/pt: Yes Patient agreeable to treatment: Yes (2) Post traumatic stress disorder (PTSD) Current visit: No Status: Chronic Plan: Continue hospitalization, Close observation, Suicide Precautions per unit protocol, Encourage participation in unit milieu, Group Therapy, Monitor sleep, Monitor appetite Risks, benefits, side effects, alternatives discussed w/pt: Yes Patient agreeable to treatment: Yes (3) Suicidal ideation Current visit: No Status: Acute Plan: Continue hospitalization, Close observation, Suicide Precautions per unit protocol, Encourage participation in unit milieu, Group Therapy, Monitor sleep, Monitor appetite Risks, benefits, side effects, alternatives discussed w/pt: Yes Patient agreeable to treatment: Yes (4) Acute anxiety Current visit: No Status: Acute Plan: Continue hospitalization, Close observation, Suicide Precautions per unit protocol, Encourage participation in unit milieu, Group Therapy, Monitor sleep, Monitor appetite Risks, benefits, side effects, alternatives discussed w/pt: Yes Patient agreeable to treatment: Yes Consult Discharge Plan - Plan Referrals: [facility] [Outside] - 12/10/17 1:00 pm (The above appoitment is with Marimar Holder for outpatient mental health counseling services.) [facility] [Outside] - 01/22/18 3:30 pm (The above appointment is with Stephanie Hartley for outpatient psychiatric assessment and medication management services. The above appointment reflects first availability. You may contact the office regularly to check for cancellations that may allow you to be seen sooner.) Prescriptions: Erythromycin OPTH Oint 1 appl LEFT EYE Q6H 7 Days #1 tube Psychiatry Exam - Constitutional Vitals: Temp Pulse Resp BP Pulse Ox 98.6 F 62 16 119/68 95 12/02/17 09:00 12/02/17 09:00 12/02/17 09:00 12/02/17 09:00 12/01/17 03:55 General appearance: age & developmentally appropriate, well-groomed, well- nourished - Musculoskeletal Gait: normal Station: relaxed Strength & Tone: normal for patient - Psychiatric Patient Orientation: Yes Person, Yes Time, Yes Place Level of alertness: Alert Behavior: calm, cooperative, anxious, restless Psychomotor activity: Agitated Eye Contact: Maintains Eye Contact Mood Description: Euthymic/stable, Depressed Affect description: congruent with mood, full range Speech Volume: Normal Speech pattern: normal rate, normal rhythm, normal tone, fluent, spontaneous Language & Vocabulary: consistent with education Thought Process: Linear, Goal Oriented Thought Content: Yes Suicidal ideation, No Homicidal ideation, No Overt delusions Perceptual Disturbances: No Auditory hallucinations, No Visual hallucinations Attention Span Ability: Capable of Focused Attention Memory Description: Grossly Intact Patient Reliability: Reliable Historian Fund of knowledge: Yes abstraction ability, Yes aware of current events Intelligence Estimate: Average Judgment: Limited Insight: Partial
[2017-12-02] MEDS: Ibuprofen 400 MG TABLET PO PRN ×2 (11:42→17:54)
[2017-12-02] MEDS: traZODone 50 MG TABLET PO SCH (20:49)
[2017-12-02] MEDS: hydrOXYzine pamoate 25 MG CAPSULE PO PRN (20:50)
[2017-12-02] MEDS: cloNIDine HCl 0.1 MG TABLET PO SCH (20:50)
[2017-12-03] MEDS: hydrOXYzine pamoate 25 MG CAPSULE PO PRN (06:15)
[2017-12-03] MEDS: amLODIPine 5 MG TABLET PO SCH (08:14)
[2017-12-03] MEDS: Divalproex (12 HR) 500 MG TABLET PO SCH ×2 (08:14→20:46)
[2017-12-03] MEDS: Polymyxn-B/Trimeth Opth Drops 10 ML BOTTLE LEFT EYE SCH ×4 (08:15→20:48)
[2017-12-03] MEDS: Budesonide/Formoterol 80/4.5 MDI IH SCH ×2 (10:07→21:34)
--- NOTE | 2017-12-03 10:35 | Psychiatry Progress Note ---
Date of Encounter: 12/03/17 Time of Encounter: 09:00 Subjective Interval history: Pt is a 47 yo, x1 currently seperated, with 2 daughters (19, 21) and disabled son (22) , female, who presents for mood and depression. Pt noted that she feels she is improving slowly. Pt noted she is optimistic to "I am really feeling better....I even think a short time in a skilled nursing would help." Pt denied any side effects to current medications. Pt noted she felt safe and comfortable on the unit. Pt was in agreement with treatment plan. Pt noted that she is doing pretty good today. Pt noted she "slept 8 hours really good last night. Pt noted her appetite is better, continues to improve. Pt rated her depression a 7, on a scale of zero to ten with ten being the worst and zero being none. Pt rate her anxiety a 7, on the same scale. Pt denied any auditory or visual hallucinations. Pt denied any thoughts to harm herself or anyone else. Tobacco: Denies Alcohol: Denies Street: Denies Caffeine: Denies Pt denies any TBIs, Hep C, HIV or Seizures. AIMS=1 significant reduction in shaking noted continues to improve Not TD noted 1.Interval hx 2.Continue current medications 3.Review current labs 4.Pt had an opportunity to ask questions and discuss current treatment plan. 5.Supportive therapy was provided 6.Pt encouraged to consider group or individual therapy 7.Pt was in agreement with treatment plan. 8.Pt was educated on the risks benefits and side effects of current medications. 9. Continue Depakote 500 mg PO BID for mood labs pending once at steady state. 10. Increase quetiapine to 200 mg pO QHS for Mood. 11.Draw current labs, and titration labs for depakote Review of Systems Constitutional: Denies: fever, chills, weakness, weight change Eyes: Denies: eye pain, vision change Ears, Nose, Throat: Denies: ear pain, throat pain, dental pain, hearing loss, congestion Cardiovascular: Denies: chest pain, palpitations, dyspnea on exertion Respiratory: Denies: cough, dyspnea, wheezes Gastrointestinal: Denies: abdominal pain, nausea, vomiting, diarrhea, constipation Musculoskeletal: Denies: joint swelling, joint pain Neurological: Denies: headache, weakness, numbness, memory loss Results - Vital Signs Vital Signs: Temp Pulse Resp BP Pulse Ox 96.9 F L 75 18 117/74 95 12/03/17 08:30 12/03/17 08:30 12/03/17 08:30 12/03/17 08:30 12/01/17 03:55 Assessment and Plan (1) Bipolar 1 disorder Current visit: No Status: Acute Plan: Continue hospitalization, Close observation, Suicide Precautions per unit protocol, Encourage participation in unit milieu, Group Therapy, Monitor sleep, Monitor appetite Risks, benefits, side effects, alternatives discussed w/pt: Yes Patient agreeable to treatment: Yes (2) Post traumatic stress disorder (PTSD) Current visit: No Status: Chronic Plan: Continue hospitalization, Close observation, Suicide Precautions per unit protocol, Encourage participation in unit milieu, Group Therapy, Monitor sleep, Monitor appetite Risks, benefits, side effects, alternatives discussed w/pt: Yes Patient agreeable to treatment: Yes (3) Suicidal ideation Current visit: No Status: Acute Plan: Continue hospitalization, Close observation, Suicide Precautions per unit protocol, Encourage participation in unit milieu, Group Therapy, Monitor sleep, Monitor appetite Risks, benefits, side effects, alternatives discussed w/pt: Yes Patient agreeable to treatment: Yes (4) Acute anxiety Current visit: No Status: Acute Plan: Continue hospitalization, Close observation, Suicide Precautions per unit protocol, Encourage participation in unit milieu, Group Therapy, Monitor sleep, Monitor appetite Risks, benefits, side effects, alternatives discussed w/pt: Yes Patient agreeable to treatment: Yes Consult Discharge Plan - Plan Referrals: [facility] [Outside] - 12/10/17 1:00 pm (The above appoitment is with Marimar Holder for outpatient mental health counseling services.) [facility] [Outside] - 01/22/18 3:30 pm (The above appointment is with Stephanie Hartley for outpatient psychiatric assessment and medication management services. The above appointment reflects first availability. You may contact the office regularly to check for cancellations that may allow you to be seen sooner.) Prescriptions: Erythromycin OPTH Oint 1 appl LEFT EYE Q6H 7 Days #1 tube Psychiatry Exam - Constitutional Vitals: Temp Pulse Resp BP Pulse Ox 96.9 F L 75 18 117/74 95 12/03/17 08:30 12/03/17 08:30 12/03/17 08:30 12/03/17 08:30 12/01/17 03:55 General appearance: age & developmentally appropriate, well-groomed, well- nourished - Musculoskeletal Gait: normal Station: relaxed Strength & Tone: normal for patient - Psychiatric Patient Orientation: Yes Person, Yes Time, Yes Place Level of alertness: Alert Behavior: calm, cooperative Psychomotor activity: Normal Eye Contact: Maintains Eye Contact Mood Description: Depressed Affect description: congruent with mood, full range, dysphoric Speech Volume: Normal Speech pattern: normal rate, normal rhythm, normal tone, fluent, spontaneous Language & Vocabulary: consistent with education Thought Process: Linear, Goal Oriented Thought Content: No Suicidal ideation, No Homicidal ideation, No Overt delusions Perceptual Disturbances: No Auditory hallucinations, No Visual hallucinations Attention Span Ability: Capable of Focused Attention Memory Description: Grossly Intact Patient Reliability: Reliable Historian Fund of knowledge: Yes abstraction ability, Yes aware of current events Intelligence Estimate: Average Judgment: Limited Insight: Partial
[2017-12-03] MEDS: MOM Conc 10 ML UD.LIQ PO PRN (12:26)
[2017-12-03] MEDS: Ibuprofen 400 MG TABLET PO PRN (16:43)
[2017-12-03] MEDS: traZODone 50 MG TABLET PO SCH (20:45)
[2017-12-03] MEDS: cloNIDine HCl 0.1 MG TABLET PO SCH (20:46)
[2017-12-04] MEDS: Divalproex (12 HR) 500 MG TABLET PO SCH ×2 (08:45→20:32)
[2017-12-04] MEDS: amLODIPine 5 MG TABLET PO SCH (08:46)
[2017-12-04] MEDS: Polymyxn-B/Trimeth Opth Drops 10 ML BOTTLE LEFT EYE SCH ×4 (08:46→20:30)
[2017-12-04] MEDS: Budesonide/Formoterol 80/4.5 MDI IH SCH ×2 (10:30→20:31)
--- NOTE | 2017-12-04 11:58 | Psychiatry Progress Note ---
Date of Encounter: 12/04/17 Time of Encounter: 11:15 Subjective Interval history: Pt is a 47 yo, x1 currently seperated, with 2 daughters (19, 21) and disabled son (22) , female, who presents for mood and depression. Pt noted that she feels she is improving slowly and feels her medications are working well. Pt noted she is optimistic to "I am really feeling better....I like the medications that I am on." Pt denied any side effects to current medications. Pt noted she felt safe and comfortable on the unit. Pt was in agreement with treatment plan. Pt noted that she is doing pretty good today. Pt noted she "slept 8 hours really good last night. Pt noted her appetite is better, continues to improve. Pt rated her depression a 7, on a scale of zero to ten with ten being the worst and zero being none. Pt rate her anxiety a 7, on the same scale. Pt denied any auditory or visual hallucinations. Pt denied any thoughts to harm herself or anyone else. Tobacco: Denies Alcohol: Denies Street: Denies Caffeine: Denies Pt denies any TBIs, Hep C, HIV or Seizures. AIMS=0 no tremor noted in upper extremities Not TD noted 1.Interval hx 2.Continue current medications 3.Review current labs 4.Pt had an opportunity to ask questions and discuss current treatment plan. 5.Supportive therapy was provided 6.Pt encouraged to consider group or individual therapy 7.Pt was in agreement with treatment plan. 8.Pt was educated on the risks benefits and side effects of current medications. 9. Continue Depakote 500 mg PO BID for mood labs pending once at steady state. 10. Increase quetiapine to 300 mg pO QHS for Mood (pt was previously on 400 mg PO QHS for mood). 11.Draw current labs, and titration labs for depakote on 12/07/2017 Review of Systems Constitutional: Denies: fever, chills, weakness, weight change Eyes: Denies: eye pain, vision change Ears, Nose, Throat: Denies: ear pain, throat pain, dental pain, hearing loss, congestion Cardiovascular: Denies: chest pain, palpitations, dyspnea on exertion Respiratory: Denies: cough, dyspnea, wheezes Gastrointestinal: Denies: abdominal pain, nausea, vomiting, diarrhea, constipation Musculoskeletal: Denies: joint swelling, joint pain Neurological: Denies: headache, weakness, numbness, memory loss Results - Vital Signs Vital Signs: Temp Pulse Resp BP Pulse Ox 98.0 F 77 16 106/76 95 12/04/17 08:23 12/04/17 08:23 12/04/17 08:12/04/17 08:12/01/17 03:55 Assessment and Plan (1) Bipolar 1 disorder Current visit: No Status: Acute Plan: Continue hospitalization, Close observation, Suicide Precautions per unit protocol, Encourage participation in unit milieu, Group Therapy, Monitor sleep, Monitor appetite Risks, benefits, side effects, alternatives discussed w/pt: Yes Patient agreeable to treatment: Yes (2) Post traumatic stress disorder (PTSD) Current visit: No Status: Chronic Plan: Continue hospitalization, Close observation, Suicide Precautions per unit protocol, Encourage participation in unit milieu, Group Therapy, Monitor sleep, Monitor appetite Risks, benefits, side effects, alternatives discussed w/pt: Yes Patient agreeable to treatment: Yes (3) Suicidal ideation Current visit: No Status: Acute Plan: Continue hospitalization, Close observation, Suicide Precautions per unit protocol, Encourage participation in unit milieu, Group Therapy, Monitor sleep, Monitor appetite Risks, benefits, side effects, alternatives discussed w/pt: Yes Patient agreeable to treatment: Yes (4) Acute anxiety Current visit: No Status: Acute Plan: Continue hospitalization, Close observation, Suicide Precautions per unit protocol, Encourage participation in unit milieu, Group Therapy, Monitor sleep, Monitor appetite Risks, benefits, side effects, alternatives discussed w/pt: Yes Patient agreeable to treatment: Yes Consult Discharge Plan - Plan Referrals: [facility] [Outside] - 12/10/17 1:00 pm (The above appoitment is with Marimar Holder for outpatient mental health counseling services.) [facility] [Outside] - 01/22/18 3:30 pm (The above appointment is with Stephanie Hartley for outpatient psychiatric assessment and medication management services. The above appointment reflects first availability. You may contact the office regularly to check for cancellations that may allow you to be seen sooner.) Prescriptions: Erythromycin OPTH Oint 1 appl LEFT EYE Q6H 7 Days #1 tube Psychiatry Exam - Constitutional Vitals: Temp Pulse Resp BP Pulse Ox 98.0 F 77 16 106/76 95 12/04/17 08:23 12/04/17 08:23 12/04/17 08:23 12/04/17 08:23 12/01/17 03:55 General appearance: age & developmentally appropriate, well-groomed, well- nourished - Musculoskeletal Gait: normal Station: relaxed Strength & Tone: normal for patient - Psychiatric Patient Orientation: Yes Person, Yes Time, Yes Place Level of alertness: Alert Behavior: calm, cooperative Psychomotor activity: Normal Eye Contact: Maintains Eye Contact Mood Description: Euthymic/stable, Depressed Affect description: congruent with mood, dysphoric Speech Volume: Normal Speech pattern: normal rate, normal rhythm, normal tone, fluent, spontaneous Language & Vocabulary: consistent with education Thought Process: Linear, Goal Oriented Thought Content: No Suicidal ideation, No Homicidal ideation, Yes Overt delusions Perceptual Disturbances: Yes Auditory hallucinations, No Visual hallucinations Attention Span Ability: Capable of Focused Attention Memory Description: Grossly Intact Patient Reliability: Reliable Historian Fund of knowledge: Yes abstraction ability, Yes aware of current events Intelligence Estimate: Average Judgment: Limited Insight: Partial
[2017-12-04] MEDS: MOM Conc 10 ML UD.LIQ PO PRN (17:18)
[2017-12-04] MEDS: hydrOXYzine pamoate 25 MG CAPSULE PO PRN (20:32)
[2017-12-04] MEDS: traZODone 50 MG TABLET PO SCH (20:33)
[2017-12-04] MEDS: cloNIDine HCl 0.1 MG TABLET PO SCH (20:33)
[2017-12-05] MEDS: Ibuprofen 400 MG TABLET PO PRN ×2 (05:06→15:49)
[2017-12-05] MEDS: Divalproex (12 HR) 500 MG TABLET PO SCH ×2 (08:52→20:29)
[2017-12-05] MEDS: amLODIPine 5 MG TABLET PO SCH (08:52)
[2017-12-05] MEDS: Budesonide/Formoterol 80/4.5 MDI IH SCH ×2 (08:54→20:30)
[2017-12-05] MEDS: Polymyxn-B/Trimeth Opth Drops 10 ML BOTTLE LEFT EYE SCH ×4 (08:55→20:32)
--- NOTE | 2017-12-05 09:58 | Psychiatry Progress Note ---
Date of Encounter: 12/05/17 Time of Encounter: 09:54 Subjective Interval history: Client familiar to this information writer from last weekend. Continues to endorse SI but appears to be in a good mood. Seems to like the hospital. According to staff she tends to sabotage discharge plans if she knows staff are discussing her leaving. Does not want to go home. States she can't take care of herself and that she "does not know what will happen" if she goes home. Chances are good she would represent to the hospital if a discharge plan is not to her liking. Client thinks she needs a longterm. Not sure what her options are at this point. Meds are being adjusted. Client knows to stay away from Adipex. She is complaining of some constipation so will order her some Colace. Review of Systems Constitutional: Denies: fever, chills, weakness, weight change Eyes: Denies: eye pain, vision change Ears, Nose, Throat: Denies: ear pain, throat pain, dental pain, hearing loss, congestion Cardiovascular: Denies: chest pain, palpitations, dyspnea on exertion Respiratory: Denies: cough, dyspnea, wheezes Gastrointestinal: Reports: constipation Musculoskeletal: Denies: joint swelling, joint pain Neurological: Denies: headache, weakness, numbness, memory loss Results - Vital Signs Vital Signs: Temp Pulse Resp BP Pulse Ox 98.4 F 99 18 126/95 95 12/04/17 20:06 12/04/17 20:06 12/04/17 20:06 12/04/17 20:06 12/01/17 03:55 Assessment and Plan (1) Bipolar disorder current episode depressed Current visit: No Status: Acute Plan: Continue hospitalization, Close observation, Suicide Precautions per unit protocol, Encourage participation in unit milieu, Group Therapy, Monitor sleep, Monitor appetite Risks, benefits, side effects, alternatives discussed w/pt: Yes Patient agreeable to treatment: Yes Qualifiers: Current episode severity: severe Psychotic features: without psychotic features Qualified Code(s): F31.4 - Bipolar disorder, current episode depressed, severe, without psychotic features Consult Discharge Plan - Plan Referrals: [facility] [Outside] - 12/10/17 1:00 pm (The above appoitment is with Marimar Holder for outpatient mental health counseling services.) [facility] [Outside] - 01/22/18 3:30 pm (The above appointment is with Stephanie Hartley for outpatient psychiatric assessment and medication management services. The above appointment reflects first availability. You may contact the office regularly to check for cancellations that may allow you to be seen sooner.) Prescriptions: Erythromycin OPTH Oint 1 appl LEFT EYE Q6H 7 Days #1 tube Psychiatry Exam - Constitutional Vitals: Temp Pulse Resp BP Pulse Ox 98.4 F 99 18 126/95 95 12/04/17 20:06 12/04/17 20:06 12/04/17 20:06 12/04/17 20:06 12/01/17 03:55 General appearance: obese - Musculoskeletal Gait: normal Station: relaxed Strength & Tone: normal for patient - Psychiatric Patient Orientation: Yes Person, Yes Time, Yes Place Level of alertness: Alert Behavior: calm, cooperative Psychomotor activity: Normal Eye Contact: Maintains Eye Contact Mood Description: Depressed Affect description: full range Speech Volume: Normal Speech pattern: normal rate, normal rhythm, normal tone, fluent, spontaneous Language & Vocabulary: consistent with education Thought Process: Linear, Goal Oriented Thought Content: Yes Suicidal ideation, No Homicidal ideation, No Overt delusions Perceptual Disturbances: No Auditory hallucinations, No Visual hallucinations Attention Span Ability: Capable of Focused Attention Memory Description: Grossly Intact Patient Reliability: Reliable Historian Fund of knowledge: Yes abstraction ability, Yes aware of current events Intelligence Estimate: Below Average Judgment: Limited Insight: Partial
[2017-12-05] MEDS: hydrOXYzine pamoate 25 MG CAPSULE PO PRN (17:56)
[2017-12-05] MEDS: cloNIDine HCl 0.1 MG TABLET PO SCH (20:27)
[2017-12-05] MEDS: traZODone 50 MG TABLET PO SCH (20:28)
[2017-12-06] MEDS: amLODIPine 5 MG TABLET PO SCH (08:28)
[2017-12-06] MEDS: Divalproex (12 HR) 500 MG TABLET PO SCH ×2 (08:30→20:52)
[2017-12-06] MEDS: MOM Conc 10 ML UD.LIQ PO PRN (08:32)
[2017-12-06] MEDS: Polymyxn-B/Trimeth Opth Drops 10 ML BOTTLE LEFT EYE SCH ×4 (08:33→21:22)
--- NOTE | 2017-12-06 10:28 | Psychiatry Progress Note ---
Date of Encounter: 12/06/17 Time of Encounter: 10:24 Subjective Interval history: Client is highly manipulative. Calls different family members on the phone and plays them off of one another. Continues to say she is depressed and suicidal but seems very happy on the unit. Anxious about being discharged and wants assurances that she will not be sent home too soon. Says she is not ready and that if she goes home "I know what will happen." Wants a half-way but will likely need discharged to her home while she waits for an opening. Review of Systems Constitutional: Denies: fever, chills, weakness, weight change Eyes: Denies: eye pain, vision change Ears, Nose, Throat: Denies: ear pain, throat pain, dental pain, hearing loss, congestion Cardiovascular: Denies: chest pain, palpitations, dyspnea on exertion Respiratory: Denies: cough, dyspnea, wheezes Gastrointestinal: Reports: constipation Musculoskeletal: Denies: joint swelling, joint pain Neurological: Denies: headache, weakness, numbness, memory loss Results - Vital Signs Vital Signs: Temp Pulse Resp BP Pulse Ox 97.3 F L 72 18 114/80 95 12/06/17 08:27 12/06/17 08:27 12/06/17 08:27 12/06/17 08:27 12/01/17 03:55 Assessment and Plan (1) Bipolar disorder current episode depressed Current visit: No Status: Acute Plan: Continue hospitalization, Close observation, Suicide Precautions per unit protocol, Encourage participation in unit milieu, Group Therapy, Monitor sleep, Monitor appetite Risks, benefits, side effects, alternatives discussed w/pt: Yes Patient agreeable to treatment: Yes Qualifiers: Current episode severity: severe Psychotic features: without psychotic features Qualified Code(s): F31.4 - Bipolar disorder, current episode depressed, severe, without psychotic features (2) Borderline personality disorder Current visit: Yes Status: Acute Plan: Continue hospitalization, Close observation, Suicide Precautions per unit protocol, Encourage participation in unit milieu, Group Therapy, Monitor sleep, Monitor appetite Risks, benefits, side effects, alternatives discussed w/pt: Yes Patient agreeable to treatment: Yes Consult Discharge Plan - Plan Referrals: [facility] [Outside] - 12/10/17 1:00 pm (The above appoitment is with Marimar Holder for outpatient mental health counseling services.) [facility] [employer] [facility] [Outside] - 01/22/18 3:30 pm (The above appointment is with Stephanie Hartley for outpatient psychiatric assessment and medication management services. The above appointment reflects first availability. You may contact the office regularly to check for cancellations that may allow you to be seen sooner.) Prescriptions: Erythromycin OPTH Oint 1 appl LEFT EYE Q6H 7 Days #1 tube Psychiatry Exam - Constitutional Vitals: Temp Pulse Resp BP Pulse Ox 97.3 F L 72 18 114/80 95 12/06/17 08:27 12/06/17 08:27 12/06/17 08:27 12/06/17 08:27 12/01/17 03:55 General appearance: unkempt, disheveled - Musculoskeletal Gait: normal Station: relaxed Strength & Tone: normal for patient - Psychiatric Patient Orientation: Yes Person, Yes Time, Yes Place Level of alertness: Alert Behavior: calm, cooperative Psychomotor activity: Normal Eye Contact: Maintains Eye Contact Mood Description: Depressed Affect description: full range Speech Volume: Normal Speech pattern: normal rate, normal rhythm, normal tone, fluent, spontaneous Language & Vocabulary: consistent with education Thought Process: Linear Thought Content: Yes Suicidal ideation, No Homicidal ideation, No Overt delusions Perceptual Disturbances: No Auditory hallucinations, No Visual hallucinations Attention Span Ability: Capable of Focused Attention Memory Description: Grossly Intact Patient Reliability: Not Reliable Historian Fund of knowledge: Yes abstraction ability, Yes aware of current events Intelligence Estimate: Below Average Judgment: Limited Insight: Partial
[2017-12-06] MEDS: Budesonide/Formoterol 80/4.5 MDI IH SCH ×2 (10:52→21:21)
[2017-12-06] MEDS: hydrOXYzine pamoate 25 MG CAPSULE PO PRN (12:24)
[2017-12-06] MEDS: traZODone 50 MG TABLET PO SCH (20:50)
[2017-12-06] MEDS: cloNIDine HCl 0.1 MG TABLET PO SCH (20:51)
[2017-12-07 07:50] LABS: Alanine Aminotransferase 15 Units/L (7-52); Albumin 3.8 g/dL (3.5-5.7); Albumin/Globulin Ratio 1.7 (1.1-2.2); Alkaline Phosphatase 62 Units/L (34-104); Aspartate Amino Transferase 16 Units/L (13-39); BUN/Creatinine Ratio 24 (6-26); Bilirubin,Total 0.3 mg/dL (0.3-1.0); Blood Urea Nitrogen 23 mg/dL (6-20); Calcium 9.3 mg/dL (8.6-10.3); Carbon Dioxide 29 mEq/L (23-29); Chloride 103 mEq/L (98-107); Globulin 2.3 g/dL (2.4-3.5); Glucose 98 mg/dL (70-105); Osmolality,Calculated 288 (280-300); Potassium 4.5 mEq/L (3.5-5.1); Sodium 137 mEq/L (136-145); Total Protein 6.1 g/dL (6.4-8.9); eGFR For Non-African Americans > 60 (> 60)
[2017-12-07] MEDS: amLODIPine 5 MG TABLET PO SCH (08:03)
[2017-12-07] MEDS: Divalproex (12 HR) 500 MG TABLET PO SCH ×2 (08:04→20:52)
[2017-12-07] MEDS: Polymyxn-B/Trimeth Opth Drops 10 ML BOTTLE LEFT EYE SCH ×4 (08:06→20:53)
[2017-12-07] MEDS: Budesonide/Formoterol 80/4.5 MDI IH SCH ×2 (09:52→22:12)
[2017-12-07] MEDS: MOM Conc 10 ML UD.LIQ PO PRN (09:53)
[2017-12-07] MEDS: hydrOXYzine pamoate 25 MG CAPSULE PO PRN (11:38)
--- NOTE | 2017-12-07 14:12 | Psychiatry Progress Note ---
Date of Encounter: 12/07/17 Time of Encounter: 14:00 Subjective Interval history: 47 yo W female CC: I hada learning disorder, I couldn't concnetrate and couldn't add or count. I can't keep track of a checkbook HPI: Patient would like to go to [place], but does not want to go to [facility]. She has been on meds. Her mood is low and she is anxious. 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 An EEG earlier showed evidence of encephalopathy with diffuse slowing. The patient reports that as a child she had difficulty with counting and addition she has not used checkbook and has trouble with some her daily activities. The patient reports anxiety and feeling shaky inside. This has a lot to do with the rogel milieu. She asked to increase one of her medications to see if it would help she has applied for RSS but she R he has Social Security disability and Social Security was given to her because of her mental problems. Review of Systems Psychiatric: Reports: depression, anxiety, suicidal ideation, panic attacks Results - Vital Signs Vital Signs: Temp Pulse Resp BP Pulse Ox 97.6 F 83 18 118/88 95 12/07/17 08:49 12/07/17 08:49 12/07/17 08:49 12/07/17 08:49 12/01/17 03:55 - Labs Labs: Laboratory Results - last 24 hr 12/07/17 07:17 Sodium 137 Potassium 4.5 Chloride 103 Carbon Dioxide 29 BUN 23 H Creatinine 0.95 Est GFR ( Amer) > 60 Est GFR (Non-Af Amer) > 60 BUN/Creatinine Ratio 24 Glucose 98 Calculated Osmolality 288 Calcium 9.3 Total Bilirubin 0.3 AST 16 ALT 15 Alkaline Phosphatase 62 Serum Total Protein 6.1 L Albumin 3.8 Globulin 2.3 L Albumin/Globulin Ratio 1.7 Assessment and Plan (1) Learning disabilities Current visit: No Status: Acute Plan: Close observation, Family/Supportive other meeting Risks, benefits, side effects, alternatives discussed w/pt: Yes Patient agreeable to treatment : Yes (2) Major depressive disorder, recurrent, severe with psychotic features Current visit: No Status: Acute Plan: Continue hospitalization, Close observation, Suicide Precautions per unit protocol, Encourage participation in unit milieu, Group Therapy, Monitor sleep, Monitor appetite, Secure weapons Risks, benefits, side effects, alternatives discussed w/pt: Yes Patient agreeable to treatment: Yes (3) Suicidal behavior Current visit: Yes Status: Acute Plan: Suicide Precautions per unit protocol, Secure weapons Risks, benefits, side effects, alternatives discussed w/pt: Yes Patient agreeable to treatment : Yes Qualifiers: Attempted self-injury: without attempted self-injury Qualified Code(s): R46.89 - Other symptoms and signs involving appearance and behavior Consult Discharge Plan - Plan Referrals: [facility] [Outside] - 12/10/17 1:00 pm (The above appoitment is with Marimar Holder for outpatient mental health counseling services.) [facility] [Outside] - 01/22/18 3:30 pm (The above appointment is with Stephanie Hartley for outpatient psychiatric assessment and medication management services. The above appointment reflects first availability. You may contact the office regularly to check for cancellations that may allow you to be seen sooner.) Prescriptions: Erythromycin OPTH Oint 1 appl LEFT EYE Q6H 7 Days #1 tube Psychiatry Exam - Constitutional Vitals: Temp Pulse Resp BP Pulse Ox 97.6 F 83 18 118/88 95 12/07/17 08:49 12/07/17 08:49 12/07/17 08:49 12/07/17 08:49 12/01/17 03:55 General appearance: age & developmentally appropriate - Musculoskeletal Gait: brisk Station: stooped Strength & Tone: normal for patient - Psychiatric Patient Orientation: Yes Person, Yes Time, Yes Place, Yes Circumstance Level of alertness: Alert Behavior: calm Psychomotor activity: Slowed Eye Contact: Maintains Eye Contact Mood Description: Depressed Affect description: tearful, dysphoric Speech Volume: Normal Speech pattern: normal rate Language & Vocabulary: grade school level Thought Process: Intact Thought Content: Yes Suicidal ideation Perceptual Disturbances: Yes Reacting to internal stimuli Attention Span Ability: Capable of Sustained Attention Patient Reliability: Questionable Historian Fund of knowledge: Yes below average Intelligence Estimate: Below Average Judgment: Limited Insight: Minimal
[2017-12-07] MEDS: cloNIDine HCl 0.1 MG TABLET PO SCH (20:53)
[2017-12-07] MEDS: traZODone 50 MG TABLET PO SCH (20:53)
[2017-12-08] MEDS: Divalproex (12 HR) 500 MG TABLET PO SCH (08:18)
[2017-12-08] MEDS: amLODIPine 5 MG TABLET PO SCH (08:19)
[2017-12-08] MEDS: Polymyxn-B/Trimeth Opth Drops 10 ML BOTTLE LEFT EYE SCH ×4 (08:20→20:24)
[2017-12-08] MEDS: Budesonide/Formoterol 80/4.5 MDI IH SCH ×2 (10:19→21:32)
[2017-12-08] MEDS: hydrOXYzine pamoate 25 MG CAPSULE PO PRN (12:49)
[2017-12-08] MEDS: Ibuprofen 400 MG TABLET PO PRN (12:49)
--- NOTE | 2017-12-08 14:54 | Psychiatry Progress Note ---
Date of Encounter: 12/08/17 Time of Encounter: 14:45 Subjective Interval history: ID:. The patient has been on the unit for over 7 days. She is a 47-year-old white female. Chief complaint I have shakes people keep asking me if I Parkinson's disease. History of present illness I talked to the patient about discharge planning. But she developed significant tremor. When examined it appears to be a tremor with intention it affects all parts of the body. It is present at rest appears to affect the voice and she reports some interference with eating. In March of valproic acid level XCVIII was obtained on the A free and total valproic acid level was ordered but I am not sure that is been collected certainly the results are not back. The patient has given inconsistent answers regarding her depression and depressive symptoms nonetheless she has been able to interact with others and has cooperated in her care. The patient agreed to a trial of Depakote. We will reassess tomorrow. She has outpatient appointments scheduled this week although they could be moved back. The patient I discussed neuropsychological testing this could be obtained T later time when there is greater mood stability. We talked about an MRI these were changes that are not likely to show interval improvement since 2014. Repeating an MRI is not likely to be necessary at this time for the set of symptoms. The patient has a history of impulsive spending which may explain her need for a surrogate to help with her checkbook and other items Review of Systems Neurological: Reports: other Psychiatric: Reports: depression, anxiety, suicidal ideation, panic attacks Results - Vital Signs Vital Signs: Temp Pulse Resp BP Pulse Ox 97.5 F L 77 14 109/77 95 12/08/17 08:02 12/08/17 08:02 12/08/17 08:02 12/08/17 08:02 12/01/17 03:55 Assessment and Plan (1) Learning disabilities Current visit: No Status: Acute Plan: Close observation, Other Risks, benefits, side effects, alternatives discussed w/pt: Yes Patient agreeable to treatment: Yes (2) Major depressive disorder, recurrent, severe with psychotic features Current visit: No Status: Acute Plan: Continue hospitalization, Close observation, Suicide Precautions per unit protocol, Encourage participation in unit milieu, Group Therapy, Monitor sleep, Monitor appetite, Secure weapons, Family/Supportive other meeting Risks, benefits, side effects, alternatives discussed w/pt: Yes Patient agreeable to treatment: Yes (3) Suicidal behavior Current visit: Yes Status: Acute Plan: Continue hospitalization, Close observation, Suicide Precautions per unit protocol, Secure weapons Risks, benefits, side effects, alternatives discussed w/pt: Yes Patient agreeable to treatment: Yes Qualifiers: Attempted self-injury: without attempted self-injury Qualified Code(s): R46.89 - Other symptoms and signs involving appearance and behavior Consult Discharge Plan - Plan Referrals: [facility] [Outside] - 12/10/17 1:00 pm (The above appoitment is with Marimar Holder for outpatient mental health counseling services.) [facility] [Outside] - 01/22/18 3:30 pm (The above appointment is with Stephanie Hartley for outpatient psychiatric assessment and medication management services. The above appointment reflects first availability. You may contact the office regularly to check for cancellations that may allow you to be seen sooner.) Prescriptions: Erythromycin OPTH Oint 1 appl LEFT EYE Q6H 7 Days #1 tube Psychiatry Exam - Constitutional Vitals: Temp Pulse Resp BP Pulse Ox 97.5 F L 77 14 109/77 95 12/08/17 08:02 12/08/17 08:02 12/08/17 08:02 12/08/17 08:02 12/01/17 03:55 General appearance: age & developmentally appropriate, well-groomed, well- nourished - Musculoskeletal Gait: normal Station: relaxed Strength & Tone: normal for patient - Psychiatric Patient Orientation: Yes Person, Yes Time, Yes Place Level of alertness: Alert Behavior: calm, cooperative Psychomotor activity: Normal Eye Contact: Maintains Eye Contact Mood Description: Euthymic/stable Affect description: congruent with mood, full range Speech Volume: Normal Speech pattern: normal rate, normal rhythm, normal tone, fluent, spontaneous Language & Vocabulary: consistent with education Thought Process: Linear, Goal Oriented Thought Content: Yes Suicidal ideation, No Homicidal ideation, No Overt delusions Perceptual Disturbances: No Auditory hallucinations, No Visual hallucinations Attention Span Ability: Capable of Focused Attention Memory Description: Grossly Intact Patient Reliability: Reliable Historian Fund of knowledge: Yes abstraction ability, Yes aware of current events Intelligence Estimate: Average Judgment: Limited Insight: Minimal
[2017-12-08] MEDS: traZODone 50 MG TABLET PO SCH (20:23)
[2017-12-08] MEDS: cloNIDine HCl 0.1 MG TABLET PO SCH (20:24)
[2017-12-08 23:15] LABS: Valproate Free 11 ug/mL (7-23); Valproate Total 72 ug/mL (50-125)
[2017-12-09 08:13] LABS: Valproate % Free 15 % (5-18)
[2017-12-09] MEDS: Budesonide/Formoterol 80/4.5 MDI IH SCH ×2 (08:56→21:41)
[2017-12-09] MEDS: amLODIPine 5 MG TABLET PO SCH (08:57)
[2017-12-09] MEDS: Polymyxn-B/Trimeth Opth Drops 10 ML BOTTLE LEFT EYE SCH ×4 (08:58→21:09)
--- NOTE | 2017-12-09 12:42 | Psychiatry Progress Note ---
Date of Encounter: 12/09/17 Time of Encounter: 12:30 Subjective Interval history: ID the patient is a 47-year-old white female. Chief complaint I am and having shaking. I have had some breakouts. I had ringworm when I was at the clinic. The patient remains labile on the unit. She has no observed suicidal or homicidal ideation yesterday Depakote was discontinued. The patient had a significant resting and intention tremor treated today it is still present but appears to be less in amplitude and frequency. Appears to be interfere less with her day-to-day activities. The patient and I discussed her discharge plan and her follow-up discharge appointment. She is willing to go there. When asked about the reasons that she does not have a bank account she says that she does have a checking account that she cannot count or add but that she has had financial misadventure rather than difficulty and calculation the patient has a diagnosis of major depressive disorder with psychotic features. But lately she has not heard auditory hallucinations although she has had paranoia. She is currently stable on medicines but does not need Depakote as she does not appear to have a bipolar disorder based on this hospitalizations diagnostic interview. The patient does have a history of learning disorders including a arithmetic disorder. I talked to her about a repeat MRI and neuropsychological testing I did not feel that this was necessary at this time as the patient is not likely to have interval changes. Furthermore stabilization of mood and removing certain medicines might be helpful. The patient will remain off Depakote. The blood levels were reviewed. The Depakote level valproic acid. And free valproic acid were within normal limits. The total valproic acid was 72. The free valproic acid was similarly within the therapeutic range. This suggests that the patient is having an adverse reaction to Depakote while in the therapeutic range and through therapeutic use of Depakote. This argues against the use of this his mood stabilizer or adjunct treatment. The patient showed me some rashes and at this point I believe it may be reaction to a sober detergent. I will add Kenalog cream. The patient has been using erythromycin for an eye infection but this will be discontinued at the time discharge. Review of Systems Psychiatric: Reports: depression, anxiety, suicidal ideation, panic attacks Results - Vital Signs Vital Signs: Temp Pulse Resp BP Pulse Ox 97.1 F L 78 18 118/80 95 12/09/17 09:00 12/09/17 09:00 12/09/17 09:00 12/09/17 09:00 12/01/17 03:55 - Drug Levels and Toxicology Drug Levels and Toxicology: Drug Levels and Toxicity 12/07/17 07:17 Free Valproic Acid 11 Total Valproic Acid 72 - Labs Labs: Laboratory Results - last 24 hr 12/07/17 07:17 Free Valproic Acid 11 Total Valproic Acid 72 % Free Valproic Acid 15 Assessment and Plan (1) Learning disabilities Current visit: No Status: Acute Risks, benefits, side effects, alternatives discussed w/pt: Yes Patient agreeable to treatment: Yes (2) Major depressive disorder, recurrent, severe with psychotic features Current visit: No Status: Acute Risks, benefits, side effects, alternatives discussed w/pt: Yes Patient agreeable to treatment: Yes (3) Suicidal behavior Current visit: Yes Status: Acute Risks, benefits, side effects, alternatives discussed w/pt: Yes Patient agreeable to treatment: Yes Qualifiers: Attempted self-injury: without attempted self-injury Qualified Code(s): R46.89 - Other symptoms and signs involving appearance and behavior (4) Adverse effect of other antiepileptic and sedative-hypnotic drugs, initial encounter Current visit: Yes Status: Acute Plan: Close observation, Other Risks, benefits, side effects, alternatives discussed w/pt: Yes Patient agreeable to treatment: Yes Consult Discharge Plan - Plan Referrals: [facility] [Outside] - 12/10/17 1:00 pm (The above appoitment is with Marimar Holder for outpatient mental health counseling services.) [facility] [Outside] - 01/22/18 3:30 pm (The above appointment is with Stephanie Hartley for outpatient psychiatric assessment and medication management services. The above appointment reflects first availability. You may contact the office regularly to check for cancellations that may allow you to be seen sooner.) Prescriptions: Erythromycin OPTH Oint 1 appl LEFT EYE Q6H 7 Days #1 tube Psychiatry Exam - Constitutional Vitals: Temp Pulse Resp BP Pulse Ox 97.1 F L 78 18 118/80 95 12/09/17 09:00 12/09/17 09:00 12/09/17 09:00 12/09/17 09:00 12/01/17 03:55 General appearance: age & developmentally appropriate, well-groomed, well- nourished - Musculoskeletal Gait: normal Station: shaky Strength & Tone: normal for patient - Psychiatric Patient Orientation: Yes Person, Yes Time, Yes Place Level of alertness: Alert Behavior: calm, cooperative Psychomotor activity: Normal Eye Contact: Maintains Eye Contact Mood Description: Depressed, Anxious Affect description: congruent with mood, anxious Speech Volume: Normal Speech pattern: normal rate, normal rhythm, normal tone, fluent, spontaneous Language & Vocabulary: grade school level Thought Process: Linear, Goal Oriented Thought Content: No Suicidal ideation, No Homicidal ideation, No Overt delusions Perceptual Disturbances: No Auditory hallucinations, No Visual hallucinations Attention Span Ability: Capable of Focused Attention Memory Description: Grossly Intact Patient Reliability: Questionable Historian Fund of knowledge: Yes abstraction ability, Yes average Intelligence Estimate: Below Average Judgment: Fair Insight: Partial
[2017-12-09] MEDS: Ibuprofen 400 MG TABLET PO PRN (14:46)
[2017-12-09] MEDS: Triamcinolone Acet 0.1% CRM 15 GM TUBE TP SCH ×2 (14:47→21:09)
[2017-12-09] MEDS: hydrOXYzine pamoate 25 MG CAPSULE PO PRN (18:44)
[2017-12-09] MEDS: traZODone 50 MG TABLET PO SCH (21:08)
[2017-12-09] MEDS: cloNIDine HCl 0.1 MG TABLET PO SCH (21:09)
[2017-12-10] MEDS: hydrOXYzine pamoate 25 MG CAPSULE PO PRN (04:44)
[2017-12-10] MEDS: Ibuprofen 400 MG TABLET PO PRN (04:44)
[2017-12-10] MEDS: Budesonide/Formoterol 80/4.5 MDI IH SCH (08:48)
[2017-12-10] MEDS: Triamcinolone Acet 0.1% CRM 15 GM TUBE TP SCH (08:49)
[2017-12-10] MEDS: amLODIPine 5 MG TABLET PO SCH (08:51)
[2017-12-10] MEDS: Polymyxn-B/Trimeth Opth Drops 10 ML BOTTLE LEFT EYE SCH (08:53)
[2017-12-10 09:04] VITALS: BP 124/88
--- NOTE | 2017-12-10 11:27 | Discharge Summary ---
Date of Encounter: 12/10/17 Time of Encounter: 11:15 Diagnosis - Discharge Diagnosis (1) Learning disabilities Priority: Secondary Status: Chronic (2) Major depressive disorder, recurrent, severe with psychotic features Priority: Primary Status: Acute (3) Suicidal behavior Priority: Secondary Status: Resolved Qualifiers: Attempted self-injury: without attempted self-injury Qualified Code(s): R46.89 - Other symptoms and signs involving appearance and behavior (4) Adverse effect of other antiepileptic and sedative-hypnotic drugs, initial encounter Priority: Secondary Status: Acute Medications - Discharge Medications Prescriptions: Benztropine Mesylate 0.5 mg PO BID 14 Days #30 tablet Escitalopram [Lexapro] 10 mg PO DAILY 14 Days #14 tablet Quetiapine Fumarate [Seroquel] 300 mg PO HS 14 Days #14 tablet traZODone [TraZODone] 100 mg PO HS 14 Days #14 tablet Triamcinolone Acet 0.1% CRM [Kenalog] 1 appl TP TID 14 Days #1 tube Amlodipine Besylate 10 mg PO DAILY 12/10/15 [History] Albuterol Sulfate [Albuterol Inhaler] 2 puff IH Q6HR PRN 04/02/16 [History] Buspirone HCl [Buspar] 30 mg PO TID 01/08/17 [History] Fluticasone Propionate Nasal [Flonase] 50 mcg NS BID PRN 01/08/17 [History] Losartan Potassium [Cozaar] 50 mg PO DAILY 01/08/17 [History] cloNIDine HCl [CloNIDine HCl] 0.1 mg PO HS 01/08/17 [History] Ipratropium/Albuterol Neb [Duoneb] 3 ml IH Q6H PRN #30 vial.neb 02/12/17 [Rx] Fluticasone/Salmeterol [Advair Hfa 115-21 Mcg Inhaler] 2 puff IH BID 04/19/17 [ History] Benztropine Mesylate 0.5 mg PO BID 14 Days #30 tablet 12/10/17 [Rx] Escitalopram [Lexapro] 10 mg PO DAILY 14 Days #14 tablet 12/10/17 [Rx] Hydrocortisone 1% CREAM [Cortaid] 1 appl TP BID PRN bottle 12/10/17 [Rx] Quetiapine Fumarate [Seroquel] 300 mg PO HS 14 Days #14 tablet 12/10/17 [Rx] Triamcinolone Acet 0.1% CRM [Kenalog] 1 appl TP TID 14 Days #1 tube 12/10/17 [Rx ] traZODone [TraZODone] 100 mg PO HS 14 Days #14 tablet 12/10/17 [Rx] 3 Allergy/AdvReac Type Severity Reaction Status Date / Time codeine Allergy Unresponsiv Verified 11/23/17 15:42 e risperidone [From Risperdal] Allergy Anaphylaxis Verified 11/23/17 15:42 Results Procedures and tests throughout hospitalization: Completed Lab Orders Category Date Time Status Comprehensive Metabolic Panel Routine Lab 12/01/17 12:21 Completed Comprehensive Metabolic Panel Routine Lab 12/07/17 07:17 Completed Valproate Total & Free Routine Lab 12/07/17 07:17 Completed Provider Date of admission: 11/30/17 04:16 Primary care physician: PCP NONE Consults: 12/08/17 01:04 Consult to Pastoral Services [CONS] Routine Comment: Discharging clinician: Jerardo Dowling Psychiatry Exam - Constitutional Vitals: Temp Pulse Resp BP Pulse Ox 98.4 F 83 18 124/88 95 12/10/17 09:00 12/10/17 09:00 12/10/17 09:00 12/10/17 09:00 12/01/17 03:55 General appearance: age & developmentally appropriate, well-groomed, well- nourished - Musculoskeletal Gait: normal Station: relaxed Strength & Tone: normal for patient - Psychiatric Patient Orientation: Yes Person, Yes Time, Yes Place Level of alertness: Alert Behavior: calm, cooperative Psychomotor activity: Normal Eye Contact: Maintains Eye Contact Mood Description: Euthymic/stable Affect description: congruent with mood, labile Speech Volume: Normal Speech pattern: normal rate, normal rhythm, normal tone, fluent, spontaneous Language & Vocabulary: consistent with education Thought Process: Linear, Goal Oriented Thought Content: No Suicidal ideation, No Homicidal ideation, No Overt delusions Perceptual Disturbances: No Auditory hallucinations, No Visual hallucinations Attention Span Ability: Capable of Focused Attention Memory Description: Grossly Intact Patient Reliability: Reliable Historian Fund of knowledge: Yes abstraction ability, Yes aware of current events Intelligence Estimate: Average Judgment: Fair Insight: Partial Hospital Course Hospital course: Ms. Mckeon is a 47 year old female Time spent discussing smoking cessation with patient: 3 to 10 minutes Does patient wish to continue nicotine replacement upon disc: No - Time Spent with Patient Total time spent providing and/or coordinating discharge services: Less than 30 minutes Assessment and Plan - Patient/Caregiver Discharge Instructions Activity: resume usual activities as tolerated Diet: regular diet - Follow up Plan Follow up with: [facility] [Outside] - 12/10/17 1:00 pm (The above appoitment is with Marimar Holder for outpatient mental health counseling services.) [facility] [Outside] - 01/22/18 3:30 pm (The above appointment is with Stephanie Hartley for outpatient psychiatric assessment and medication management services. The above appointment reflects first availability. You may contact the office regularly to check for cancellations that may allow you to be seen sooner.) Functional capacity at discharge: independent ambulation Overall status at discharge: Stable Disposition: Home, Self-Care Quality - Multiple Antipsychotics Patient discharged on 2 or more antipsychotic medications: No Procedures - Procedures Procedures: Medication Management, Crisis Stabilization, Supportive Therapy, Group Therapy, Psychoeducational Therapy
== END 2017-12-10 12:35 | disposition home or self-care (01) | DRG 885 ==
LOC: EMEROOARM 19:31 → SUATTDRO 11-30 04:16 → 1ANU 11-30 04:16
PROVIDERS: ADMIT Psychiatry & Neurology Psychiatry; ATTEND Psychiatry & Neurology Forensic Psychiatry

== ENCOUNTER 2021-10-01 09:25 | Inpatient (IN) ==
[2021-10-01] MEDS ORDERED: Ondansetron 4 MG/2 ML VIAL IVP ONE (09:46)
[2021-10-01] MEDS ORDERED: Ketorolac 30 MG/ML VIAL IVP ONE (09:46)
[2021-10-01 10:09] LABS: Hematocrit 36.9 % (35.3-44.9); Lymphocytes % 11.3 %
[2021-10-01 10:11] LABS: Basophils # 0.1 K/mcL (0.0-0.2); Basophils % 0.6 %; Eosinophils # 0.1 K/mcL (0.0-0.6); Eosinophils % 0.8 %; Hemoglobin 11.9 g/dL (11.5-15.4); Immature Granulocytes % 1.3 % (0-4); Immature Platelets 3.5 % (1.1-6.1); Lymphocytes # 1.2 K/mcL (0.6-4.6); Mean Corpuscular HGB Conc 32.2 g/dL (31.6-35.5); Mean Corpuscular Hemoglobin 26.3 pg (28.0-33.3); Mean Corpuscular Volume 81.6 fL (83.0-100.0); Mean Platelet Volume 9.5 fL (9.4-12.4); Neutrophils # 7.8 K/mcL (1.6-8.9); Platelet Count 233 K/mcL (140-400); Red Blood Count 4.52 M/mcL (3.82-4.97); Red Cell Distribution Width 14.5 % (11.5-14.5); White Blood Count 10.2 K/mcL (4.3-11.1)
[2021-10-01] MEDS ORDERED: *HR* FentaNYL (PF) 100 MCG/2 ML VIAL IVP ONE (10:46)
[2021-10-01 10:47] LABS: Bilirubin,Urine Negative (Negative); Blood,Urine Small (Negative); Clarity,Urine Clear (Clear); Color,Urine Light-Yellow (Yellow); Glucose,Urine (UA) >=1000 mg/dL (Normal); Ketones,Urine 10 mg/dL (Negative); Leukocyte Esterase,Urine Small (Negative); Nitrite,Urine Negative (Negative); Protein,Urine Negative (Neg-Trace); RBC,Urine 0-3 per hpf (0-3); Specific Gravity,Urine 1.026 (1.010-1.025); Squamous Epithelial Cell,Urine Few per hpf (None-Few); Urobilinogen,Urine Normal (Normal); WBC,Urine 15-30 per hpf (0-3)
[2021-10-01 11:01] LABS: Platelet Estimate Normal (Normal)
[2021-10-01 12:03] LABS: Albumin 3.5 g/dL (3.5-5.7); Albumin/Globulin Ratio 0.9 (1.1-2.2); Bilirubin,Direct 0.1 mg/dL (0.0-0.2); Bilirubin,Indirect 0.4 mg/dL (0.0-1.0); Bilirubin,Total 0.5 mg/dL (0.3-1.0); Calcium 9.6 mg/dL (8.6-10.3); Globulin 3.9 g/dL (2.4-3.5); Potassium 6.1 mEq/L (3.5-5.1); Total Protein 7.4 g/dL (6.4-8.9)
[2021-10-01] MEDS ORDERED: Albuterol 2.5 MG/3 ML NEBULIZER IH ONE (12:07)
[2021-10-01] MEDS ORDERED: Insulin Human Regular 10 UNIT in 0.9 % Sodium Chloride 10 ML IV ONE (12:08)
[2021-10-01] MEDS ORDERED: 0.9 % Sodium Chloride 1,000 ML IVC ONE (12:11)
[2021-10-01] MEDS ORDERED: cefTRIAXone 1,000 MG in Water for inj. (sterile) 10 ML IVP ONE (12:25)
[2021-10-01] MEDS ORDERED: *HR* Dextrose 50 % in Water (Syg) 50 ML SYRINGE IVP PRN ×2 (12:51→16:03)
[2021-10-01 12:53] LABS: VBG HCO3 27 mEq/L (21-27); VBG PCO2 40 mmHg (41-51); VBG PH 7.43 pH Units (7.32-7.42); VBG PO2 146 mmHg (25-50)
[2021-10-01 15:07] LABS: Albumin 3.3 g/dL (3.5-5.7); Albumin/Globulin Ratio 0.9 (1.1-2.2); Bilirubin,Total 0.3 mg/dL (0.3-1.0); Calcium 9.3 mg/dL (8.6-10.3); Globulin 3.7 g/dL (2.4-3.5)
[2021-10-01] MEDS ORDERED: Naloxone 0.4 MG/ML INJ IVP PRN (16:03)
[2021-10-01] MEDS ORDERED: Insulin Regular, Human 100 UNIT/ML IV PRN (16:03)
[2021-10-01] MEDS ORDERED: 0.9 % Sodium Chloride 1,000 ML IVC SCH (16:15)
[2021-10-01 17:53] LABS: Estimated Average Glucose 361 mg/dl; Hemoglobin A1C 14.2 %
[2021-10-01] MEDS: 0.9 % Sodium Chloride w KCl 20 MEQ/1,000 ML MLS IVC SCH ×2 (18:08→20:33)
[2021-10-01 18:43] LABS: ABG Base Excess 5 mEq/L (-2 to 3); ABG HCO3 30 mEq/L (21-27); ABG Oxygen Saturation 91 % (95-98); ABG PCO2 46 mmHg (35-45); ABG PH 7.42 pH Units (7.32-7.45); ABG PO2 61 mmHg (85-104); ABG TCO2 31 mEq/L (20-26)
[2021-10-01 19:06] LABS: Influenza A PCR Negative (Negative); Influenza B PCR Negative (Negative); Resp. Syncytial Virus PCR Negative (Negative); SARS-CoV-2 by PCR (In House) Negative (Negative)
[2021-10-01] MEDS: Azithromycin 500 MG in 0.9 % Sodium Chloride 250 ML IVPB SCH (20:01)
[2021-10-01 20:14] LABS: BUN/Creatinine Ratio 29 (6-26); Blood Urea Nitrogen 33 mg/dL (6-20); Calcium 9.4 mg/dL (8.6-10.3); Carbon Dioxide 27 mEq/L (23-29); Chloride 92 mEq/L (98-107); Glucose 267 mg/dL (70-105); Osmolality,Calculated 283 (280-300); Potassium 5.1 mEq/L (3.5-5.1); Sodium 128 mEq/L (136-145); eGFR For African Americans > 60 (> 60); eGFR For Non-African Americans 50 (> 60)
[2021-10-01] MEDS: diazePAM 2 MG TABLET PO SCH (20:47)
[2021-10-01] MEDS: Nystatin POWDER 30 GM BOTTLE TP SCH (20:48)
[2021-10-01] MEDS: cloNIDine HCL 0.1 MG TABLET PO SCH (20:48)
[2021-10-01] MEDS: hydrOXYzine pamoate 25 MG CAPSULE PO SCH (20:48)
[2021-10-01] MEDS: QUEtiapine Fumarate 100 MG TABLET PO SCH (20:48)
[2021-10-01] MEDS: Furosemide 40 MG TABLET PO SCH (20:55)
[2021-10-01] MEDS: Acetaminophen 325 MG TABLET PO PRN (21:54)
[2021-10-02] MEDS: D5% in 0.45% NACL w KCl 20 MEQ/1,000 ML MLS IVC SCH ×2 (00:05→06:16)
[2021-10-02 00:18] LABS: BUN/Creatinine Ratio 29 (6-26); Blood Urea Nitrogen 30 mg/dL (6-20); Calcium 8.5 mg/dL (8.6-10.3); Carbon Dioxide 27 mEq/L (23-29); Chloride 101 mEq/L (98-107); Glucose 114 mg/dL (70-105); Osmolality,Calculated 285 (280-300); Potassium 4.8 mEq/L (3.5-5.1); Sodium 134 mEq/L (136-145); eGFR For African Americans > 60 (> 60); eGFR For Non-African Americans 56 (> 60)
[2021-10-02 00:36] LABS: Amphetamine Screen,Urine Negative ng/mL (Cutoff=1000); Barbiturate Screen,Urine Negative ng/mL (Cutoff=200); Benzodiazepines Screen,Urine Positive ng/mL (Cutoff=200); Cannabinoid Screen,Urine Negative ng/mL (Cutoff = 50); Cocaine Screen,Urine Negative ng/mL (Cutoff= 300); Opiate Screen,Urine Negative ng/mL (Cutoff=300); Phencyclidine Screen,Urine Negative ng/mL (Cutoff=25)
[2021-10-02] MEDS: *HR* Heparin 5,000 UNIT/ML VIAL SQ SCH ×3 (00:55→16:15)
[2021-10-02 00:57] LABS: VBG HCO3 28 mEq/L (21-27); VBG PCO2 51 mmHg (41-51); VBG PH 7.35 pH Units (7.32-7.42); VBG PO2 91 mmHg (25-50)
[2021-10-02 02:38] LABS: Alanine Aminotransferase 4 Units/L (7-52); Albumin/Globulin Ratio 0.9 (1.1-2.2); Alkaline Phosphatase 67 Units/L (34-104); Aspartate Amino Transferase 11 Units/L (13-39); BUN/Creatinine Ratio 30 (6-26); Bilirubin,Total 0.3 mg/dL (0.3-1.0); Blood Urea Nitrogen 32 mg/dL (6-20); Calcium 8.6 mg/dL (8.6-10.3); Carbon Dioxide 28 mEq/L (23-29); Chloride 102 mEq/L (98-107); Globulin 3.4 g/dL (2.4-3.5); Glucose 97 mg/dL (70-105); Magnesium 2.2 mg/dL (1.6-2.6); Osmolality,Calculated 275 (280-300); Phosphorous 2.1 mg/dL (2.7-4.5); Potassium 4.8 mEq/L (3.5-5.1); Salicylate < 2.5 mg/dL (15.0-30.0); Sodium 129 mEq/L (136-145); Total Protein 6.4 g/dL (6.4-8.9); eGFR For African Americans > 60 (> 60); eGFR For Non-African Americans 54 (> 60)
[2021-10-02 02:39] LABS: Basophils # 0.1 K/mcL (0.0-0.2); Basophils % 0.8 %; Eosinophils # 0.4 K/mcL (0.0-0.6); Eosinophils % 4.7 %; Hematocrit 28.6 % (35.3-44.9); Immature Granulocytes % 1.6 % (0-4); Lymphocytes # 1.6 K/mcL (0.6-4.6); Lymphocytes % 17.5 %; Mean Corpuscular HGB Conc 31.8 g/dL (31.6-35.5); Mean Corpuscular Hemoglobin 25.8 pg (28.0-33.3); Mean Platelet Volume 8.6 fL (9.4-12.4); Monocytes % 11.1 %; Neutrophils # 5.8 K/mcL (1.6-8.9); Platelet Count 232 K/mcL (140-400); Red Blood Count 3.53 M/mcL (3.82-4.97); Red Cell Distribution Width 14.3 % (11.5-14.5); Segmented Neutrophils % 64.3 %
[2021-10-02 02:40] LABS: Hemoglobin 9.1 g/dL (11.5-15.4)
[2021-10-02] MEDS: 0.9 % Sodium Chloride w KCl 20 MEQ/1,000 ML MLS IVC SCH ×3 (06:14→06:16)
[2021-10-02] MEDS: Insulin DETEMIR 100 UNIT/ML X5UNITS SUBQ ONE ×2 (06:16→06:19)
[2021-10-02] MEDS ORDERED: Dextrose Gel 15 GM/37.5 ML TUBE PO PRN ×2 (08:12)
[2021-10-02] MEDS ORDERED: D5% in Water 1,000 ML IVC PRN (08:12)
[2021-10-02] MEDS ORDERED: Saline Nasal Spray 44 ML BOTTLE NS PRN (08:22)
[2021-10-02] MEDS: Acetaminophen 325 MG TABLET PO PRN (08:43)
[2021-10-02] MEDS: diazePAM 2 MG TABLET PO SCH ×2 (08:44→20:15)
[2021-10-02] MEDS: Cholecalciferol (D-3) 1,000 UNIT (25MCG) TABLET PO SCH (08:45)
[2021-10-02] MEDS: Furosemide 40 MG TABLET PO SCH ×2 (08:45→16:15)
[2021-10-02] MEDS: cloNIDine HCL 0.1 MG TABLET PO SCH ×2 (08:45→20:16)
[2021-10-02] MEDS: QUEtiapine Fumarate 25 MG TABLET PO SCH (08:45)
[2021-10-02] MEDS: hydrOXYzine pamoate 25 MG CAPSULE PO SCH ×2 (08:45→20:15)
[2021-10-02] MEDS: Loratadine 10 MG TABLET PO SCH (08:45)
[2021-10-02] MEDS ORDERED: MOM Conc 10 ML UD.LIQ PO PRN (08:46)
[2021-10-02] MEDS: Divalproex (24 HR) 500 MG TABLET PO SCH (08:46)
[2021-10-02] MEDS ORDERED: Ondansetron ODT 4 MG TAB.RAPDIS PO PRN (08:48)
[2021-10-02] MEDS ORDERED: Ertapenem 1,000 MG in 0.9 % Sodium Chloride Mini Bag 100 ML IVPB SCH (09:00)
[2021-10-02] MEDS ORDERED: cefTRIAXone 1,000 MG in 0.9 % Sodium Chloride 10 ML IVP SCH (09:00)
[2021-10-02] MEDS ORDERED: DESVENLAFAXINE SUCCINATE 25 MG PO SCH (09:00)
[2021-10-02] MEDS: Clotrimazole/Betameth Dip CRM 45 APPL/45 GM TUBE TP SCH ×2 (09:00→20:16)
[2021-10-02] MEDS: Nystatin Cream 15 GM TUBE TP SCH ×2 (09:01→20:14)
[2021-10-02] MEDS: Fluticasone Propionate Nasal 50 MCG/SPRAY BOTTLE NS SCH ×2 (09:01→20:17)
[2021-10-02] MEDS: Nystatin POWDER 30 GM BOTTLE TP SCH ×2 (09:01→20:15)
[2021-10-02] MEDS: Insulin LISPRO 300 UNITS/3 ML VIAL SUBQ SCH ×3 (09:08→16:53)
[2021-10-02] MEDS: Mirabegron [Myrbetriq] 50 MG Tab.Er.24h PO SCH (09:09)
[2021-10-02] MEDS: Pimavanserin Tartrate [Nuplazid] 34 MG Capsule PO SCH (09:09)
[2021-10-02] MEDS: Ammonium Lactate 30 APPL/225 GM BOTTLE TP SCH ×2 (09:49→20:15)
[2021-10-02] MEDS: Budesonide/Formoterol 80/4.5 1 PUFF INH IH SCH ×2 (10:53→21:45)
[2021-10-02] MEDS: Ertapenem 1,000 MG in 0.9 % Sodium Chloride Mini Bag 100 ML IVPB SCH (12:25)
[2021-10-02] MEDS: Lactobacillus 1 EACH CAP.SPRINK PO SCH (12:28)
[2021-10-02] MEDS: Azithromycin 500 MG in 0.9 % Sodium Chloride 250 ML IVPB SCH (16:15)
[2021-10-02] MEDS: Ipratropium/Albuterol Neb 3 ML IH SCH ×2 (19:59→21:45)
[2021-10-02] MEDS: Melatonin 3 MG TABLET PO SCH (20:15)
[2021-10-02] MEDS: Benzonatate 100 MG CAPSULE PO PRN (20:15)
[2021-10-02] MEDS: QUEtiapine Fumarate 100 MG TABLET PO SCH (20:16)
[2021-10-02] MEDS: Insulin DETEMIR 100 UNIT/ML X5UNITS SUBQ SCH (20:22)
[2021-10-03] MEDS: *HR* Heparin 5,000 UNIT/ML VIAL SQ SCH ×3 (00:31→15:13)
[2021-10-03] MEDS ORDERED: Morphine Sulfate 2 MG/ML SYRINGE IVP ONE (00:47)
[2021-10-03] MEDS: Ipratropium/Albuterol Neb 3 ML IH SCH ×4 (03:59→22:48)
[2021-10-03] MEDS: diazePAM 2 MG TABLET PO SCH ×2 (08:01→19:56)
[2021-10-03] MEDS: cloNIDine HCL 0.1 MG TABLET PO SCH ×2 (08:01→19:55)
[2021-10-03] MEDS: hydrOXYzine pamoate 25 MG CAPSULE PO SCH ×2 (08:01→19:57)
[2021-10-03] MEDS: Loratadine 10 MG TABLET PO SCH (08:01)
[2021-10-03] MEDS: Divalproex (24 HR) 500 MG TABLET PO SCH (08:02)
[2021-10-03] MEDS: Furosemide 40 MG TABLET PO SCH (08:02)
[2021-10-03] MEDS: Venlafaxine XR (24 HR) 37.5 MG CAP.ER.24H PO SCH (08:02)
[2021-10-03] MEDS: Lactobacillus 1 EACH CAP.SPRINK PO SCH (08:02)
[2021-10-03] MEDS: Insulin LISPRO 300 UNITS/3 ML VIAL SUBQ SCH ×3 (08:03→17:20)
[2021-10-03] MEDS: QUEtiapine Fumarate 25 MG TABLET PO SCH (08:03)
[2021-10-03] MEDS: Cholecalciferol (D-3) 1,000 UNIT (25MCG) TABLET PO SCH (08:03)
[2021-10-03] MEDS: Insulin DETEMIR 100 UNIT/ML X5UNITS SUBQ SCH ×2 (08:03→20:15)
[2021-10-03] MEDS: Fluticasone Propionate Nasal 50 MCG/SPRAY BOTTLE NS SCH ×2 (08:04→20:14)
[2021-10-03] MEDS: Mirabegron [Myrbetriq] 50 MG Tab.Er.24h PO SCH (08:06)
[2021-10-03] MEDS: Nystatin Cream 15 GM TUBE TP SCH ×2 (08:06→20:15)
[2021-10-03] MEDS: Ammonium Lactate 30 APPL/225 GM BOTTLE TP SCH ×2 (08:06→20:14)
[2021-10-03] MEDS: Clotrimazole/Betameth Dip CRM 45 APPL/45 GM TUBE TP SCH ×2 (08:06→20:14)
[2021-10-03] MEDS: Nystatin POWDER 30 GM BOTTLE TP SCH ×2 (08:06→20:15)
[2021-10-03] MEDS: Pimavanserin Tartrate [Nuplazid] 34 MG Capsule PO SCH (08:07)
[2021-10-03] MEDS ORDERED: Furosemide 40 MG/4 ML VIAL IVP ONE ×2 (08:37→14:47)
[2021-10-03] MEDS ORDERED: predniSONE 20 MG TABLET PO SCH (09:00)
[2021-10-03] MEDS ORDERED: Ipratropium/Albuterol Neb 3 ML IH ONE (09:35)
[2021-10-03] MEDS: Budesonide/Formoterol 80/4.5 1 PUFF INH IH SCH ×2 (10:15→22:48)
[2021-10-03] MEDS ORDERED: Perflutren Lipid Microsphere 1.3 ML in 0.9 % Sodium Chloride 8.7 ML IVP PRN (10:31)
[2021-10-03 10:47] LABS: Basophils # 0.1 K/mcL (0.0-0.2); Basophils % 0.8 %; Eosinophils # 0.6 K/mcL (0.0-0.6); Eosinophils % 6.7 %; Hematocrit 32.1 % (35.3-44.9); Immature Granulocytes % 2.8 % (0-4); Lymphocytes # 1.2 K/mcL (0.6-4.6); Lymphocytes % 14.9 %; Mean Corpuscular HGB Conc 31.2 g/dL (31.6-35.5); Mean Corpuscular Hemoglobin 26.2 pg (28.0-33.3); Mean Platelet Volume 8.8 fL (9.4-12.4); Monocytes % 12.3 %; Neutrophils # 5.2 K/mcL (1.6-8.9); Nucleated Red Blood Cells 0.2 /100 WBC (0); Platelet Count 292 K/mcL (140-400); Red Blood Count 3.82 M/mcL (3.82-4.97); Red Cell Distribution Width 14.5 % (11.5-14.5); Segmented Neutrophils % 62.5 %; White Blood Count 8.2 K/mcL (4.3-11.1)
[2021-10-03 11:09] LABS: BUN/Creatinine Ratio 29 (6-26); Blood Urea Nitrogen 28 mg/dL (6-20); Calcium 8.9 mg/dL (8.6-10.3); Carbon Dioxide 25 mEq/L (23-29); Chloride 91 mEq/L (98-107); Glucose 336 mg/dL (70-105); Osmolality,Calculated 277 (280-300); Potassium 5.3 mEq/L (3.5-5.1); Sodium 124 mEq/L (136-145); eGFR For African Americans > 60 (> 60); eGFR For Non-African Americans > 60 (> 60)
[2021-10-03] MEDS: Ertapenem 1,000 MG in 0.9 % Sodium Chloride Mini Bag 100 ML IVPB SCH (11:56)
[2021-10-03] MEDS: Gabapentin 100 MG CAPSULE PO SCH ×3 (11:56→19:56)
[2021-10-03 16:21] LABS: Adenovirus Not Detected (Not Detect); Bordetella Pertussis Not Detected (Not Detect); Chlamydophila pneumoniae Not Detected (Not Detect); Coronavirus 229E Not Detected (Not Detect); Coronavirus HKU1 Not Detected (Not Detect); Coronavirus NL63 Not Detected (Not Detect); Coronavirus OC43 Not Detected (Not Detect); Human Metapneumovirus Not Detected (Not Detect); Human Rhinovirus/Enterovirus Not Detected (Not Detect); Influenza A Subtype 2009 H1 Not Detected (Not Detect); Influenza B Not Detected (Not Detect); Mycoplasma pneumoniae Not Detected (Not Detect); Parainfluenza Virus 1 Not Detected (Not Detect); Parainfluenza Virus 2 Not Detected (Not Detect); Parainfluenza Virus 3 Not Detected (Not Detect); Parainfluenza Virus 4 Not Detected (Not Detect); Respiratory Syncytial Virus Not Detected (Not Detect); SARS-CoV-2 Not Detected (Not Detect)
[2021-10-03] MEDS: Azithromycin 500 MG in 0.9 % Sodium Chloride 250 ML IVPB SCH (17:19)
[2021-10-03] MEDS: MethylPREDNISolone 40 MG/ML VIAL IVP SCH (17:20)
[2021-10-03] MEDS: Pantoprazole 40 MG VIAL IVP SCH (18:01)
[2021-10-03] MEDS ORDERED: Vancomycin 1,500 MG/265 ML IV.SOLN IVPB SCH (19:00)
[2021-10-03] MEDS: Furosemide 40 MG/4 ML VIAL IVP SCH (19:55)
[2021-10-03] MEDS: Melatonin 3 MG TABLET PO SCH (19:56)
[2021-10-03] MEDS: QUEtiapine Fumarate 100 MG TABLET PO SCH (19:56)
[2021-10-04] MEDS: *HR* Heparin 5,000 UNIT/ML VIAL SQ SCH ×4 (00:15→23:45)
[2021-10-04] MEDS: MethylPREDNISolone 40 MG/ML VIAL IVP SCH ×4 (00:15→23:44)
[2021-10-04] MEDS: Ipratropium/Albuterol Neb 3 ML IH SCH ×4 (04:18→21:48)
[2021-10-04 07:10] LABS: Hematocrit 31.6 % (35.3-44.9); Hemoglobin 9.9 g/dL (11.5-15.4); Mean Corpuscular HGB Conc 31.3 g/dL (31.6-35.5); Mean Corpuscular Hemoglobin 25.6 pg (28.0-33.3); Mean Corpuscular Volume 81.7 fL (83.0-100.0); Mean Platelet Volume 8.7 fL (9.4-12.4); Platelet Count 322 K/mcL (140-400); Red Blood Count 3.87 M/mcL (3.82-4.97); Red Cell Distribution Width 14.1 % (11.5-14.5); White Blood Count 8.2 K/mcL (4.3-11.1)
[2021-10-04 07:30] LABS: BUN/Creatinine Ratio 37 (6-26); Blood Urea Nitrogen 33 mg/dL (6-20); Calcium 9.3 mg/dL (8.6-10.3); Carbon Dioxide 28 mEq/L (23-29); Chloride 90 mEq/L (98-107); Glucose 393 mg/dL (70-105); Osmolality,Calculated 294 (280-300); Potassium 4.9 mEq/L (3.5-5.1); Sodium 130 mEq/L (136-145); eGFR For African Americans > 60 (> 60); eGFR For Non-African Americans > 60 (> 60)
[2021-10-04] MEDS: Ammonium Lactate 30 APPL/225 GM BOTTLE TP SCH ×2 (07:41→20:33)
[2021-10-04] MEDS: Clotrimazole/Betameth Dip CRM 45 APPL/45 GM TUBE TP SCH ×2 (07:42→20:35)
[2021-10-04] MEDS: Nystatin Cream 15 GM TUBE TP SCH ×2 (07:42→20:35)
[2021-10-04] MEDS: Pimavanserin Tartrate [Nuplazid] 34 MG Capsule PO SCH (07:43)
[2021-10-04] MEDS: Mirabegron [Myrbetriq] 50 MG Tab.Er.24h PO SCH (07:43)
[2021-10-04 07:50] LABS: Lymphocytes # 0.3 K/mcL (0.6-4.6); Monocytes # 1.2 K/mcL (0.0-1.3)
[2021-10-04 07:52] LABS: Anisocytosis 1+ (Not Present); Hypochromasia Present (Not Present); Platelet Estimate Normal (Normal); Poikilocytosis 1+ (Not Present)
[2021-10-04 07:56] LABS: Neutrophils # 6.7 K/mcL (1.6-8.9)
[2021-10-04] MEDS: Insulin LISPRO 300 UNITS/3 ML VIAL SUBQ SCH ×5 (08:14→15:30)
[2021-10-04] MEDS: Cholecalciferol (D-3) 1,000 UNIT (25MCG) TABLET PO SCH (08:15)
[2021-10-04] MEDS: cloNIDine HCL 0.1 MG TABLET PO SCH ×2 (08:15→20:33)
[2021-10-04] MEDS: hydrOXYzine pamoate 25 MG CAPSULE PO SCH ×2 (08:16→20:34)
[2021-10-04] MEDS: Divalproex (24 HR) 500 MG TABLET PO SCH (08:16)
[2021-10-04] MEDS: diazePAM 2 MG TABLET PO SCH ×2 (08:16→20:34)
[2021-10-04] MEDS: Lactobacillus 1 EACH CAP.SPRINK PO SCH (08:16)
[2021-10-04] MEDS: Gabapentin 100 MG CAPSULE PO SCH ×3 (08:16→20:34)
[2021-10-04] MEDS: Benzonatate 100 MG CAPSULE PO PRN (08:17)
[2021-10-04] MEDS: QUEtiapine Fumarate 25 MG TABLET PO SCH (08:17)
[2021-10-04] MEDS: Loratadine 10 MG TABLET PO SCH (08:17)
[2021-10-04] MEDS: Venlafaxine XR (24 HR) 37.5 MG CAP.ER.24H PO SCH (08:17)
[2021-10-04] MEDS: Furosemide 40 MG/4 ML VIAL IVP SCH ×2 (08:18→20:33)
[2021-10-04] MEDS: Fluticasone Propionate Nasal 50 MCG/SPRAY BOTTLE NS SCH ×2 (08:18→20:34)
[2021-10-04] MEDS: Insulin DETEMIR 100 UNIT/ML X5UNITS SUBQ SCH ×2 (08:18→21:07)
[2021-10-04] MEDS: Nystatin POWDER 30 GM BOTTLE TP SCH ×2 (08:19→20:35)
[2021-10-04] MEDS: Pantoprazole 40 MG VIAL IVP SCH (08:20)
[2021-10-04] MEDS: Vancomycin 1,250 MG/262.5 ML IV.SOLN IVPB SCH ×2 (08:20→21:06)
[2021-10-04] MEDS ORDERED: Insulin Regular, Human 100 UNIT/ML IV ONE (08:41)
[2021-10-04] MEDS ORDERED: Insulin Human Regular 5 UNIT in 0.9 % Sodium Chloride 10 ML IV ONE (08:46)
[2021-10-04] MEDS ORDERED: Insulin DETEMIR 100 UNIT/ML X5UNITS SUBQ ONE (09:00)
[2021-10-04] MEDS ORDERED: Insulin DETEMIR 100 UNIT/ML X5UNITS SUBQ SCH ×2 (09:00→21:00)
[2021-10-04] MEDS: Budesonide/Formoterol 80/4.5 1 PUFF INH IH SCH ×2 (10:25→21:49)
[2021-10-04] MEDS: Ertapenem 1,000 MG in 0.9 % Sodium Chloride Mini Bag 100 ML IVPB SCH (12:22)
[2021-10-04] MEDS ORDERED: Magnesium Sulfate 1 GM/102 ML PIGGYBACK IVPB ONE (14:41)
[2021-10-04] MEDS: Azithromycin 500 MG in 0.9 % Sodium Chloride 250 ML IVPB SCH (16:30)
[2021-10-04] MEDS: QUEtiapine Fumarate 100 MG TABLET PO SCH (20:33)
[2021-10-04] MEDS: Melatonin 3 MG TABLET PO SCH (20:34)
[2021-10-05] MEDS: Benzonatate 100 MG CAPSULE PO PRN ×2 (04:15→19:59)
[2021-10-05] MEDS: Acetaminophen 325 MG TABLET PO PRN (04:15)
[2021-10-05] MEDS: Ipratropium/Albuterol Neb 3 ML IH SCH ×4 (04:20→20:08)
[2021-10-05 04:41] LABS: Mixed Venous Blood pCO2 46 mmHg (44-46); Mixed Venous Blood pH 7.43 pH Units (7.34-7.36); Mixed Venous Blood pO2 41 mmHg (35-45)
[2021-10-05 04:57] LABS: Hematocrit 31.2 % (35.3-44.9); Hemoglobin 9.8 g/dL (11.5-15.4); Mean Corpuscular HGB Conc 31.4 g/dL (31.6-35.5); Mean Corpuscular Hemoglobin 25.7 pg (28.0-33.3); Mean Corpuscular Volume 81.9 fL (83.0-100.0); Mean Platelet Volume 8.5 fL (9.4-12.4); Nucleated Red Blood Cells 0.2 /100 WBC (0); Platelet Count 372 K/mcL (140-400); Red Blood Count 3.81 M/mcL (3.82-4.97); Red Cell Distribution Width 14.3 % (11.5-14.5); White Blood Count 9.2 K/mcL (4.3-11.1)
[2021-10-05 05:08] LABS: BUN/Creatinine Ratio 45 (6-26); Blood Urea Nitrogen 43 mg/dL (6-20); Calcium 9.2 mg/dL (8.6-10.3); Carbon Dioxide 32 mEq/L (23-29); Chloride 91 mEq/L (98-107); Glucose 303 mg/dL (70-105); Magnesium 2.2 mg/dL (1.6-2.6); Osmolality,Calculated 296 (280-300); Potassium 4.3 mEq/L (3.5-5.1); Sodium 132 mEq/L (136-145); eGFR For African Americans > 60 (> 60); eGFR For Non-African Americans > 60 (> 60)
[2021-10-05 06:45] LABS: Lymphocytes # 2.2 K/mcL (0.6-4.6); Monocytes # 0.6 K/mcL (0.0-1.3); Neutrophils # 6.4 K/mcL (1.6-8.9); Platelet Estimate Normal (Normal)
[2021-10-05] MEDS: Divalproex (24 HR) 500 MG TABLET PO SCH (08:40)
[2021-10-05] MEDS: Venlafaxine XR (24 HR) 37.5 MG CAP.ER.24H PO SCH (08:41)
[2021-10-05] MEDS: Furosemide 40 MG/4 ML VIAL IVP SCH ×2 (08:41→19:58)
[2021-10-05] MEDS: Lactobacillus 1 EACH CAP.SPRINK PO SCH (08:41)
[2021-10-05] MEDS: Pantoprazole 40 MG VIAL IVP SCH (08:42)
[2021-10-05] MEDS: Gabapentin 100 MG CAPSULE PO SCH ×3 (08:42→19:59)
[2021-10-05] MEDS: cloNIDine HCL 0.1 MG TABLET PO SCH ×2 (08:42→19:59)
[2021-10-05] MEDS: QUEtiapine Fumarate 25 MG TABLET PO SCH (08:42)
[2021-10-05] MEDS: Cholecalciferol (D-3) 1,000 UNIT (25MCG) TABLET PO SCH (08:42)
[2021-10-05] MEDS: hydrOXYzine pamoate 25 MG CAPSULE PO SCH ×2 (08:43→19:59)
[2021-10-05] MEDS: diazePAM 2 MG TABLET PO SCH ×2 (08:43→19:58)
[2021-10-05] MEDS: Loratadine 10 MG TABLET PO SCH (08:43)
[2021-10-05] MEDS: MethylPREDNISolone 40 MG/ML VIAL IVP SCH ×2 (08:43→14:38)
[2021-10-05] MEDS: *HR* Heparin 5,000 UNIT/ML VIAL SQ SCH ×2 (08:43→14:38)
[2021-10-05] MEDS: Insulin LISPRO 300 UNITS/3 ML VIAL SUBQ SCH ×6 (08:44→17:30)
[2021-10-05] MEDS: Fluticasone Propionate Nasal 50 MCG/SPRAY BOTTLE NS SCH ×2 (08:45→20:00)
[2021-10-05] MEDS: Clotrimazole/Betameth Dip CRM 45 APPL/45 GM TUBE TP SCH ×2 (08:45→20:00)
[2021-10-05] MEDS: Insulin DETEMIR 100 UNIT/ML X5UNITS SUBQ SCH ×2 (08:45→20:02)
[2021-10-05] MEDS: Nystatin Cream 15 GM TUBE TP SCH ×2 (08:45→20:00)
[2021-10-05] MEDS: Nystatin POWDER 30 GM BOTTLE TP SCH ×2 (08:46→20:00)
[2021-10-05] MEDS: Mirabegron [Myrbetriq] 50 MG Tab.Er.24h PO SCH (08:46)
[2021-10-05] MEDS: Pimavanserin Tartrate [Nuplazid] 34 MG Capsule PO SCH (08:46)
[2021-10-05] MEDS: Ammonium Lactate 30 APPL/225 GM BOTTLE TP SCH ×2 (08:47→20:00)
[2021-10-05] MEDS: Vancomycin 1,250 MG/262.5 ML IV.SOLN IVPB SCH ×2 (08:47→19:59)
[2021-10-05] MEDS: Budesonide/Formoterol 80/4.5 1 PUFF INH IH SCH ×2 (10:15→20:15)
[2021-10-05] MEDS: Ertapenem 1,000 MG in 0.9 % Sodium Chloride Mini Bag 100 ML IVPB SCH (13:24)
[2021-10-05] MEDS ORDERED: Insulin Regular, Human 100 UNIT/ML IV ONE (16:04)
[2021-10-05] MEDS: Azithromycin 500 MG in 0.9 % Sodium Chloride 250 ML IVPB SCH (17:29)
[2021-10-05] MEDS: Melatonin 3 MG TABLET PO SCH (19:58)
[2021-10-05] MEDS: QUEtiapine Fumarate 100 MG TABLET PO SCH (19:59)
[2021-10-06] MEDS: *HR* Heparin 5,000 UNIT/ML VIAL SQ SCH ×3 (01:46→19:22)
[2021-10-06] MEDS: MethylPREDNISolone 40 MG/ML VIAL IVP SCH ×2 (01:46→08:54)
[2021-10-06] MEDS: Acetaminophen 325 MG TABLET PO PRN (01:53)
[2021-10-06] MEDS: Ipratropium/Albuterol Neb 3 ML IH SCH ×4 (03:28→22:26)
[2021-10-06] MEDS: Gabapentin 100 MG CAPSULE PO SCH ×3 (08:54→21:25)
[2021-10-06] MEDS: Divalproex (24 HR) 500 MG TABLET PO SCH (08:54)
[2021-10-06] MEDS: cloNIDine HCL 0.1 MG TABLET PO SCH ×2 (08:54→21:25)
[2021-10-06] MEDS: Lactobacillus 1 EACH CAP.SPRINK PO SCH (08:54)
[2021-10-06] MEDS: Loratadine 10 MG TABLET PO SCH (08:54)
[2021-10-06] MEDS: Cholecalciferol (D-3) 1,000 UNIT (25MCG) TABLET PO SCH (08:54)
[2021-10-06] MEDS: Furosemide 40 MG/4 ML VIAL IVP SCH (08:55)
[2021-10-06] MEDS: Pantoprazole 40 MG VIAL IVP SCH (08:55)
[2021-10-06] MEDS: Fluticasone Propionate Nasal 50 MCG/SPRAY BOTTLE NS SCH ×2 (08:56→21:27)
[2021-10-06] MEDS: Insulin LISPRO 300 UNITS/3 ML VIAL SUBQ SCH ×6 (08:57→19:23)
[2021-10-06] MEDS: Ammonium Lactate 30 APPL/225 GM BOTTLE TP SCH ×2 (08:58→21:28)
[2021-10-06] MEDS: Nystatin Cream 15 GM TUBE TP SCH ×2 (08:59→21:27)
[2021-10-06] MEDS: Pimavanserin Tartrate [Nuplazid] 34 MG Capsule PO SCH (08:59)
[2021-10-06] MEDS: Nystatin POWDER 30 GM BOTTLE TP SCH ×2 (08:59→22:30)
[2021-10-06] MEDS: Mirabegron [Myrbetriq] 50 MG Tab.Er.24h PO SCH (08:59)
[2021-10-06] MEDS: Clotrimazole/Betameth Dip CRM 45 APPL/45 GM TUBE TP SCH ×2 (08:59→21:28)
[2021-10-06] MEDS: Venlafaxine XR (24 HR) 37.5 MG CAP.ER.24H PO SCH (09:03)
[2021-10-06] MEDS: QUEtiapine Fumarate 25 MG TABLET PO SCH (09:03)
[2021-10-06] MEDS: hydrOXYzine pamoate 25 MG CAPSULE PO SCH ×2 (09:03→21:26)
[2021-10-06] MEDS: Insulin DETEMIR 100 UNIT/ML X5UNITS SUBQ SCH ×2 (09:04→21:27)
[2021-10-06] MEDS: diazePAM 2 MG TABLET PO SCH ×2 (09:04→21:25)
[2021-10-06 09:47] LABS: Hematocrit 33.6 % (35.3-44.9); Hemoglobin 10.6 g/dL (11.5-15.4); Mean Corpuscular HGB Conc 31.5 g/dL (31.6-35.5); Mean Corpuscular Hemoglobin 25.7 pg (28.0-33.3); Mean Corpuscular Volume 81.6 fL (83.0-100.0); Mean Platelet Volume 8.3 fL (9.4-12.4); Nucleated Red Blood Cells 0.4 /100 WBC (0); Platelet Count 403 K/mcL (140-400); Red Blood Count 4.12 M/mcL (3.82-4.97); Red Cell Distribution Width 14.3 % (11.5-14.5); White Blood Count 9.5 K/mcL (4.3-11.1)
[2021-10-06 10:05] LABS: BUN/Creatinine Ratio 48 (6-26); Blood Urea Nitrogen 45 mg/dL (6-20); Calcium 9.3 mg/dL (8.6-10.3); Carbon Dioxide 34 mEq/L (23-29); Chloride 90 mEq/L (98-107); Glucose 298 mg/dL (70-105); Osmolality,Calculated 297 (280-300); Potassium 4.5 mEq/L (3.5-5.1); Sodium 132 mEq/L (136-145); eGFR For African Americans > 60 (> 60); eGFR For Non-African Americans > 60 (> 60)
[2021-10-06 10:24] LABS: Monocytes # 1.3 K/mcL (0.0-1.3); Neutrophils # 5.1 K/mcL (1.6-8.9)
[2021-10-06 10:25] LABS: Large Platelets Present (Not Present)
[2021-10-06] MEDS: Budesonide/Formoterol 80/4.5 1 PUFF INH IH SCH ×2 (10:27→22:26)
[2021-10-06] MEDS: Furosemide 40 MG TABLET PO SCH (19:23)
[2021-10-06] MEDS: Vancomycin 1,250 MG/262.5 ML IV.SOLN IVPB SCH (20:34)
[2021-10-06] MEDS: Ertapenem 1,000 MG in 0.9 % Sodium Chloride Mini Bag 100 ML IVPB SCH (20:35)
[2021-10-06] MEDS: Melatonin 3 MG TABLET PO SCH (21:26)
[2021-10-06] MEDS: QUEtiapine Fumarate 100 MG TABLET PO SCH (21:26)
[2021-10-07] MEDS: *HR* Heparin 5,000 UNIT/ML VIAL SQ SCH ×3 (01:00→16:39)
[2021-10-07] MEDS: Ipratropium/Albuterol Neb 3 ML IH SCH ×3 (03:52→10:35)
[2021-10-07] MEDS: Benzonatate 100 MG CAPSULE PO PRN (04:39)
[2021-10-07] MEDS: Acetaminophen 325 MG TABLET PO PRN (04:39)
[2021-10-07 05:12] LABS: Hemoglobin 10.1 g/dL (11.5-15.4); Mean Corpuscular HGB Conc 31.6 g/dL (31.6-35.5); Mean Corpuscular Hemoglobin 25.6 pg (28.0-33.3); Mean Corpuscular Volume 81.2 fL (83.0-100.0); Mean Platelet Volume 8.2 fL (9.4-12.4); Platelet Count 403 K/mcL (140-400); Red Blood Count 3.94 M/mcL (3.82-4.97); Red Cell Distribution Width 14.3 % (11.5-14.5); White Blood Count 10.8 K/mcL (4.3-11.1)
[2021-10-07 05:39] LABS: BUN/Creatinine Ratio 55 (6-26); Blood Urea Nitrogen 52 mg/dL (6-20); Carbon Dioxide 34 mEq/L (23-29); Chloride 89 mEq/L (98-107); Glucose 108 mg/dL (70-105); Magnesium 1.6 mg/dL (1.6-2.6); Osmolality,Calculated 289 (280-300); Potassium 3.3 mEq/L (3.5-5.1); Sodium 132 mEq/L (136-145); eGFR For African Americans > 60 (> 60); eGFR For Non-African Americans > 60 (> 60)
[2021-10-07] MEDS: Venlafaxine XR (24 HR) 37.5 MG CAP.ER.24H PO SCH (07:47)
[2021-10-07] MEDS: Loratadine 10 MG TABLET PO SCH (07:47)
[2021-10-07] MEDS: cloNIDine HCL 0.1 MG TABLET PO SCH ×2 (07:47→20:39)
[2021-10-07] MEDS: Lactobacillus 1 EACH CAP.SPRINK PO SCH (07:47)
[2021-10-07] MEDS: hydrOXYzine pamoate 25 MG CAPSULE PO SCH ×2 (07:48→20:39)
[2021-10-07] MEDS: Gabapentin 100 MG CAPSULE PO SCH ×3 (07:48→20:39)
[2021-10-07] MEDS: predniSONE 20 MG TABLET PO SCH (07:48)
[2021-10-07] MEDS: Cholecalciferol (D-3) 1,000 UNIT (25MCG) TABLET PO SCH (07:48)
[2021-10-07] MEDS: diazePAM 2 MG TABLET PO SCH ×2 (07:48→20:39)
[2021-10-07] MEDS: QUEtiapine Fumarate 25 MG TABLET PO SCH (07:48)
[2021-10-07] MEDS: Furosemide 40 MG TABLET PO SCH ×2 (07:48→16:39)
[2021-10-07] MEDS: Divalproex (24 HR) 500 MG TABLET PO SCH (07:53)
[2021-10-07] MEDS: Insulin DETEMIR 100 UNIT/ML X5UNITS SUBQ SCH ×2 (07:53→21:02)
[2021-10-07] MEDS: Ammonium Lactate 30 APPL/225 GM BOTTLE TP SCH ×2 (07:55→20:41)
[2021-10-07] MEDS: Nystatin Cream 15 GM TUBE TP SCH ×2 (07:55→20:42)
[2021-10-07] MEDS: Clotrimazole/Betameth Dip CRM 45 APPL/45 GM TUBE TP SCH ×2 (07:56→20:42)
[2021-10-07] MEDS: Insulin LISPRO 300 UNITS/3 ML VIAL SUBQ SCH ×6 (07:56→16:38)
[2021-10-07] MEDS: Nystatin POWDER 30 GM BOTTLE TP SCH ×2 (07:56→20:42)
[2021-10-07] MEDS: Fluticasone Propionate Nasal 50 MCG/SPRAY BOTTLE NS SCH ×2 (07:57→20:41)
[2021-10-07] MEDS: Mirabegron [Myrbetriq] 50 MG Tab.Er.24h PO SCH (08:07)
[2021-10-07] MEDS: Pimavanserin Tartrate [Nuplazid] 34 MG Capsule PO SCH (08:07)
[2021-10-07] MEDS: Budesonide/Formoterol 80/4.5 1 PUFF INH IH SCH ×2 (10:33→20:23)
[2021-10-07] MEDS ORDERED: Ipratropium/Albuterol Neb 3 ML IH PRN (11:15)
[2021-10-07] MEDS: Melatonin 3 MG TABLET PO SCH (20:39)
[2021-10-07] MEDS: QUEtiapine Fumarate 100 MG TABLET PO SCH (20:41)
[2021-10-08] MEDS: *HR* Heparin 5,000 UNIT/ML VIAL SQ SCH ×4 (00:42→23:53)
[2021-10-08 05:24] LABS: BUN/Creatinine Ratio 45 (6-26); Blood Urea Nitrogen 44 mg/dL (6-20); Carbon Dioxide 34 mEq/L (23-29); Chloride 93 mEq/L (98-107); Glucose 107 mg/dL (70-105); Osmolality,Calculated 290 (280-300); Potassium 3.3 mEq/L (3.5-5.1); Sodium 134 mEq/L (136-145); eGFR For African Americans > 60 (> 60); eGFR For Non-African Americans 60 (> 60)
[2021-10-08 05:31] LABS: Hematocrit 30.8 % (35.3-44.9); Hemoglobin 9.8 g/dL (11.5-15.4); Mean Corpuscular HGB Conc 31.8 g/dL (31.6-35.5); Mean Corpuscular Hemoglobin 25.9 pg (28.0-33.3); Mean Corpuscular Volume 81.5 fL (83.0-100.0); Mean Platelet Volume 8.4 fL (9.4-12.4); Platelet Count 403 K/mcL (140-400); Red Blood Count 3.78 M/mcL (3.82-4.97); Red Cell Distribution Width 14.5 % (11.5-14.5); White Blood Count 10.5 K/mcL (4.3-11.1)
[2021-10-08] MEDS: Budesonide/Formoterol 80/4.5 1 PUFF INH IH SCH ×2 (07:48→20:26)
[2021-10-08] MEDS: Gabapentin 100 MG CAPSULE PO SCH ×3 (09:18→21:25)
[2021-10-08] MEDS: diazePAM 2 MG TABLET PO SCH ×2 (09:18→21:25)
[2021-10-08] MEDS: Divalproex (24 HR) 500 MG TABLET PO SCH (09:18)
[2021-10-08] MEDS: cloNIDine HCL 0.1 MG TABLET PO SCH ×2 (09:19→21:25)
[2021-10-08] MEDS: Venlafaxine XR (24 HR) 37.5 MG CAP.ER.24H PO SCH (09:19)
[2021-10-08] MEDS: QUEtiapine Fumarate 25 MG TABLET PO SCH (09:19)
[2021-10-08] MEDS: Lactobacillus 1 EACH CAP.SPRINK PO SCH (09:19)
[2021-10-08] MEDS: Cholecalciferol (D-3) 1,000 UNIT (25MCG) TABLET PO SCH (09:19)
[2021-10-08] MEDS: hydrOXYzine pamoate 25 MG CAPSULE PO SCH ×2 (09:19→21:25)
[2021-10-08] MEDS: Loratadine 10 MG TABLET PO SCH (09:20)
[2021-10-08] MEDS: predniSONE 20 MG TABLET PO SCH (09:20)
[2021-10-08] MEDS: Furosemide 40 MG TABLET PO SCH ×2 (09:20→17:52)
[2021-10-08] MEDS: Insulin DETEMIR 100 UNIT/ML X5UNITS SUBQ SCH ×2 (09:21→21:26)
[2021-10-08] MEDS: Insulin LISPRO 300 UNITS/3 ML VIAL SUBQ SCH ×6 (09:21→17:52)
[2021-10-08] MEDS: Fluticasone Propionate Nasal 50 MCG/SPRAY BOTTLE NS SCH ×2 (09:23→21:32)
[2021-10-08] MEDS: Clotrimazole/Betameth Dip CRM 45 APPL/45 GM TUBE TP SCH ×2 (09:24→21:33)
[2021-10-08] MEDS: Ammonium Lactate 30 APPL/225 GM BOTTLE TP SCH ×2 (09:24→21:31)
[2021-10-08] MEDS: Nystatin Cream 15 GM TUBE TP SCH ×2 (09:24→21:31)
[2021-10-08] MEDS: Nystatin POWDER 30 GM BOTTLE TP SCH ×2 (09:24→21:31)
[2021-10-08] MEDS: Pimavanserin Tartrate [Nuplazid] 34 MG Capsule PO SCH (09:25)
[2021-10-08] MEDS: Mirabegron [Myrbetriq] 50 MG Tab.Er.24h PO SCH (09:25)
[2021-10-08] MEDS: Melatonin 3 MG TABLET PO SCH (21:25)
[2021-10-08] MEDS: QUEtiapine Fumarate 100 MG TABLET PO SCH (21:26)
[2021-10-08] MEDS: Acetaminophen 325 MG TABLET PO PRN (23:48)
[2021-10-09 05:51] LABS: Hematocrit 30.3 % (35.3-44.9); Hemoglobin 9.6 g/dL (11.5-15.4); Mean Corpuscular HGB Conc 31.7 g/dL (31.6-35.5); Mean Corpuscular Hemoglobin 26.2 pg (28.0-33.3); Mean Corpuscular Volume 82.6 fL (83.0-100.0); Mean Platelet Volume 8.4 fL (9.4-12.4); Platelet Count 386 K/mcL (140-400); Red Blood Count 3.67 M/mcL (3.82-4.97); Red Cell Distribution Width 14.6 % (11.5-14.5); White Blood Count 10.4 K/mcL (4.3-11.1)
[2021-10-09 06:09] LABS: BUN/Creatinine Ratio 47 (6-26); Blood Urea Nitrogen 44 mg/dL (6-20); Calcium 8.6 mg/dL (8.6-10.3); Carbon Dioxide 33 mEq/L (23-29); Chloride 98 mEq/L (98-107); Glucose 96 mg/dL (70-105); Magnesium 1.9 mg/dL (1.6-2.6); Osmolality,Calculated 291 (280-300); Potassium 4.1 mEq/L (3.5-5.1); Sodium 135 mEq/L (136-145); eGFR For African Americans > 60 (> 60); eGFR For Non-African Americans > 60 (> 60)
[2021-10-09] MEDS: Insulin LISPRO 300 UNITS/3 ML VIAL SUBQ SCH ×6 (07:45→17:21)
[2021-10-09] MEDS: Furosemide 40 MG TABLET PO SCH ×2 (07:47→17:24)
[2021-10-09] MEDS: diazePAM 2 MG TABLET PO SCH ×2 (07:47→21:24)
[2021-10-09] MEDS: predniSONE 20 MG TABLET PO SCH (07:47)
[2021-10-09] MEDS: Venlafaxine XR (24 HR) 37.5 MG CAP.ER.24H PO SCH (07:47)
[2021-10-09] MEDS: Divalproex (24 HR) 500 MG TABLET PO SCH (07:47)
[2021-10-09] MEDS: Gabapentin 100 MG CAPSULE PO SCH ×3 (07:47→21:24)
[2021-10-09] MEDS: QUEtiapine Fumarate 25 MG TABLET PO SCH (07:47)
[2021-10-09] MEDS: Cholecalciferol (D-3) 1,000 UNIT (25MCG) TABLET PO SCH (07:47)
[2021-10-09] MEDS: cloNIDine HCL 0.1 MG TABLET PO SCH ×2 (07:48→21:24)
[2021-10-09] MEDS: *HR* Heparin 5,000 UNIT/ML VIAL SQ SCH ×2 (07:48→17:24)
[2021-10-09] MEDS: Loratadine 10 MG TABLET PO SCH (07:48)
[2021-10-09] MEDS: Insulin DETEMIR 100 UNIT/ML X5UNITS SUBQ SCH ×2 (07:48→21:28)
[2021-10-09] MEDS: hydrOXYzine pamoate 25 MG CAPSULE PO SCH ×2 (07:48→21:25)
[2021-10-09] MEDS: Lactobacillus 1 EACH CAP.SPRINK PO SCH (07:48)
[2021-10-09] MEDS: Ammonium Lactate 30 APPL/225 GM BOTTLE TP SCH ×2 (07:49→21:30)
[2021-10-09] MEDS: Fluticasone Propionate Nasal 50 MCG/SPRAY BOTTLE NS SCH ×2 (07:49→21:31)
[2021-10-09] MEDS: Nystatin POWDER 30 GM BOTTLE TP SCH ×2 (07:49→21:31)
[2021-10-09] MEDS: Clotrimazole/Betameth Dip CRM 45 APPL/45 GM TUBE TP SCH ×2 (07:50→21:31)
[2021-10-09] MEDS: Pimavanserin Tartrate [Nuplazid] 34 MG Capsule PO SCH (07:50)
[2021-10-09] MEDS: Mirabegron [Myrbetriq] 50 MG Tab.Er.24h PO SCH (07:50)
[2021-10-09] MEDS: Nystatin Cream 15 GM TUBE TP SCH ×2 (07:53→21:31)
[2021-10-09] MEDS: Budesonide/Formoterol 80/4.5 1 PUFF INH IH SCH ×2 (12:11→20:06)
[2021-10-09] MEDS: Melatonin 3 MG TABLET PO SCH (21:24)
[2021-10-09] MEDS: QUEtiapine Fumarate 100 MG TABLET PO SCH (21:25)
[2021-10-10] MEDS: *HR* Heparin 5,000 UNIT/ML VIAL SQ SCH ×2 (00:54→08:43)
[2021-10-10 01:10] LABS: Hematocrit 30.7 % (35.3-44.9); Hemoglobin 9.6 g/dL (11.5-15.4); Mean Corpuscular HGB Conc 31.3 g/dL (31.6-35.5); Mean Corpuscular Hemoglobin 25.9 pg (28.0-33.3); Mean Corpuscular Volume 82.7 fL (83.0-100.0); Mean Platelet Volume 8.3 fL (9.4-12.4); Platelet Count 374 K/mcL (140-400); Red Blood Count 3.71 M/mcL (3.82-4.97); Red Cell Distribution Width 14.8 % (11.5-14.5); White Blood Count 11.9 K/mcL (4.3-11.1)
[2021-10-10 01:35] LABS: BUN/Creatinine Ratio 44 (6-26); Blood Urea Nitrogen 38 mg/dL (6-20); Calcium 8.9 mg/dL (8.6-10.3); Carbon Dioxide 32 mEq/L (23-29); Chloride 96 mEq/L (98-107); Glucose 96 mg/dL (70-105); Magnesium 1.8 mg/dL (1.6-2.6); Osmolality,Calculated 289 (280-300); Sodium 135 mEq/L (136-145); eGFR For African Americans > 60 (> 60); eGFR For Non-African Americans > 60 (> 60)
[2021-10-10] MEDS: Budesonide/Formoterol 80/4.5 1 PUFF INH IH SCH (07:51)
[2021-10-10] MEDS: hydrOXYzine pamoate 25 MG CAPSULE PO SCH (08:37)
[2021-10-10] MEDS: Loratadine 10 MG TABLET PO SCH (08:38)
[2021-10-10] MEDS: Furosemide 40 MG TABLET PO SCH (08:38)
[2021-10-10] MEDS: Gabapentin 100 MG CAPSULE PO SCH ×2 (08:38→14:36)
[2021-10-10] MEDS: predniSONE 20 MG TABLET PO SCH (08:39)
[2021-10-10] MEDS: QUEtiapine Fumarate 25 MG TABLET PO SCH (08:41)
[2021-10-10] MEDS: Cholecalciferol (D-3) 1,000 UNIT (25MCG) TABLET PO SCH (08:41)
[2021-10-10] MEDS: cloNIDine HCL 0.1 MG TABLET PO SCH (08:41)
[2021-10-10] MEDS: diazePAM 2 MG TABLET PO SCH (08:41)
[2021-10-10] MEDS: Venlafaxine XR (24 HR) 37.5 MG CAP.ER.24H PO SCH (08:42)
[2021-10-10] MEDS: Lactobacillus 1 EACH CAP.SPRINK PO SCH (08:42)
[2021-10-10] MEDS: Insulin DETEMIR 100 UNIT/ML X5UNITS SUBQ SCH (08:42)
[2021-10-10] MEDS: Insulin LISPRO 300 UNITS/3 ML VIAL SUBQ SCH ×4 (08:43→13:29)
[2021-10-10] MEDS: Nystatin Cream 15 GM TUBE TP SCH (08:45)
[2021-10-10] MEDS: Fluticasone Propionate Nasal 50 MCG/SPRAY BOTTLE NS SCH (08:45)
[2021-10-10] MEDS: Clotrimazole/Betameth Dip CRM 45 APPL/45 GM TUBE TP SCH (08:45)
[2021-10-10] MEDS: Nystatin POWDER 30 GM BOTTLE TP SCH (08:45)
[2021-10-10] MEDS: Ammonium Lactate 30 APPL/225 GM BOTTLE TP SCH (08:45)
[2021-10-10] MEDS: Mirabegron [Myrbetriq] 50 MG Tab.Er.24h PO SCH (08:46)
[2021-10-10] MEDS: Pimavanserin Tartrate [Nuplazid] 34 MG Capsule PO SCH (08:46)
[2021-10-10] MEDS: Divalproex (24 HR) 500 MG TABLET PO SCH (10:22)
[2021-10-10 11:43] VITALS: BP 120/80; PULSE 75; TEMP 97.9; O2SAT 97
[2021-10-10] MEDS ORDERED: Moderna Covid-19 Vaccine 100MCG/0.5mL IM ONE (13:47)
[2021-10-10 15:28] LABS: Influenza A PCR Negative (Negative); Influenza B PCR Negative (Negative); Resp. Syncytial Virus PCR Negative (Negative)
[2021-10-10 15:40] LABS: SARS-CoV-2 by PCR (In House) Negative (Negative)
== END 2021-10-10 17:57 | DRG 637 ==
LOC: EMEROOARM 09:25 → 2NNU 09:25 → SUATTDRO 17:16 → 3NENU 10-05 20:54
PROVIDERS: ADMIT General Practice; ATTEND Student in an Organized Health Care Education/Training Program